=== PATIENT | female | born 1935 | race Caucasian/White ===

== ENCOUNTER 2017-03-19 10:22 | Outpatient (CLI) | payer MEDICARE, OTHER | END 2017-03-19 10:23 | disposition home or self-care (01) | DX: Z12.31 Encounter for screening mammogram for malignant neoplasm of breast (principal); Z85.3 Personal history of malignant neoplasm of breast ==

== ENCOUNTER 2017-03-27 10:53 | Outpatient (CLI) | payer MEDICARE, OTHER | END 2017-03-27 10:54 | disposition home or self-care (01) | DX: I48.2 Chronic atrial fibrillation (principal) ==

== ENCOUNTER 2017-03-28 12:04 | Outpatient (CLI) | payer MEDICARE, OTHER | END 2017-03-28 12:05 | disposition home or self-care (01) | DX: I48.91 Unspecified atrial fibrillation (principal); I51.7 Cardiomegaly; I07.1 Rheumatic tricuspid insufficiency ==

== ENCOUNTER 2017-04-17 14:36 | Outpatient (CLI) | payer MEDICARE, OTHER | END 2017-04-17 14:37 | disposition home or self-care (01) | LOC: RT 14:36 | PROVIDERS: ATTEND Internal Medicine Cardiovascular Disease | DX: I48.91 Unspecified atrial fibrillation (principal) | CPT/HCPCS: 93005 ==

== ENCOUNTER 2017-06-02 14:08 | Outpatient (CLI) | payer MEDICARE, OTHER | END 2017-06-02 14:09 | disposition home or self-care (01) | LOC: LAB 14:08 | PROVIDERS: ATTEND Internal Medicine | DX: R07.2 Precordial pain (principal) | CPT/HCPCS: 36415; 84484 ==

== ENCOUNTER 2017-06-12 15:48 | Outpatient (CLI) | payer MEDICARE, OTHER ==
[2017-06-12 16:10] LABS: CALCIUM 8.9 mg/dL (8.5-10.3); POTASSIUM 3.8 mmol/L (3.5-5.0)
== END 2017-06-12 15:49 | disposition home or self-care (01) ==
LOC: LAB 15:48
PROVIDERS: ATTEND Internal Medicine
DX: I50.9 Heart failure, unspecified (principal)
CPT/HCPCS: 36415; 80048; 83880

== ENCOUNTER 2017-07-17 09:09 | Emergency (ER) | payer MEDICARE, OTHER ==
--- NOTE | 2017-07-17 09:28 | ED Physician Documentation ---
PD HPI CHEST PAIN - Stated complaint Stated Complaint: ELEVATED HEART RATE - Chief complaint Chief Complaint: Cardiac - History obtained from History obtained from: Patient - History of Present Illness Timing - onset: How many days ago (she has had some upper abd pains for several days. Also had chronic atrial fib, so seen in Cardiology at [facility] 2 days ago with cardioversion, which got her to NSR. She is feeling generally some nausea and mild general weakness. Still with the upper abd fullness. Is scheduled for outpt abd U/S this morning. Lowber that her heart rate was elevated briefly this morning. She was checking in for the U/S test, and told traveling clerk about the fast HR , and was suggested to be seen in the ED. She does not feel the fast heart rate while here.) Timing - onset during: Rest Timing - duration: Seconds Timing - details: Intermittant Quality: Tightness (feeling of fast heart rate intermittently the past 2 days.) Location: Left chest, Other (she has had upper abd fullness for the past week or so.) Worsened by: No: Inspiration, Movement, Palpation Associated symptoms: Palpitations. No: Shortness of air, Diaphoresis, Nausea, Feeling faint / dizzy Similar symptoms before: Diagnosis Recently seen: Clinic (Cardiology at [facility] with cardioversion atrial fib to sinus 2 days ago.) Review of Systems Constitutional: denies: Fever, Chills Nose: denies: Rhinorrhea / runny nose, Congestion Throat: denies: Sore throat Respiratory: denies: Dyspnea, Cough, Wheezing GI: reports: Abdominal Swelling (upper/right abd for a week or so), Nausea. 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 - Allergies Allergies/Adverse Reactions: Allergies Allergy/AdvReac Type Severity Reaction Status Date / Time ciprofloxacin [From Cipro] Allergy Unknown Verified 07/17/17 09:23 ciprofloxacin HCl * Allergy Unknown Verified 07/17/17 09:23 [From Cipro] Sulfa (Sulfonamide Allergy Unknown Verified 07/17/17 09:23 Antibiotics) PD ED PE NORMAL - Vitals Vital signs reviewed: Yes - General General: Alert and oriented X 3, No acute distress, Well developed/nourished - HEENT HEENT: Moist mucous membranes, Pharynx benign - Neck Neck: Supple, no meningeal sign, No adenopathy - Cardiac Cardiac: RRR, No murmur - Respiratory Respiratory: Clear bilaterally - Abdomen Abdomen: Soft, Non tender Results - Vitals Vitals: Vital Signs - 24 hr 07/17/17 07/17/17 07/17/17 09:18 10:13 10:17 Temperature 36.5 C Heart Rate 64 79 Respiratory 16 16 Rate Blood Pressure 155/70 H 151/74 H Blood Pressure 142/74 H [Left] Blood Pressure 145/78 H [Right] O2 Saturation 94 74 L 07/17/17 07/17/17 11:40 13:18 Temperature Heart Rate 83 68 Respiratory 16 16 Rate Blood Pressure 163/70 H 136/89 H Blood Pressure [Left] Blood Pressure [Right] O2 Saturation 98 100 Oxygen O2 Source Room air - Tele (time rhythm occurred) intermittent fib Telemetry / rhythm strip: Atrial fibrillation (for just few seconds, occurred twice while in ED without corresponding symptoms per patient. ) - Labs Labs: Laboratory Tests 07/17/17 07/17/17 07/17/17 09:50 09:50 09:50 WBC 9.8 RBC 4.40 Hgb 13.7 Hct 40.0 MCV 90.9 MCH 31.1 H MCHC 34.3 RDW 13.6 Plt Count 172 MPV 8.4 Neut # 7.3 H Lymph # 0.9 L [place] # 1.0 Eos # 0.4 Baso # 0.1 Absolute Nucleated RBC 0.00 Nucleated RBCs 0.0 PT 14.8 H INR 1.3 H APTT 52.1 H Sodium 140 Potassium 3.9 Chloride 106 Carbon Dioxide 25 Anion Gap 9.0 BUN 21 H Creatinine 1.0 Estimated GFR (MDRD) 53 L Glucose 111 H Calcium 9.1 Magnesium 2.0 Total Bilirubin 1.6 H AST 18 ALT 22 Alkaline Phosphatase 65 B-Natriuretic Peptide Total Protein 6.8 Albumin 3.9 Globulin 2.9 Albumin/Globulin Ratio 1.3 Lipase 17 L 07/17/17 09:50 WBC RBC Hgb Hct MCV MCH MCHC RDW Plt Count MPV Neut # Lymph # [place] # Eos # Baso # Absolute Nucleated RBC Nucleated RBCs PT INR APTT Sodium Potassium Chloride Carbon Dioxide Anion Gap BUN Creatinine Estimated GFR (MDRD) Glucose Calcium Magnesium Total Bilirubin AST ALT Alkaline Phosphatase B-Natriuretic Peptide 251 H Total Protein Albumin Globulin Albumin/Globulin Ratio Lipase - Rads (name of study) abd U/S Radiology: Prelim report reviewed (possible mass on right kidney, recommend CT. ) abd CT Radiology: Prelim report reviewed (no acute process seen. No mass on kidney.) PD MEDICAL DECISION MAKING - ED course Complexity details: reviewed results, considered differential, d/w patient, d/w supervisor home energy consultant (call her Home Appliance Washing Machine Mechanic office but he was not in office, and awaited vice president of consulting services Cardio to call back, but did not. I talked with Dr. Mejía, who will follow up with her Home Appliance Washing Machine Mechanic and defers judgement of Holter or not to him. Intermittent fib would be expected for this patient. ) Departure - Departure Disposition: 01 Home, Self Care Clinical Impression: Abdominal fullness, Intermittent atrial fibrillation Condition: Stable Record reviewed to determine appropriate education?: Yes Instructions: ED Afib Follow-Up: Edu Mejía MD [Primary Care Provider] - Comments: There were not any abnormalities seen on your CT scan. The questionable spot on the ultrasound was just a normal curvature of the kidney seen on CT. No other abnormalities noted. So that does not explain your abdominal fullness. You could consider trying a stool softener perhaps. Otherwise he did have a couple of very brief episodes of atrial fibrillation for just a few seconds at a time. Your net making supervisor was not in the office today and Dr. Pretty deferred to the net making supervisor to decide if he wanted to do any outpatient monitoring for the heart rhythm. You are on appropriate medications for it and it was not sustained so there may not be any particular treatment change. Given your net making supervisor's office a call tomorrow and talk with them. Return if worsening symptoms. Discharge Date/Time: 07/17/17 13:18
[2017-07-17 10:02] LABS: BASOPHILS # (AUTO) 0.1 10^3/uL (0.0-0.1); BASOPHILS % (AUTO) 0.8 %; EOSINOPHILS # (AUTO) 0.4 10^3/uL (0.0-0.7); EOSINOPHILS % (AUTO) 4.3 %; HGB - HEMOGLOBIN 13.7 g/dL (12.0-16.0); LYMPHOCYTES # (AUTO) 0.9 10^3/uL (1.5-3.5); LYMPHOCYTES % (AUTO) 9.5 %; MEAN CORPUSCULAR HEMOGLOBIN 31.1 pg (27.0-31.0); MEAN CORPUSCULAR HGB CONC 34.3 g/dL (32.0-36.0); MEAN CORPUSCULAR VOLUME 90.9 fL (81.0-99.0); MEAN PLATELET VOLUME 8.4 fL (7.9-10.8); MONOCYTES % (AUTO) 10.5 %; NEUTROPHILS # (AUTO) 7.3 10^3/uL (1.5-6.6); NEUTROPHILS % (AUTO) 74.9 %; RED CELL DISTRIBUTION WIDTH 13.6 % (12.0-15.0); UNCORRECTED WHITE BLOOD COUNT 9.8 x10^3/uL; WHITE BLOOD COUNT 9.8 x10^3/uL (4.8-10.8)
[2017-07-17 10:08] LABS: INR 1.3 (0.8-1.2); PT - PROTHROMBIN TIME 14.8 secs (9.9-12.6)
[2017-07-17 10:16] LABS: PARTIAL THROMBOPLASTIN TIME 52.1 secs (24.9-33.3)
[2017-07-17 10:17] LABS: ALBUMIN/GLOBULIN RATIO 1.3 (1.0-2.2); BILIRUBIN,TOTAL 1.6 mg/dL (0.2-1.0); CALCIUM 9.1 mg/dL (8.5-10.3); POTASSIUM 3.9 mmol/L (3.5-5.0); TOTAL PROTEIN 6.8 g/dL (6.7-8.2)
--- NOTE | 2017-07-17 11:23 | Ultrasound Report ---
ABDOMINAL ULTRASOUND: 07/17/2017 CLINICAL INDICATION: Abdominal distention. TECHNIQUE: Real-time scanning was performed with aircraft sales representative static images obtained. FINDINGS: Visualization is limited by bowel gas and habitus. The liver measures 17 cm. Hepatic echotexture appears unremarkable. No intrahepatic biliary dilatat ion or focal mass is appreciated. The common bile duct measures 5 mm. The gallbladder is normal. T he pancreas and inferior vena cava are obscured by bowel gas. The right kidney measures 9.7 cm, and appears unremarkable. The left kidney measures 11.6 cm, and appears to contain a 5-cm solid vascular mass in the mid pole. Further evaluation with CT IVP is recommended. The spleen measures 11 cm, an d appears unremarkable. The abdominal aorta is normal in caliber. No free fluid is present. IMPRESSION: POSSIBLE SOLID LEFT RENAL MASS. FURTHER EVALUATION WITH CT IVP IS RECOMMENDED. LIMITED VISUALIZATION DUE TO BOWEL GAS. JOB #: [id number] EXT JOB #:[id number]
[2017-07-17] MEDS ORDERED: IOPAMIDOL-300 100 ML VIAL IVP ONE (12:29)
--- NOTE | 2017-07-17 12:44 | CT Preliminary Report ---
Exam: CT Abdomen/Pelvis W/ IMPRESSION: 1. The focal area of concern seen by ultrasound corresponds to an unusual "dromedary hump" involving the lateral aspect of the left kidney. Normal anatomy is demonstrated. 2. Right kidney is normal. 3. Multilevel degenerative disk disease. 18 degrees scoliosis between L1-L2 and L4-L5. [facility] SITE ID: [id number]
--- NOTE | 2017-07-17 12:56 | CT Report ---
EXAM: CT ABDOMEN AND PELVIS EXAM DATE: 07/17/2017 12:28 PM. CLINICAL HISTORY: Kidney mass on U/S. COMPARISONS: Ultrasound done earlier today. TECHNIQUE: Routine helical CT imaging was performed through the abdomen and pelvis. IV contrast: 100 mL Isovue 300, no reaction. Enteric contrast: No. Reconstructions: Coronal and sagittal. In accordance with CT protocol optimization, one or more of the following dose reduction techniques w ere utilized for this exam: automated exposure control, adjustment of mA and/or KV based on patient s ize, or use of iterative reconstructive technique. FINDINGS: Lung Bases: Unremarkable. Liver: Normal. No masses. Gallbladder/Bile Ducts: Unremarkable. Spleen: Normal. Pancreas: Normal. Adrenal Glands: Normal. Kidneys: Focal area of concern on ultrasound corresponds to a prominent dromedary hump involving the midportion of the left kidney. No abnormal enhancement or anatomy is noted. Right kidney is normal. Peritoneal Cavity/Bowel: Normal. No free fluid, free air or adenopathy. No masses or acute inflammato ry process. The appendix is well visualized and normal. Pelvic Organs: Normal. The bladder and visualized pelvic organs are within normal limits. Vasculature: No aneurysms or other significant abnormality. Bones: Multilevel degenerative disk disease is present. 18 degrees of dextroscoliosis present between L1-L2 and L4-L5. Other: None. IMPRESSION: 1. The focal area of concern seen by ultrasound corresponds to an unusual "dromedary hump" involving the lateral aspect of the left kidney. Normal anatomy is demonstrated. 2. Right kidney is normal. 3. Multilevel degenerative disk disease. 18 degrees of scoliosis between L1-L2 and L4-L5. [facility] Referring Provider Line: [phone] SITE ID: [id number]
[2017-07-17 13:20] VITALS: BP 136/89
== END 2017-07-17 13:18 | disposition home or self-care (01) ==
LOC: ED 09:09
DX: I48.91 Unspecified atrial fibrillation (principal); R14.0 Abdominal distension (gaseous); I45.10 Unspecified right bundle-branch block
CPT/HCPCS: 36415; 74177; 76700; 80053; 83690; 83735; 83880; 85025; 85610; 85730; 93005; 99284; Q9967

== ENCOUNTER 2017-09-01 14:52 | Outpatient (CLI) | payer MEDICARE, OTHER ==
[2017-09-01 15:17] LABS: BILIRUBIN,URINE NEGATIVE (NEGATIVE)
[2017-09-01 15:45] LABS: WBC,URINE >25 /HPF (0-5)
[2017-09-01 15:46] LABS: UR CULTURE IF IND INDICATED
== END 2017-09-01 14:53 | disposition home or self-care (01) ==
LOC: LAB 14:52
PROVIDERS: ATTEND Urology
DX: R30.0 Dysuria (principal)
CPT/HCPCS: 81001; 87077; 87086

== ENCOUNTER 2017-09-11 16:51 | Outpatient (CLI) | payer MEDICARE, OTHER ==
[2017-09-11 17:29] LABS: BUN - BLOOD UREA NITROGEN 27 mg/dL (6-20); CALCIUM 9.2 mg/dL (8.5-10.3); CARBON DIOXIDE - CO2 24 mmol/L (21-32); CHLORIDE 102 mmol/L (101-111); CREATININE 1.1 mg/dL (0.4-1.0); GFR - MDRD 48 (>89); GLUCOSE 109 mg/dL (70-100); SODIUM 138 mmol/L (135-145)
== END 2017-09-11 16:52 | disposition home or self-care (01) ==
LOC: LAB 16:51
PROVIDERS: ATTEND Internal Medicine
DX: I48.92 Unspecified atrial flutter (principal); Z79.899 Other long term (current) drug therapy
CPT/HCPCS: 36415; 80048; 80162

== ENCOUNTER 2017-10-11 01:08 | Outpatient (CLI) | payer MEDICARE, OTHER | END 2017-10-11 01:09 | disposition critical access hospital (66) | LOC: EMS 01:08 | PROVIDERS: ATTEND Surgery | DX: R06.00 Dyspnea, unspecified (principal); I49.9 Cardiac arrhythmia, unspecified | CPT/HCPCS: A0425; A0427 ==

== ENCOUNTER 2017-10-11 01:19 | Observation (INO) | payer MEDICARE, OTHER ==
--- NOTE | 2017-10-11 02:36 | ED Physician Documentation ---
PD HPI DYSPNEA - Stated complaint Stated Complaint: SOA - Chief complaint Chief Complaint: Resp - History obtained from History obtained from: Patient - History of Present Illness Timing - onset: Enter time (23:00), Today Timing - onset during: Sleep Timing - details: Abrupt onset Pain level now: 0 Improved by: Rest Worsened by: Exertion Associated symptoms: Bilateral edema. No: Fever, Cough, Chest pain / discomfort , Palpitations, Diaphoresis, Unilateral edema Recently seen: Other ([facility] (outpatient setting; see below)) - Additional information Additional information: patient has h/o paroxysmal atrial fibrillation and went to [facility] yesterday for scheduled, elective cardioversion, but when she arrived, she was found to be in a normal sinus rhythm. While she was there, however, a chest xray was performed and diuretics given, as patient was dyspneic (this is per notes faxed from [facility]; patient, however, tells me she had no difficulty breathing yesterday and was told the CXR was normal). Patient awoke 11 PM tonight from sleep dyspneic, which she says she has not had before. Review of Systems Constitutional: denies: Fever, Chills, Sweats Cardiac: reports: Pedal edema. denies: Chest pain / pressure, Palpitations Respiratory: reports: Dyspnea. 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 - Present Medications Home Medications: Ambulatory Orders Medication Instructions Recorded Confirmed Acetaminophen 1 tab PO PRN PRN 10/11/17 10/11/17 Lactobacillus Acidophilus 1 tab PO DAILY 10/11/17 10/11/17 [Probiotic Acidophilus] Levothyroxine Sodium [Synthroid] 1 tab PO DAILY 10/11/17 10/11/17 Pravastatin [Pravachol] 1 tab PO DAILY 10/11/17 10/11/17 - Allergies Allergies/Adverse Reactions: Allergies Allergy/AdvReac Type Severity Reaction Status Date / Time ciprofloxacin [From Cipro] Allergy Unknown Verified 10/11/17 01:27 ciprofloxacin HCl * Allergy Unknown Verified 10/11/17 01:27 [From Cipro] Sulfa (Sulfonamide Allergy Unknown Verified 10/11/17 01:27 Antibiotics) - Social History Does the pt smoke?: No Smoking Status: Never smoker Does the pt drink ETOH?: No Does the pt have substance abuse?: No - Immunizations Immunizations are current?: Yes PD ED PE NORMAL - Vitals Vital signs reviewed: Yes - General General: Alert and oriented X 3, Well developed/nourished, Other (tachypneic; able to speak in full sentences although she becomes dyspneic with conversation) - HEENT HEENT: Moist mucous membranes - Neck Neck: Supple, no meningeal sign - Cardiac Cardiac: RRR, No murmur - Respiratory Respiratory: Clear bilaterally - Abdomen Abdomen: Soft, Non tender - Derm Derm: Normal color, Warm and dry - Neuro Neuro: Alert and oriented X 3 PD ED PE EXPANDED - Respiratory Respiratory: Other (tachypneic) - Extremities Extremities: Pedal edema bilateral (1+/mild) Results - Vitals Vitals: Vital Signs - 24 hr 10/11/17 10/11/17 10/11/17 01:24 02:20 03:59 Temperature 36.8 C Heart Rate 70 74 70 Respiratory 20 18 18 Rate Blood Pressure 165/58 H 154/50 H 159/60 H O2 Saturation 92 97 95 Oxygen O2 Source Nasal cannula - EKG (time done) No standard instances Rate: Rate (enter#) (68) Rhythm: NSR [place]: Normal Intervals: Normal NH, RBBB QRS: Normal Ischemia: Normal ST segments - Labs Labs: Laboratory Tests 10/11/17 10/11/17 10/11/17 02:30 02:30 02:30 WBC 13.7 H RBC 4.31 Hgb 13.2 Hct 40.2 MCV 93.3 MCH 30.7 MCHC 32.9 RDW 14.1 Plt Count 165 MPV 8.6 Neut # 10.7 H Lymph # 1.1 L [place] # 1.4 H Eos # 0.4 Baso # 0.1 Absolute Nucleated RBC 0.00 Nucleated RBC % 0.0 D-Dimer Sodium 140 Potassium 3.8 Chloride 109 Carbon Dioxide 23 Anion Gap 8.0 BUN 25 H Creatinine 0.9 Estimated GFR (MDRD) 60 L Glucose 119 H Calcium 8.8 Troponin I < 0.04 B-Natriuretic Peptide 10/11/17 10/11/17 02:30 02:30 WBC RBC Hgb Hct MCV MCH MCHC RDW Plt Count MPV Neut # Lymph # [place] # Eos # Baso # Absolute Nucleated RBC Nucleated RBC % D-Dimer 209.5 Sodium Potassium Chloride Carbon Dioxide Anion Gap BUN Creatinine Estimated GFR (MDRD) Glucose Calcium Troponin I B-Natriuretic Peptide 505 H - Rads (name of study) chest xray Radiology: Prelim report reviewed, See rad report PD MEDICAL DECISION MAKING - ED course Complexity details: reviewed old records, reviewed results, re-evaluated patient , considered differential, d/w patient ED course: patient reported feeling significant improvement with placement of supplemental (NC) oxygen, as well as worsening of dyspnea with simple movement, such as was involved in getting xrays performed. She also becomes visibly dyspneic during conversation. Departure - Departure Disposition: ED Place in Observation Clinical Impression: Dyspnea Condition: Stable Discharge Date/Time: 10/11/17 04:38
[2017-10-11 02:47] LABS: BASOPHILS # (AUTO) 0.1 10^3/uL (0.0-0.1); BASOPHILS % (AUTO) 0.6 %; EOSINOPHILS # (AUTO) 0.4 10^3/uL (0.0-0.7); EOSINOPHILS % (AUTO) 3.1 %; HCT - HEMATOCRIT 40.2 % (37.0-47.0); HGB - HEMOGLOBIN 13.2 g/dL (12.0-16.0); LYMPHOCYTES # (AUTO) 1.1 10^3/uL (1.5-3.5); MEAN CORPUSCULAR HEMOGLOBIN 30.7 pg (27.0-31.0); MEAN CORPUSCULAR HGB CONC 32.9 g/dL (32.0-36.0); MEAN CORPUSCULAR VOLUME 93.3 fL (81.0-99.0); MEAN PLATELET VOLUME 8.6 fL (7.9-10.8); MONOCYTES # (AUTO) 1.4 10^3/uL (0.0-1.0); MONOCYTES % (AUTO) 10.3 %; NEUTROPHILS # (AUTO) 10.7 10^3/uL (1.5-6.6); RED BLOOD COUNT 4.31 10^6/uL (4.20-5.40); RED CELL DISTRIBUTION WIDTH 14.1 % (12.0-15.0); UNCORRECTED WHITE BLOOD COUNT 13.7 x10^3/uL; WHITE BLOOD COUNT 13.7 x10^3/uL (4.8-10.8)
[2017-10-11 02:49] LABS: CALCIUM 8.8 mg/dL (8.5-10.3); CREATININE 0.9 mg/dL (0.4-1.0); POTASSIUM 3.8 mmol/L (3.5-5.0)
--- NOTE | 2017-10-11 02:50 | XRAY Preliminary Report ---
Exam: XR CHEST 2 VIEW PA/LAT IMPRESSION: 1. Cardiomegaly and pulmonary vascular congestion with bilateral pulmonary opacities likely due to pu lmonary edema or volume overload. 2. There may be minimal pleural effusions. [facility] SITE ID: [id number]
--- NOTE | 2017-10-11 02:53 | XRAY Report ---
EXAM: CHEST RADIOGRAPHY EXAM DATE: 10/11/2017 02:30 AM. CLINICAL HISTORY: Dyspnea. COMPARISON: 04/09/2013. TECHNIQUE: 2 views. FINDINGS: Lungs/Pleura: Pulmonary vascularity appears congested. Bilateral pulmonary opacities probably due to pulmonary edema or volume overload. There may be minimal pleural effusions. No pneumothorax. Mediastinum: Mild cardiomegaly. Other: Degenerative changes in the spine. Surgical clips in the left breast and axilla. IMPRESSION: 1. Cardiomegaly and pulmonary vascular congestion with bilateral pulmonary opacities likely due to pu lmonary edema or volume overload. 2. There may be minimal pleural effusions. [facility] Referring Provider Line: [phone] SITE ID: [id number]
[2017-10-11] MEDS ORDERED: FUROSEMIDE 40 MG/4 ML VIAL IVP STA (03:23)
[2017-10-11] MEDS ORDERED: FUROSEMIDE 40 MG/4 ML VIAL ONE (03:32)
[2017-10-11] MEDS ORDERED: NITROGLYCERIN 2% PASTE TOP STA (04:10)
[2017-10-11] MEDS ORDERED: ONDANSETRON 4 MG/2 ML VIAL IVP PRN (04:12)
[2017-10-11] MEDS ORDERED: SODIUM CHLORIDE FLUSH 0.9% 10 ML SYRINGE IVP PRN (04:12)
[2017-10-11] MEDS ORDERED: IOPAMIDOL-300 100 ML VIAL IVP ONE (04:47)
[2017-10-11] MEDS ORDERED: SOTALOL 80 MG TABLET PO SCH (05:00)
[2017-10-11] MEDS ORDERED: DABIGATRAN 75 MG CAPSULE PO SCH (05:00)
[2017-10-11] MEDS ORDERED: OXYBUTYNIN 5MG TABLET PO SCH (05:00)
--- NOTE | 2017-10-11 05:20 | CT Preliminary Report ---
Exam: CT CHEST ANGIO (PE) IMPRESSION: 1. No pulmonary emboli seen. 2. Cardiomegaly with possible pulmonary edema. Infiltrate not entirely excluded. 3. Bilateral pleural effusions, right greater than left. 4. Mild nonspecific mediastinal adenopathy. [facility] SITE ID: [id number]
--- NOTE | 2017-10-11 05:23 | CT Report ---
EXAM: CT ANGIOGRAM CHEST EXAM DATE: 10/11/2017 04:55 AM. CLINICAL HISTORY: Hypoxia. COMPARISON: None. TECHNIQUE: Routine helical imaging was performed through the chest in the pulmonary arterial phase. I V Contrast: Nonionic. Reconstructions: Coronal 3-D MIP reconstructions.Sagittal and coronal. In accordance with CT protocol optimization, one or more of the following dose reduction techniques w ere utilized for this exam: automated exposure control, adjustment of mA and/or KV based on patient s ize, or use of iterative reconstructive technique. FINDINGS: Pulmonary Arteries: Diagnostic quality: Adequate through the segmental arteries. No evidence for acute or chronic pulmona ry emboli. No evidence of right heart strain. Lungs/Pleura: Small to moderate right and small left pleural effusions. Possible pulmonary edema. Inf iltrate not entirely excluded. No pneumothorax. Mediastinum: Mild cardiomegaly. Trace pericardial effusion. Mild nonspecific mediastinal adenopathy. Thoracic Aorta: Atherosclerosis. No aneurysm or dissection. Upper Abdomen: Unremarkable. Other: Degenerative changes in the spine. Postoperative changes in the left breast and axilla. IMPRESSION: 1. No pulmonary emboli seen. 2. Cardiomegaly with possible pulmonary edema. Infiltrate not entirely excluded. 3. Bilateral pleural effusions, right greater than left. 4. Mild nonspecific mediastinal adenopathy. [facility] Referring Provider Line: [phone] SITE ID: [id number]
[2017-10-11] MEDS: LEVOTHYROXINE 112 MCG TABLET PO SCH ×2 (05:35→06:54)
[2017-10-11] MEDS: SODIUM CHLORIDE FLUSH 0.9% 10 ML SYRINGE IVP SCH ×3 (05:36→21:50)
--- NOTE | 2017-10-11 07:11 | HISTORY & PHYSICAL EXAMINATION ---
DATE OF ADMISSION: 10/11/2017 CHIEF COMPLAINT: Shortness of breath. HISTORY OF PRESENT ILLNESS: The patient is a pleasant 82-year-old, fully functional white female with multiple past medical problems. She was diagnosed with atrial fibrillation in May 2017. Since then, she has been rate-controlled on sotalol and had been anticoagulated on Pradaxa. Her additional medical problems include coronary artery disease. She had an angiogram about 5 years ago , at which time, nonocclusive disease was found not needing intervention. In addition, the patient has congestive heart failure. She had an echocardiogram in March 2017 which showed left ventricular hypertrophy and diastolic dysfunction, plus mildly reduced systolic function with an ejection fraction of 45% to 50%, systolic dysfunction. In addition, there was severe increase in the left atrial index. The left atrium was dilated. Mild AR, mild MR, and moderate TR were described. Notably, the patient does not have history of lung disease, and she has never been oxygen dependent. Regarding recent pertinent history, she was scheduled for cardioversion for AFib , to undergo this procedure in the [facility] system on October 10, 1 day prior to presentation. The ER physician could obtain the records from [facility] from [facility]. Per the record, the patient was seen for paroxysmal atrial fibrillation; however, at the time of exam, was found in a sinus rhythm. Therefore, cardioversion was not needed. There were some medication changes, which included discontinuing atenolol and verapamil, as the patient was bradycardic. Sotalol was continued. In addition, during this visit yesterday, the patient was found with shortness of breath, and she was found to be mildly volume overloaded. Therefore, she was given some furosemide. The history is somewhat contradictory, as the patient tells me she received oral furosemide. However, the record lists IV furosemide to be given. In any case, she became stable after diuresis and felt comfortable going home. Regarding the circumstances of the current admission, the patient woke up around 11:00 p.m. on the night of October 10 and at that time, she experienced the sudden onset of shortness of breath. The dyspnea was worse when she laid flat. Therefore, she got up and tried to walk around. However, when she went back to bed, she felt short of breath again. As her dyspnea got worse, she was worried and pushed her Lif[facility]. Subsequently, she was brought into the ER by ambulance. Upon presentation to the ER, the patient was slightly hypertensive with a blood pressure of 160/60. Her heart rate was normal in the 70s. EKG showed sinus rhythm with right bundle branch block pattern. Notably, the patient did have right bundle branch block in the past. Her temperature was normal at 36.7 Celsius. Most notably, the patient was hypoxic. Her room air oxygen saturation was in the low 90s and on activity, it dipped down to the 80s. The patient required supplemental oxygen to maintain saturations in the mid 90s. She did feel subjectively short of breath and had increased work of breathing, with a respiratory rate in the mid to high 20s. Besides the EKG, the workup in the ER included a chest x-ray which showed cardiomegaly and pulmonary vascular congestion, with minimal pleural effusions. Laboratories showed a slightly elevated white blood cell count at 13, negative troponin, BNP around 500, negative D-dimer, normal renal function, and unremarkable electrolytes. In discussing this case with the ER physician, we entertained sending the patient for CT angiography of the chest, considering that her shortness of breath was sudden and the lung infiltrates were not that impressive. Therefore, from the ER , CT angiography of the chest was ordered which showed no pulmonary embolus, cardiomegaly with pulmonary edema, bilateral pleural effusions--right greater than left, and nonspecific mediastinal adenopathy. The radiologist noted that an infiltrate could not entirely be excluded. PAST MEDICAL HISTORY: 1. Atrial fibrillation, on therapeutic anticoagulation with Pradaxa, rate controlled on sotalol. 2. History of frequent urinary tract infections, for which the patient takes Keflex prophylactically. 3. Macular degeneration, for which the patient was given Avastin. 4. Congestive heart failure. Please see the results of the last echocardiogram listed above in the history of present illness, with both systolic and diastolic dysfunction. 5. History of breast cancer in the , status post lumpectomy, radiation, and hormonal therapy. 6. Dyslipidemia. 7. Hypertension. 8. Gastroesophageal reflux. 9. Temporomandibular disorder. 10. Thyroid disease. 11. Coronary artery disease, nonocclusive disease shown on angiogram 5 years ago. OUTPATIENT MEDICATIONS INCLUDE: 1. Tylenol. 2. Calcium and magnesium supplements. 3. Keflex. 4. Furosemide. 5. Levothyroxine. 6. Multivitamin. 7. Ditropan. 8. Potassium supplement. 9. Pradaxa. 10. Pravastatin. 11. Probiotic. 12. Sotalol. 13. Vitamin D. Recently discontinued medications include atenolol and verapamil. ALLERGIES: 1. CIPROFLOXACIN. 2. SULFA. CODE STATUS: FULL CODE, NOTING THAT THE PATIENT WOULD ACCEPT RESUSCITATION IN CASE OF EMERGENCY, BUT SHE WOULD NOT CONSIDER LONGER-TERM LIFE SUPPORT. SOCIAL HISTORY: The patient is independent with instrumental activities of daily living. She ambulates unassisted. She plays bridge almost everyday and lives with a significant other. She is a lifelong nonsmoker. She reported that she suffered a few falls before she was diagnosed with atrial fibrillation. Since she has been on medication for AFib, she has not had a fall. FAMILY HISTORY: Positive for congestive heart failure in the mother. REVIEW OF SYMPTOMS: Please see pertinent positives listed above in the history of present illness. I completed 12-point review, there was no additional complaint. PHYSICAL EXAMINATION: VITAL SIGNS: See listed above in the history of present illness. GENERAL: The patient is a well-developed elderly female, who appeared short of breath with increased work of breathing on minimal physical activity, and she had to stop while she was talking to catch her breath. She could speak in short sentences. RESPIRATORY: No significant wheezing or crackling. Decreased air entry above all lung bennett, with increased work of breathing. CARDIOVASCULAR: S1, S2. Regular. No pathologic murmur. ABDOMEN: Distended, tympanic, benign. Nontender. Bowel tones active. EXTREMITIES: Signs of chronic venous stasis. No significant pitting edema. NEUROLOGICAL: Alert, oriented, nonfocal. PSYCH: Cooperative. SKIN: No jaundice. No pallor. MUSCULOSKELETAL: Atraumatic. ASSESSMENT/ACTIVE ISSUES/DIAGNOSES: 1. Hypoxia/requiring supplemental oxygen. Most likely etiology is congestive heart failure with both systolic and diastolic dysfunction, with exacerbation. 2. Congestive heart failure, acute on chronic. 3. CT angiography of the chest ruled out pulmonary embolism. Troponin was negative, and EKG did not show acute ischemia, ruling out acute coronary syndrome. 4. On looking at the patient's chest x-ray, besides pulmonary congestion, she appeared to have hyperinflated lungs. As a background, she might have COPD as well, although she was a nonsmoker. 5. Paroxysmal atrial fibrillation, currently rate controlled on sotalol and therapeutically anticoagulated on Pradaxa. On this admission, the patient was in a sinus rhythm. 6. Frequent urinary tract infections, prophylactically taking Keflex. No urinary complaints today. 7. Hemodynamically stable, slightly hypertensive. PLAN AND ORDERS: The patient is getting admitted under an observation status. Will be monitored on telemetry. 1. We will repeat the troponin. Given that the onset of the patient's symptoms was 11:00 p.m. on October 10, we will need at least an 8-hour window to rule out acute coronary syndrome. Besides monitoring, we will treat for a presumed CHF exacerbation. Lasix was already given in the ER, and the patient had quite brisk diuresis. We will follow the clinical course and if needed, later today, more Lasix can be given. I added nitro paste to treat CHF and hypertension as well. 2. We will continue the sotalol and Pradaxa for AFib. 3. We will continue Keflex for UTI prophylaxis. 4. Further plans should depend on the clinical course. If the patient improves on diuresis, then likely no further etiology for her symptoms should be considered. If, however, she remains oxygen-dependent, then perhaps the use of bronchodilators or a short course of antibiotic for possible atypical pneumonia should be considered. 5. DVT prophylaxis not needed, as the patient is therapeutically anticoagulated. 6. Regarding the radiology reading of possible infiltrate, the patient did not really offer symptoms of cough or any upper respiratory symptoms. Her white blood cell count was slightly elevated; however, she was afebrile. For now, I do not see enough indication to add antibiotics. Again, I would follow the clinical course and the response on diuresis. If there is further concern, then I would consider perhaps an atypical infection. Time spent in the care of this patient was 60 minutes. JOB #: [id number] EXT JOB #:[id number] ABEL
[2017-10-11] MEDS: POLYETHYLENE GLYCOL 3350 17 GM PACKET PO SCH (09:25)
[2017-10-11] MEDS: SOTALOL 80 MG TABLET PO SCH ×2 (11:27→22:59)
[2017-10-11] MEDS: OXYBUTYNIN 5MG TABLET PO SCH (19:01)
[2017-10-11] MEDS: FUROSEMIDE 40 MG TABLET PO SCH (19:18)
[2017-10-11 20:38] LABS: BILIRUBIN,URINE NEGATIVE (NEGATIVE)
[2017-10-11 20:48] LABS: UR CULTURE IF IND INDICATED; WBC,URINE >25 /HPF (0-5)
[2017-10-11] MEDS ORDERED: PRAVASTATIN 40 MG TABLET PO SCH (21:00)
[2017-10-11] MEDS ORDERED: cephALEXin 250 MG CAPSULE PO SCH (21:00)
[2017-10-11] MEDS: DABIGATRAN 75 MG CAPSULE PO SCH (21:44)
[2017-10-12] MEDS: LEVOTHYROXINE 112 MCG TABLET PO SCH (06:16)
[2017-10-12] MEDS: SODIUM CHLORIDE FLUSH 0.9% 10 ML SYRINGE IVP SCH ×2 (06:17→13:49)
[2017-10-12 08:15] LABS: BASOPHILS # (AUTO) 0.1 10^3/uL (0.0-0.1); BASOPHILS % (AUTO) 1.3 %; EOSINOPHILS # (AUTO) 0.6 10^3/uL (0.0-0.7); EOSINOPHILS % (AUTO) 5.9 %; HCT - HEMATOCRIT 38.3 % (37.0-47.0); HGB - HEMOGLOBIN 13.2 g/dL (12.0-16.0); LYMPHOCYTES # (AUTO) 1.4 10^3/uL (1.5-3.5); LYMPHOCYTES % (AUTO) 13.8 %; MEAN CORPUSCULAR HEMOGLOBIN 31.5 pg (27.0-31.0); MEAN CORPUSCULAR HGB CONC 34.6 g/dL (32.0-36.0); MEAN PLATELET VOLUME 8.6 fL (7.9-10.8); MONOCYTES # (AUTO) 1.3 10^3/uL (0.0-1.0); MONOCYTES % (AUTO) 13.1 %; NEUTROPHILS # (AUTO) 6.6 10^3/uL (1.5-6.6); NEUTROPHILS % (AUTO) 65.9 %; RED CELL DISTRIBUTION WIDTH 13.8 % (12.0-15.0); UNCORRECTED WHITE BLOOD COUNT 9.9 x10^3/uL; WHITE BLOOD COUNT 9.9 x10^3/uL (4.8-10.8)
[2017-10-12 08:26] LABS: CALCIUM 9.2 mg/dL (8.5-10.3); CREATININE 0.9 mg/dL (0.4-1.0); POTASSIUM 3.9 mmol/L (3.5-5.0)
[2017-10-12] MEDS ORDERED: FUROSEMIDE 40 MG TABLET PO SCH (09:00)
[2017-10-12] MEDS: NITROFURANTOIN MACRO 100 MG CAPSULE PO SCH ×2 (09:25→16:57)
[2017-10-12] MEDS: FUROSEMIDE 40 MG TABLET PO SCH (09:25)
[2017-10-12] MEDS: OXYBUTYNIN 5MG TABLET PO SCH (09:25)
[2017-10-12] MEDS: DABIGATRAN 75 MG CAPSULE PO SCH (09:25)
[2017-10-12] MEDS: POLYETHYLENE GLYCOL 3350 17 GM PACKET PO SCH (09:35)
[2017-10-12] MEDS ORDERED: SOTALOL 80 MG TABLET PO SCH (12:00)
[2017-10-12] MEDS ORDERED: OXYBUTYNIN 5MG TABLET PO SCH ×2 (12:00→21:00)
[2017-10-12] MEDS ORDERED: POTASSIUM CHLORIDE 10 MEQ CAPSULE PO SCH (12:00)
--- NOTE | 2017-10-12 15:52 | PROVIDER PROGRESS NOTE ---
Subjective - Prog Note Date Prog Note Date: 10/11/17 Prog Note Time: 08:00 - Subjective Pt reports feeling: Improved Subjective: Lissa notes SOB with activity, but improved from the time of admission. She denies chest pain, N/V, dysuria or new cough. Current Medications - Current Medications Current Medications: Active Medications Generic Name Dose Route Start Last Admin Trade Name Freq PRN Reason Stop Dose Admin Dabigatran 75 mg 10/11/17 21:00 10/12/17 09:25 Pradaxa PO 75 mg BID TASNEEM Administration Furosemide 40 mg 10/11/17 18:47 10/12/17 09:25 Lasix PO 40 mg DAILY TASNEEM Administration Levothyroxine Sodium 112 mcg 10/11/17 05:00 10/12/17 06:16 Synthroid PO 112 mcg QDAC TASNEEM Administration Nitrofurantoin 100 mg 10/12/17 08:00 10/12/17 09:25 Macrobid PO 100 mg BID TASNEEM Administration Ondansetron HCl 4 mg 10/11/17 04:12 Zofran Inj IVP Q6HR PRN Nausea / Vomiting Oxybutynin Chloride 5 mg 10/12/17 21:00 Ditropan PO BID TASNEEM Polyethylene Glycol 17 gm 10/11/17 09:00 10/12/17 09:35 Miralax PO Not Given DAILY TASNEEM Potassium Chloride 10 meq 10/12/17 12:00 10/12/17 12:09 Micro-K PO 10 meq DAILYWM TASNEEM Administration Pravastatin Sodium 40 mg 10/11/17 21:00 10/11/17 21:44 Pravachol PO 40 mg QPM TASNEEM Administration Sodium Chloride 10 ml 10/11/17 04:12 Normal Saline Flush 0.9% IVP PRN PRN NEEDED PER PROVIDER ORDERS Sodium Chloride 10 ml 10/11/17 06:00 10/12/17 13:49 Normal Saline Flush 0.9% IVP 10 ml Q8HR TASNEEM Administration Sotalol HCl 40 mg 10/12/17 12:00 10/12/17 12:09 Betapace PO 40 mg 1200 TASNEEM Administration Acetaminophen 650 mg PO Q4H PRN 10/11/17 Cephalexin [Keflex] 250 mg PO QPM 10/11/17 Cholecalciferol [Vitamin D3] unit PO 10/11/17 Dabigatran Etexilate Mesylate [Pradaxa] 150 mg PO BID 10/11/17 Furosemide [Lasix] 40 mg PO DAILY 10/11/17 Lactobacillus Acidophilus [Probiotic Acidophilus] 2 tab PO QPM 10/11/17 Levothyroxine Sodium [Synthroid] 112 mcg PO QDAC 10/11/17 Multivitamin [Theragran] 1 each PO DAILY 10/11/17 Oxybutynin Chloride [Ditropan Xl] 10 mg PO DAILY 10/11/17 Potassium Chloride [Micro-K] 10 meq PO 0800 10/11/17 Pravastatin [Pravachol] 40 mg PO QPM 10/11/17 Sotalol [Betapace] 40 mg PO BID 10/11/17 Ubidecarenone/Vit E Acetate [Co Q-10 100 mg Softgel] 1 cap PO DAILY 10/11/17 Objective - Vital Signs/Intake & Output Reviewed Vital Signs: Yes Vital Signs: Vital Signs x48h Pulse Pulse Resp BP Pulse Ox 10/12/17 13:00 61 20 131/57 H 95 10/12/17 11:00 77 Intake & Output: Intake & Output 10/09/17 10/10/17 10/11/17 10/12/17 23:59 23:59 23:59 23:59 Intake Total 1000 850 Output Total 2600 901 Balance -1600 -51 - Objective General Appearance: positive: No acute distress, Alert Eyes Bilateral: positive: Normal inspection, PERRL ENT: positive: ENT inspection nml, Pharynx nml, No signs of dehydration Neck: positive: Nml inspection, Thyroid nml, No JVD, Trachea midline Respiratory: positive: Chest non-tender, No respiratory distress, Breath sounds nml Cardiovascular: positive: Irregularly irregular, Bradycardia, Systolic murmur Peripheral Pulses: 2+ Radial (R), 2+ Radial (L) Abdomen: positive: Non-tender, No organomegaly, Nml bowel sounds, No distention Back: positive: Nml inspection Skin: positive: Color nml, No rash, Warm, Dry Extremities: positive: Non-tender, Full ROM, Nml appearance, No pedal edema ( trace) Neurologic/Psychiatric: positive: Oriented x3, CN's nml (2-12), Motor nml, Sensation nml, Mood/affect nml, Weakness (at times.) - Lab Results Fish Bones: 10/12/17 08:08 10/12/17 08:08 Other Labs: Lab Results x24hrs 10/12/17 10/12/17 10/12/17 Range/Units 08:08 08:08 08:08 WBC 9.9 (4.8-10.8) x10^3/uL RBC 4.20 (4.20-5.40) 10^6/uL Hgb 13.2 (12.0-16.0) g/dL Hct 38.3 (37.0-47.0) % MCV 91.0 (81.0-99.0) fL MCH 31.5 H (27.0-31.0) pg MCHC 34.6 (32.0-36.0) g/dL RDW 13.8 (12.0-15.0) % Plt Count 159 (130-450) 10^3/uL MPV 8.6 (7.9-10.8) fL Neut # 6.6 (1.5-6.6) 10^3/uL Lymph # 1.4 L (1.5-3.5) 10^3/uL [place] # 1.3 H (0.0-1.0) 10^3/uL Eos # 0.6 (0.0-0.7) 10^3/uL Baso # 0.1 (0.0-0.1) 10^3/uL Absolute Nucleated RBC 0.00 x10^3/uL Nucleated RBC % 0.0 /100WBC Sodium 141 (135-145) mmol/L Potassium 3.9 (3.5-5.0) mmol/L Chloride 106 (101-111) mmol/L Carbon Dioxide 25 (21-32) mmol/L Anion Gap 10.0 (6-13) BUN 19 (6-20) mg/dL Creatinine 0.9 (0.4-1.0) mg/dL Estimated GFR (MDRD) 60 L (>89) Glucose 137 H (70-100) mg/dL Calcium 9.2 (8.5-10.3) mg/dL Magnesium 2.0 (1.7-2.8) mg/dL B-Natriuretic Peptide 376 H (5-100) pg/mL Urine Color Urine Clarity (CLEAR) Urine pH (5.0-7.5) PH Ur Specific Gray (1.002-1.030) Urine Protein (NEGATIVE) mg/dL Urine Glucose (UA) (NEGATIVE) mg/dL Urine Ketones (NEGATIVE) mg/dL Urine Occult Blood (NEGATIVE) Urine Nitrite (NEGATIVE) Urine Bilirubin (NEGATIVE) Urine Urobilinogen (NORMAL) E.U./dL Ur Leukocyte Esterase (NEGATIVE) Urine RBC (0-5) /HPF Urine WBC (0-5) /HPF Urine WBC Clumps Ur Squamous Epith Cells (<= Few) Urine Bacteria (None Seen) /HPF Urine Culture Comments 10/11/17 Range/Units 19:15 WBC (4.8-10.8) x10^3/uL RBC (4.20-5.40) 10^6/uL Hgb (12.0-16.0) g/dL Hct (37.0-47.0) % MCV (81.0-99.0) fL MCH (27.0-31.0) pg MCHC (32.0-36.0) g/dL RDW (12.0-15.0) % Plt Count (130-450) 10^3/uL MPV (7.9-10.8) fL Neut # (1.5-6.6) 10^3/uL Lymph # (1.5-3.5) 10^3/uL [place] # (0.0-1.0) 10^3/uL Eos # (0.0-0.7) 10^3/uL Baso # (0.0-0.1) 10^3/uL Absolute Nucleated RBC x10^3/uL Nucleated RBC % /100WBC Sodium (135-145) mmol/L Potassium (3.5-5.0) mmol/L Chloride (101-111) mmol/L Carbon Dioxide (21-32) mmol/L Anion Gap (6-13) BUN (6-20) mg/dL Creatinine (0.4-1.0) mg/dL Estimated GFR (MDRD) (>89) Glucose (70-100) mg/dL Calcium (8.5-10.3) mg/dL Magnesium (1.7-2.8) mg/dL B-Natriuretic Peptide (5-100) pg/mL Urine Color YELLOW Urine Clarity CLOUDY (CLEAR) Urine pH 6.0 (5.0-7.5) PH Ur Specific Gray 1.020 (1.002-1.030) Urine Protein 30 H (NEGATIVE) mg/dL Urine Glucose (UA) NEGATIVE (NEGATIVE) mg/dL Urine Ketones NEGATIVE (NEGATIVE) mg/dL Urine Occult Blood LARGE H (NEGATIVE) Urine Nitrite POSITIVE H (NEGATIVE) Urine Bilirubin NEGATIVE (NEGATIVE) Urine Urobilinogen 0.2 (NORMAL) (NORMAL) E.U./dL Ur Leukocyte Esterase MODERATE H (NEGATIVE) Urine RBC 11-25 H (0-5) /HPF Urine WBC >25 H (0-5) /HPF Urine WBC Clumps PRESENT Ur Squamous Epith Cells NONE SEEN (<= Few) Urine Bacteria Many H (None Seen) /HPF Urine Culture Comments INDICATED - Diagnostic Imaging Diagnostic Imaging Results: positive: Prelim report reviewed Assessment/Plan - Problem List (1) Hypoxemia requiring supplemental oxygen Impression: Upon admission, patient was hypoxic with oxygen saturations less than 88%. This is now resolved and during exam did not appear hypoxic, speaking full sentences. Plan: Continue to do spot check oxygen saturations per nursing. (2) Acute on chronic diastolic CHF (congestive heart failure) Impression: Patient has a known history of this. 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 Plan: Echocardiogram should be repeated and will be completed before discharge. (3) Intermittent atrial fibrillation Impression: Patient has a known history of this and sees out patient brick tosser. Plan: Patient was taught how to perform the valsalva maneuver in times of noted atrial fibrillation with uncontrolled rates. We will continue to adjust Sotolol dose overnight. (4) Chronic UTI Impression: Patient takes Keflex outpatient, but has had mild dysuria since being admitted to the hospital. Plan: Sending UA and culture. She will continue on Keflex as we rule out UTI.
--- NOTE | 2017-10-12 15:56 | Discharge Plan ---
Discharge Plan Disposition: 01 Home, Self Care Condition: Good Prescriptions: Nitrofurantoin [Macrobid] 100 mg PO BID #13 capsule Sotalol [Betapace] 40 mg PO 1200 #30 tablet Diet: Cardiac Activity Restrictions: No Restrictions Shower Restrictions: No Driving Restrictions: No Weight Bearing: Full Weight Additional Instructions or Follow Up instructions: You have paroxysmal atrial fibrillation which means you have the chance of going into this rhythm anytime. We believe that by maintaining a low dose of Sotalol once daily, you will generally be in a sinus rhythm. If you find you are no longer in a nice rhythm because you feel "out of sorts", try the bearing down maneuver such as if you are going to have a bowel movement , check your pulse like I showed you and it should be steady and slow. Please see your PCP in the next few days for appropriate blood work, urine culture final results, EKG and as a follow up to your hospitalization. Take all medications as prescribed including Nitrofurantoin x7 days (13 pills remaining), then resume your previous bladder pill Keflex. Take just one dose of Sotalol at lunch time (12noon) to control your heart arhythmia (atrial fibrillation). We will get your records to your PCP, Cardiology and Urology to keep them up to date. Thank you for letting me take care of you! Follow-Up Care: [facility] - Cardiac No Smoking: If you smoke, Please STOP! Call for help. Follow-up with: Edu Mejía MD [Primary Care Provider] -
[2017-10-12 16:25] VITALS: BP 119/39
--- NOTE | 2017-10-12 16:31 | DISCHARGE SUMMARY ---
Discharge Summary Admit Date: 10/11/17 Discharge Date: 10/12/17 Discharging Provider: YULIYA Montoya Code Status: Attempt Resuscitation Condition at Discharge: Good Discharge Disposition: 01 Home, Self Care - DIAGNOSES Admission Diagnoses: Hypoxia requiring supplemental oxygen Acute on chronic CHF PE rule out Paroxysmal atrial fibrillation Frequent UTIs Discharge Diagnoses with Status of Each Condition: Hypoxia (R09.02) -Upon admission, patient was hypoxic with oxygen saturations less than 88%. This is now resolved and during exam did not appear hypoxic, speaking full sentences. Plan: Continue to do spot check oxygen saturations per nursing. CHF exacerbation (I50.9) -Patient has a known history of this. 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 Plan: Echocardiogram should be repeated and will be completed before discharge. Atrial fibrillation (I48.91) -Patient has a known history of this and sees out patient delinquency prevention officer. Plan: Patient was taught how to perform the valsalva maneuver in times of noted atrial fibrillation with uncontrolled rates. We will continue to adjust Sotolol dose overnight. UTI (urinary tract infection) due to Enterococcus (N39.0) -Patient takes Keflex outpatient, but has had mild dysuria since being admitted to the hospital. Plan: UA and culture. Macrobid will be prescribed for #13 more doses-pending sensitivities. - HPI History of Present Illness: Lissa Trent is a well groomed 82 year old female with multiple past medical problems. She was most recently diagnosed with atrial fibrillation in May of 2017. Since that time she has been rate controlled on Sotalol and anticoagulated with Pradaxa. She has a history of CAD and had an angiogram about 5 years ago without intervention, CHF with an echocardiogram in March 2017 which showed LV hypertrophy and diastolic dysfunction. In addition, there was severe increased LA index, an EF of 45-50%, systolic dysfunction, LA was dilated, mild AR, mild MR and moderate TR. There has been no history of lung disease and patient has never been oxygen dependent. The patient was scheduled to have an atrial fibrillation cardioversion in [place], but was sent home after being found to be in sinus rhythm. They made some medication changes after discovering her to be bradycardic. Round 11pm that night she woke up with sudden onset of SOB. The dyspnea was worsened with lying flat. She pushed her [facility] for help and came to the ED. She was found to be hypotensive, hypoxic, and bradycardic. A chest x-ray was obtained that showed cardiomegaly with pulmonary congestion and bilateral pleural effusions. Other findings included increased WBCs, BNP ~500, and concern for pulmonary emboli. She was admitted for observation for further work up. - ALLERGIES Allergies/Adverse Reactions: Allergies Allergy/AdvReac Type Severity Reaction Status Date / Time ciprofloxacin [From Cipro] Allergy Unknown Verified 10/11/17 01: ciprofloxacin HCl * Allergy Unknown Verified 10/11/17 01:27 [From Cipro] Sulfa (Sulfonamide Allergy Unknown Verified 10/11/17 01:27 Antibiotics) - MEDICATIONS Home Medications: Ambulatory Orders Medication Instructions Recorded Confirmed Acetaminophen 650 mg PO Q4H PRN 10/11/17 10/11/17 Cholecalciferol [Vitamin D3] unit PO 10/11/17 Dabigatran Etexilate Mesylate 150 mg PO BID 10/11/17 10/11/17 [Pradaxa] Furosemide [Lasix] 40 mg PO DAILY 10/11/17 10/11/17 Lactobacillus Acidophilus 2 tab PO QPM 10/11/17 10/11/17 [Probiotic Acidophilus] Levothyroxine Sodium [Synthroid] 112 mcg PO QDAC 10/11/17 10/11/17 Multivitamin [Theragran] 1 each PO DAILY 10/11/17 10/11/17 Oxybutynin Chloride [Ditropan Xl] 10 mg PO DAILY 10/11/17 10/11/17 Potassium Chloride [Micro-K] 10 meq PO 0800 10/11/17 10/11/17 Pravastatin [Pravachol] 40 mg PO QPM 10/11/17 10/11/17 Ubidecarenone/Vit E Acetate [Co 1 cap PO DAILY 10/11/17 10/11/17 Q-10 100 mg Softgel] Dabigatran [Pradaxa] 75 mg PO BID capsule 10/12/17 Levothyroxine [Synthroid] 112 mcg PO QDAC tablet 10/12/17 Nitrofurantoin [Macrobid] 100 mg PO BID #13 capsule 10/12/17 Pravastatin [Pravachol] 40 mg PO QPM tablet 10/12/17 Sotalol [Betapace] 40 mg PO 1200 #30 tablet 10/12/17 - PHYSICAL EXAM AT DISCHARGE General Appearance: positive: No acute distress, Alert Eyes Bilateral: positive: Normal inspection, PERRL ENT: positive: ENT inspection nml, Pharynx nml, Dry mucous membranes Neck: positive: Nml inspection, Thyroid nml, No JVD, Trachea midline Respiratory: positive: Chest non-tender, No respiratory distress, Other ( diminished bilateral lower lobes.) Cardiovascular: positive: Irregularly irregular, Systolic murmur Abdomen: positive: Non-tender, No organomegaly, Nml bowel sounds, No distention Skin: positive: Color nml, No rash, Warm, Dry Extremities: positive: Non-tender, Full ROM, Pedal edema Neurologic/Psychiatric: positive: Oriented x3, CN's nml (2-12), Motor nml, Sensation nml, Mood/affect nml Reflexes: Bicep (R): 3+, Bicep (L): 3+ - LABS Result Diagrams: 10/12/17 08:08 10/12/17 08:08 - DIAGNOSTIC IMAGING Diagnostic Imaging Results: Final report reviewed Diagnostic Imaging Results Comments: Echocardiogram 10/11/17: Mild concentric left ventricle hypertrophy. Overall LV systolic function is mildly impaired with an EF of 45-50%. Severe increase in the LA volume index. Mild RA enlargement, mild aortic regurgitation. Mild to moderate tricuspid regurgitation. - FOLLOW UP Follow Up: You have paroxysmal atrial fibrillation which means you have the chance of going into this rhythm anytime. We believe that by maintaining a low dose of Sotalol once daily, you will generally be in a sinus rhythm. If you find you are no longer in a nice rhythm because you feel "out of sorts", try the bearing down maneuver such as if you are going to have a bowel movement , check your pulse like I showed you and it should be steady and slow. Please see your PCP in the next few days for appropriate blood work, urine culture final results, EKG and as a follow up to your hospitalization. Take all medications as prescribed including Nitrofurantoin x7 days (13 pills remaining), then resume your previous bladder pill Keflex. Take just one dose of Sotalol at lunch time (12noon) to control your heart arhythmia (atrial fibrillation). - TIME SPENT Time Spent in Discharge (Minutes): 60
== END 2017-10-12 17:02 | disposition home or self-care (01) ==
LOC: EDUNIT# → ED 01:19 → SUPCPDRO 01:19 → OBS 04:12
PROVIDERS: ADMIT Internal Medicine; ATTEND Nurse Practitioner
DX: I11.0 Hypertensive heart disease with heart failure (principal); I50.43 Acute on chronic combined systolic (congestive) and diastolic (congestive) heart failure; I48.0 Paroxysmal atrial fibrillation; N39.0 Urinary tract infection, site not specified; B95.2 Enterococcus as the cause of diseases classified elsewhere; I25.10 Atherosclerotic heart disease of native coronary artery without angina pectoris; E03.9 Hypothyroidism, unspecified; H35.30 Unspecified macular degeneration; E78.5 Hyperlipidemia, unspecified; K21.9 Gastro-esophageal reflux disease without esophagitis; Z79.01 Long term (current) use of anticoagulants; Z79.2 Long term (current) use of antibiotics; Z85.3 Personal history of malignant neoplasm of breast; Z92.3 Personal history of irradiation; Z91.81 History of falling
CPT/HCPCS: 36415; 71020; 71275; 80048; 81001; 83735; 83880; 84484; 85025; 85379; 87077; 87086; 87181; 93005; 93306; 94761; 96374; 99284; A9270; G0378; Q9967; 99285

== ENCOUNTER 2017-12-24 08:46 | Outpatient (CLI) | payer MEDICARE, OTHER ==
[2017-12-24 09:05] LABS: CALCIUM 9.2 mg/dL (8.5-10.3); CREATININE 1.1 mg/dL (0.4-1.0)
== END 2017-12-24 08:47 | disposition home or self-care (01) ==
LOC: LAB 08:46
PROVIDERS: ATTEND Internal Medicine Cardiovascular Disease
DX: I50.9 Heart failure, unspecified (principal)
CPT/HCPCS: 36415; 80048

== ENCOUNTER 2018-01-05 08:05 | Outpatient (CLI) | payer MEDICARE, OTHER ==
[2018-01-05 09:44] LABS: BILIRUBIN,URINE NEGATIVE (NEGATIVE); GLUCOSE, URINE (UA) NEGATIVE (NEGATIVE); KETONES,URINE (UA) NEGATIVE (NEGATIVE); LEUKOCYTE ESTERASE, URINE MODERATE (NEGATIVE); NITRITE,URINE POSITIVE (NEGATIVE); OCCULT BLOOD,URINE SMALL (NEGATIVE); PROTEIN,URINE NEGATIVE (NEGATIVE); UROBILINOGEN,URINE 0.2 (NORMAL) E.U./dL (NORMAL)
[2018-01-05 09:45] LABS: CLARITY,URINE HAZY (CLEAR)
[2018-01-05 09:56] LABS: BACTERIA,URINE Moderate /HPF (None Seen); RBC,URINE 0-5 /HPF (0-5); SQUAMOUS EPITHELIAL CELL,UR RARE Squamous (<= Few); WBC CLUMPS,URINE PRESENT
== END 2018-01-05 08:06 | disposition home or self-care (01) ==
LOC: LAB 08:05
PROVIDERS: ATTEND Internal Medicine
DX: Z87.440 Personal history of urinary (tract) infections (principal)
CPT/HCPCS: 81001; 81003; 87086

== ENCOUNTER 2018-01-16 15:14 | Outpatient (CLI) | payer MEDICARE, OTHER ==
[2018-01-16 15:39] LABS: CALCIUM 9.5 mg/dL (8.5-10.3)
== END 2018-01-16 15:15 | disposition home or self-care (01) ==
LOC: LAB 15:14
PROVIDERS: ATTEND Internal Medicine Cardiovascular Disease
DX: I10 Essential (primary) hypertension (principal)
CPT/HCPCS: 36415; 80048

== ENCOUNTER 2018-01-21 15:49 | Outpatient (CLI) | payer MEDICARE, OTHER | END 2018-01-21 15:50 | disposition home or self-care (01) | LOC: LAB.R 15:49 | PROVIDERS: ATTEND Internal Medicine | DX: R07.9 Chest pain, unspecified (principal) | CPT/HCPCS: 84484 ==

== ENCOUNTER 2018-03-23 12:32 | Outpatient (CLI) | payer MEDICARE, OTHER ==
--- NOTE | 2018-03-24 20:05 | Mammography Report ---
DIGITAL SCREENING MAMMOGRAM: 03/23/2018 INDICATION: An 83-year-old nulliparous patient with personal history of left breast cancer, status post lumpectomy and radiation therapy for her screening. TECHNIQUE: Routine CC and MLO projections were obtained of the breasts. COMPARISON: 03/2017, 01/2016, 01/2015, 08/2013, 08/2012, 07/2011, 05/2010 FINDINGS: The breasts again demonstrate heterogeneously dense fibroglandular parenchyma bilaterally. Postoperative and post-treatment changes in the left breast are stable. Coarse and punctate, typically benign calcifications are present. No suspicious masses, clustered microcalcifications, or regions of architectural distortion are identified. IMPRESSION: BENIGN FINDINGS. RECOMMENDATION: Routine annual screening unless otherwise clinically indicated. BIRADS CATEGORY - 2 BENIGN FINDINGS. STANDARD QUALIFYING STATEMENTS: 1. This examination was reviewed with the aid of Computer-Aided Detection (CAD). 2. A negative or benign imaging report should not delay biopsy if clinically suspicious findings are present. Consider surgical consultation if warranted. More than 5% of cancers are not identified by imaging. 3. Dense breasts may obscure an underlying neoplasm. TD: 03/24/2018 20:05
== END 2018-03-23 12:33 | disposition home or self-care (01) ==
LOC: DI 12:32
PROVIDERS: ATTEND Internal Medicine
DX: Z12.31 Encounter for screening mammogram for malignant neoplasm of breast (principal); Z85.3 Personal history of malignant neoplasm of breast
CPT/HCPCS: 77067

== ENCOUNTER 2018-03-23 12:55 | Outpatient (CLI) | payer MEDICARE, OTHER ==
[2018-03-23 15:19] LABS: KETONES,URINE (UA) NEGATIVE (NEGATIVE); LEUKOCYTE ESTERASE, URINE SMALL (NEGATIVE); NITRITE,URINE POSITIVE (NEGATIVE); OCCULT BLOOD,URINE NEGATIVE (NEGATIVE); PROTEIN,URINE 100 mg/dL (NEGATIVE)
[2018-03-23 15:25] LABS: BILIRUBIN,URINE NEGATIVE (NEGATIVE); CLARITY,URINE HAZY (CLEAR); ICTOTEST,URINE NEGATIVE
[2018-03-23 15:26] LABS: BACTERIA,URINE Many /HPF (None Seen); RBC,URINE None Seen /HPF (0-5); SQUAMOUS EPITHELIAL CELL,UR NONE SEEN (<= Few)
== END 2018-03-23 12:56 | disposition home or self-care (01) ==
LOC: LAB 12:55
PROVIDERS: ATTEND Internal Medicine
DX: Z87.440 Personal history of urinary (tract) infections (principal); N30.20 Other chronic cystitis without hematuria
CPT/HCPCS: 81001; 81003; 87086

== ENCOUNTER 2018-08-24 17:11 | Emergency (ER) | payer MEDICARE, OTHER ==
--- NOTE | 2018-08-24 18:37 | ED Physician Documentation ---
PD HPI FOCAL NEURO - Stated complaint Stated Complaint: SENT BY DOC/POSS TIA - Chief complaint Chief Complaint: Neuro - History obtained from History obtained from: Patient - History of Present Illness Timing - onset: How many days ago (3 days of having intermittent episodes of expressive aphasia lasting 5-10 minutes. Associated symptom of headache generalized for the past 1-2 weeks without injury.) Timing - duration: Minutes Timing - details: Abrupt onset, Now resolved, Intermittant Severity of deficit: Mild (expresive aphasia without noted focal weakness.) Weakness: No: Face, Arm, Leg Numbness: No: Face, Arm, Leg Associated symptoms: Headache (for 1-2 weeks). No: Nausea / vomiting, Fall, Head injury, Chest pain Contributing factors: positive: Atrial fibrillation (in the past, currently in regular rhythm.). negative: Anticoagulated, Vascular dz Baseline status: positive: A&OX3, ambulatory, indep Similar symptoms before: Has not had sx before Recently seen: Clinic (went to PMD office and referred to ER.) Review of Systems Constitutional: denies: Fever Nose: denies: Rhinorrhea / runny nose, Congestion Throat: denies: Sore throat Cardiac: denies: Chest pain / pressure, Palpitations Respiratory: denies: Dyspnea, Cough GI: denies: Abdominal Pain, Nausea, Vomiting : denies: Dysuria Skin: denies: Rash, Lesions PD PAST MEDICAL HISTORY - Past Medical History Past Medical History: Yes Cardiovascular: Atrial fibrillation Respiratory: None Neuro: None Endocrine/Autoimmune: None, HyPOthyroidism GI: None : None HEENT: Macular degeneration Psych: None Musculoskeletal: Osteoarthritis - Past Surgical History Past Surgical History: Yes /[employer] 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: Other Cardiovascular: Cardiac catheterization HEENT: Cataracts - Present Medications Home Medications: Ambulatory Orders Medication Instructions Recorded Confirmed Acetaminophen 650 mg PO Q4H PRN 10/11/17 10/11/17 Cholecalciferol [Vitamin D3] unit PO 10/11/17 Dabigatran Etexilate Mesylate 150 mg PO BID 10/11/17 10/11/17 [Pradaxa] Furosemide [Lasix] 40 mg PO DAILY 10/11/17 10/11/17 Lactobacillus Acidophilus 2 tab PO QPM 10/11/17 10/11/17 [Probiotic Acidophilus] Levothyroxine Sodium [Synthroid] 112 mcg PO QDAC 10/11/17 10/11/17 Multivitamin [Theragran] 1 each PO DAILY 10/11/17 10/11/17 Oxybutynin Chloride [Ditropan Xl] 10 mg PO DAILY 10/11/17 10/11/17 Potassium Chloride [Micro-K] 10 meq PO 0800 10/11/17 10/11/17 Pravastatin [Pravachol] 40 mg PO QPM 10/11/17 10/11/17 Ubidecarenone/Vit E Acetate [Co 1 cap PO DAILY 10/11/17 10/11/17 Q-10 100 mg Softgel] Dabigatran [Pradaxa] 75 mg PO BID capsule 10/12/17 Levothyroxine [Synthroid] 112 mcg PO QDAC tablet 10/12/17 Nitrofurantoin [Macrobid] 100 mg PO BID #13 capsule 10/12/17 Pravastatin [Pravachol] 40 mg PO QPM tablet 10/12/17 Sotalol [Betapace] 40 mg PO 1200 #30 tablet 10/12/17 - Allergies Allergies/Adverse Reactions: Allergies Allergy/AdvReac Type Severity Reaction Status Date / Time ciprofloxacin [From Cipro] Allergy Unknown Verified 08/24/18 17:19 ciprofloxacin HCl * Allergy Unknown Verified 08/24/18 17:19 [From Cipro] - Social History Does the pt smoke?: No Smoking Status: Never smoker Does the pt drink ETOH?: No Does the pt have substance abuse?: No - Immunizations Immunizations are current?: Yes PD ED PE NORMAL - Vitals Vital signs reviewed: Yes - General General: Alert and oriented X 3, No acute distress, Well developed/nourished - HEENT HEENT: Atraumatic, PERRL, EOMI, Pharynx benign - Neck Neck: Supple, no meningeal sign, No adenopathy - Cardiac Cardiac: RRR, No murmur - Respiratory Respiratory: Clear bilaterally - Abdomen Abdomen: Soft, Non tender - Derm Derm: Normal color, Warm and dry - Extremities Extremities: No deformity, No tenderness to palpate, Normal ROM s pain - Neuro Neuro: Alert and oriented X 3, 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, No motor deficit, No sensory deficit, Normal speech NIHSS - Level of Consciousness Level of consciousness: (0) Alert, Keenly responsive LOC Questions: (0) Answers both Q's correct LOC Commands: (0) Performs both correctly - Gaze Best Gaze: (0) Normal - Visual Visual: (0) No loss - Facial Palsy Facial Palsy: (0) Normal, symmetrical movement - Motor Arms (both separate) Motor Arm (right): (0) No drift Motor Arm (left): (0) No drift - Motor Legs (both separate) Motor Leg (right): (0) No drift Motor Leg (left): (0) No drift - Limb Ataxia Limb Ataxia: (0) Absent - Sensory Sensory: (0) Normal - Best Language Best Language: (0) No aphasia - Dysarthria Dysarthria: (0) Normal - Extinction and Inattention (formally neg Extinction and inattention: (0) No abnormality - Total Score/Results Total Score/Result: 0 Results - Vitals Vitals: Vital Signs - 24 hr 08/24/18 08/24/18 08/24/18 17:15 17:59 18:29 Temperature 36.6 C Heart Rate 65 55 L 56 L Respiratory 16 16 20 Rate Blood Pressure 147/71 H 145/42 H 132/85 H O2 Saturation 96 97 98 08/24/18 08/24/18 08/24/18 19:00 19:40 20:00 Temperature Heart Rate 55 L 58 L 60 Respiratory 18 18 16 Rate Blood Pressure 147/45 H 123/53 L 163/54 H O2 Saturation 98 96 96 08/24/18 08/24/18 20:30 21:37 Temperature 36.6 C Heart Rate 58 L 72 Respiratory 16 15 Rate Blood Pressure 161/58 H O2 Saturation 97 96 Oxygen O2 Source Room air - Labs Labs: Laboratory Tests 08/24/18 17:24 POC Whole Bld Glucose 139 H PD MEDICAL DECISION MAKING - ED course Complexity details: considered differential (The patient was referred from the primary care office for evaluation of TIA or mild strokesymptoms over the past few days. Our CT scanner was down and so we would not be able to do any appropriate workup. The patient is in sinus rhythm with normal vitals and currently has a normal neuro exam. I therefore did not do much testing here and defer it to the facility will transfer her to. The patient is without any symptoms here at this time and the family prefers to drive her to [facility]. They are offered ambulance and the patient and family both stated they would rather drive her. I talked with the hospitalist at [facility] ([facility] in [facility] first but they did not have facility for her) and the hospitalist there directed that we have the patient go to the ER for initial scans and evaluation and then subsequent admission. I talked with the ER doctor who accepts transfer), d/w patient - Sepsis Event Vital Signs: Vital Signs - 24 hr 08/24/18 08/24/18 08/24/18 17:15 17:59 18:29 Temperature 36.6 C Heart Rate 65 55 L 56 L Respiratory 16 16 20 Rate Blood Pressure 147/71 H 145/42 H 132/85 H O2 Saturation 96 97 98 08/24/18 08/24/18 08/24/18 19:00 19:40 20:00 Temperature Heart Rate 55 L 58 L 60 Respiratory 18 18 16 Rate Blood Pressure 147/45 H 123/53 L 163/54 H O2 Saturation 98 96 96 08/24/18 08/24/18 20:30 21:37 Temperature 36.6 C Heart Rate 58 L 72 Respiratory 16 15 Rate Blood Pressure 161/58 H O2 Saturation 97 96 Oxygen O2 Source Room air Departure - Departure Disposition: 02 Transfer Acute Care Hosp Clinical Impression: Expressive aphasia, TIA (transient ischemic attack) Condition: Stable Record reviewed to determine appropriate education?: Yes Discharge Date/Time: 08/24/18 21:38
[2018-08-24 21:38] VITALS: BP 161/58
== END 2018-08-24 21:38 | disposition short-term general hospital (02) ==
LOC: ED 17:11
DX: R47.01 Aphasia (principal); G45.9 Transient cerebral ischemic attack, unspecified; Z79.01 Long term (current) use of anticoagulants; I48.91 Unspecified atrial fibrillation
CPT/HCPCS: 93005; 99284; 99285

== ENCOUNTER → 2018-09-08 | Outpatient (CLI) | payer MEDICARE, OTHER ==
[2018-09-08 08:56] LABS: CHOL/HDL RATIO 3.2 (<4.4); CHOLESTEROL 181 mg/dL; HDL CHOLESTEROL 56 mg/dL; LDL CHOLESTEROL,CALCULATED 110 mg/dL; VLDL CHOLESTEROL 15 mg/dL
== END ==
LOC: LAB.R 08:00
PROVIDERS: ATTEND Internal Medicine
DX: E78.5 Hyperlipidemia, unspecified (principal)
CPT/HCPCS: 80061; 83721

== ENCOUNTER 2018-09-13 12:34 | Outpatient (CLI) | payer MEDICARE, OTHER ==
[2018-09-13 12:52] LABS: BILIRUBIN,URINE NEGATIVE (NEGATIVE); GLUCOSE, URINE (UA) NEGATIVE (NEGATIVE); KETONES,URINE (UA) NEGATIVE (NEGATIVE); OCCULT BLOOD,URINE TRACE-LYSE (NEGATIVE)
[2018-09-13 12:54] LABS: CLARITY,URINE SL. CLOUDY (CLEAR)
[2018-09-13 13:00] LABS: BACTERIA,URINE Few /HPF (None Seen); SQUAMOUS EPITHELIAL CELL,UR RARE Squamous (<= Few); WBC CLUMPS,URINE PRESENT
== END 2018-09-13 12:35 | disposition home or self-care (01) ==
LOC: LAB 12:34
PROVIDERS: ATTEND Internal Medicine
DX: N30.20 Other chronic cystitis without hematuria (principal); Z87.440 Personal history of urinary (tract) infections
CPT/HCPCS: 81001; 81003; 87086

== ENCOUNTER 2018-09-17 15:48 | Outpatient (CLI) | payer MEDICARE, OTHER ==
--- NOTE | 2018-09-17 17:05 | CT Report ---
Reason: SUBDURAL HEMATOMA Procedure Date: 09/17/2018 Accession Number: [id number] / [id number] Procedure: CT - Head W/O CPT Code: FULL RESULT: EXAM: CT HEAD EXAM DATE: 09/17/2018 04:25 PM. CLINICAL HISTORY: Follow-up subdural hematoma. New onset of light and sound sensitivity today. COMPARISON: CT HEAD WO CONTRAST 08/25/2018 10:17 AM. TECHNIQUE: Multiaxial CT images were obtained from the foramen magnum to the vertex. Reformats: Sagittal and coronal. IV contrast: None. In accordance with CT protocol optimization, one or more of the following dose reduction techniques were utilized for this exam: automated exposure control, adjustment of mA and/or KV based on patient size, or use of iterative reconstructive technique. FINDINGS: Parenchyma: No intraparenchymal hemorrhage. No evidence of mass, midline shift, or CT findings of acute infarction. Torres-white differentiation is distinct. Diffuse chronic microangiopathic white matter changes are evident. Extraaxial Spaces: Almost complete interval resolution of the small right frontal subdural hematoma, barely visible as slight thickening, 1.5 mm. No mass effect on the subjacent brain. Decreasing caliber and volume of the left holoconvexity subdural hematoma currently measuring 1.2 cm in maximal thickness, previously 1.8 cm. Interval overall decrease in the density of the internal contents of this left subdural hematoma, now uniform mild to moderate. No focal hyperdense contents. Decreasing mass effect on the left cerebral hemisphere. No new extra-axial bleeds. Ventricles: Decreasing effacement of the left lateral ventricle. Decreasing left to right supratentorial midline shift, now 4 mm, previously 8 mm. Ambient quadrigeminal cisterns normal caliber. No intraventricular blood products. No entrapment of the ventricles. Sinuses and orbits: Imaged paranasal sinuses, orbits, and mastoids show no significant abnormality. Bones: No evidence of fracture or calvarial defect. Other: None. IMPRESSION: 1. No hyperacute intracranial abnormality nor bleed. 2. Minimal residual thickened right frontal dural space. 3. Decreasing left holohemispheric subdural hematoma. 4. Decreasing supratentorial midline shift, now mild. RADIA The above findings were discussed with Dr Mejía, Dr by Dr. Mary Dixon at 17:01 hrs on 09/17/18.
== END 2018-09-17 15:49 | disposition home or self-care (01) ==
LOC: DI 15:48
PROVIDERS: ATTEND Internal Medicine
DX: I62.00 Nontraumatic subdural hemorrhage, unspecified (principal)
CPT/HCPCS: 70450

== ENCOUNTER 2018-12-24 09:04 | Outpatient (CLI) | payer MEDICARE, OTHER | END 2018-12-24 09:05 | disposition home or self-care (01) | LOC: RT 09:04 | PROVIDERS: ATTEND Internal Medicine Cardiovascular Disease | DX: I48.91 Unspecified atrial fibrillation (principal); Z79.899 Other long term (current) drug therapy | CPT/HCPCS: 93005 ==

== ENCOUNTER 2018-12-24 09:15 | Outpatient (CLI) | payer MEDICARE, OTHER ==
--- NOTE | 2018-12-24 23:49 | CT Report ---
Reason: SUBDURAL HEMATOMA Procedure Date: 12/24/2018 Accession Number: [id number] / [id number] Procedure: CT - Head W/O CPT Code: FULL RESULT: EXAM: CT HEAD EXAM DATE: 12/24/2018 09:21 AM. CLINICAL HISTORY: Subdural hematoma. COMPARISON: HEAD W/O 09/17/2018 4:25 PM. TECHNIQUE: Multiaxial CT images were obtained from the foramen magnum to the vertex. Reformats: Sagittal and coronal. IV contrast: None. In accordance with CT protocol optimization, one or more of the following dose reduction techniques were utilized for this exam: automated exposure control, adjustment of mA and/or KV based on patient size, or use of iterative reconstructive technique. FINDINGS: Parenchyma: No intraparenchymal hemorrhage. No evidence of mass, midline shift or CT findings of acute infarction. Torres-white differentiation is distinct. Diffuse mild chronic microangiopathic white matter changes are evident. Extraaxial Spaces: Normal for age. No subdural or epidural collections identified. Ventricles: The ventricles and cortical sulci are moderately enlarged, consistent with age-related tissue loss. Sinuses: Imaged paranasal sinuses, orbits, and mastoids show no significant abnormality. Bones: No evidence of fracture or calvarial defect. Other: None. IMPRESSION: 1. Resolved previous subdural hematoma. 2. Mild to moderate senescent changes without evidence of acute intracranial abnormality. RADIA
== END 2018-12-24 09:16 | disposition home or self-care (01) ==
LOC: DI 09:15
PROVIDERS: ATTEND Internal Medicine
DX: I62.00 Nontraumatic subdural hemorrhage, unspecified (principal); I10 Essential (primary) hypertension; I48.91 Unspecified atrial fibrillation
CPT/HCPCS: 36415; 70450; 80048; 93005

== ENCOUNTER 2018-12-24 09:55 | Outpatient (CLI) | payer MEDICARE, OTHER ==
[2018-12-24 11:08] LABS: CALCIUM 9.1 mg/dL (8.5-10.3)
== END 2018-12-24 09:56 | disposition home or self-care (01) ==
LOC: LAB 09:55
PROVIDERS: ATTEND Internal Medicine Cardiovascular Disease
DX: I10 Essential (primary) hypertension (principal)
CPT/HCPCS: 36415; 80048

== ENCOUNTER 2019-01-17 18:24 | Outpatient (CLI) | payer MEDICARE, OTHER | END 2019-01-17 18:25 | disposition critical access hospital (66) | LOC: EMS 18:24 | PROVIDERS: ATTEND Surgery | DX: R51 Headache (principal); M54.2 Cervicalgia; W18.39XA Other fall on same level, initial encounter; Y93.01 Activity, walking, marching and hiking; Y92.008 Other place in unspecified non-institutional (private) residence as the place of occurrence of the external cause | CPT/HCPCS: A0425; A0429 ==

== ENCOUNTER 2019-01-17 18:33 | Emergency (ER) | payer MEDICARE, OTHER ==
--- NOTE | 2019-01-17 20:29 | CT Report ---
Reason: fell and struck back of head Procedure Date: 01/17/2019 Accession Number: [id number] / [id number] Procedure: CT - HEAD WO CPT Code: FULL RESULT: EXAM: CT HEAD EXAM DATE: 01/17/2019 08:01 PM. CLINICAL HISTORY: Fell and struck back of head. COMPARISON: HEAD W/O 12/24/2018 9:[address] HEAD WO CONTRAST 08/25/2018 10:17 AM HEAD W/O 09/17/2018 4:25 PM. TECHNIQUE: Multiaxial CT images were obtained from the foramen magnum to the vertex. Reformats: Sagittal and coronal. IV contrast: None. In accordance with CT protocol optimization, one or more of the following dose reduction techniques were utilized for this exam: automated exposure control, adjustment of mA and/or KV based on patient size, or use of iterative reconstructive technique. FINDINGS: Parenchyma: No intraparenchymal hemorrhage. No evidence of mass, midline shift or CT findings of acute territorial infarction. Torres-white differentiation is distinct. Deep white matter low attenuation likely reflects chronic micro-angiopathic ischemic change. Mild global volume loss as before. Extraaxial Spaces: No subdural or epidural collections identified. Ventricles: Stable ventricular dilatation. Sinuses: Mucosal thickening of the maxillary sinuses. Bones: No evidence of acute fracture or calvarial defect. Other: None. IMPRESSION: No acute intracranial abnormalities. RADIA
[2019-01-17 20:33] VITALS: BP 153/70
--- NOTE | 2019-01-17 20:39 | ED Physician Documentation ---
PD HPI HEAD INJURY - Stated complaint Stated Complaint: FALL - Chief complaint Chief Complaint: Trauma Hd/Nk - History obtained from History obtained from: Patient - History of Present Illness Mechanism of head injury: Fell (she has poor balance and uses walker; was walking short distance without the walker and lost balance, fell backward and struck head on carpeted floor. No LOC, vomiting nor onfusion.) Where head injury occurred: Home Timing - onset: How many hours ago (1), Today Location of injury: Back Quality of pain: No: Pain, Throbbing, Aching Associated symptoms: No: LOC, AMS, Nausea / vomiting Recently seen: Not recently seen (1) Review of Systems Constitutional: denies: Fever Nose: denies: Rhinorrhea / runny nose, Congestion Throat: denies: Sore throat Respiratory: denies: Cough GI: denies: Nausea, Vomiting, Diarrhea Neurologic: reports: Head injury. 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 Cardiovascular: Cardiac catheterization HEENT: Cataracts - Present Medications Home Medications: Ambulatory Orders Medication Instructions Recorded Confirmed Acetaminophen 650 mg PO Q4H PRN 10/11/17 10/11/17 Cholecalciferol [Vitamin D3] unit PO 10/11/17 Dabigatran Etexilate Mesylate 150 mg PO BID 10/11/17 10/11/17 [Pradaxa] Furosemide [Lasix] 40 mg PO DAILY 10/11/17 10/11/17 Lactobacillus Acidophilus 2 tab PO QPM 10/11/17 10/11/17 [Probiotic Acidophilus] Levothyroxine Sodium [Synthroid] 112 mcg PO QDAC 10/11/17 10/11/17 Multivitamin [Theragran] 1 each PO DAILY 10/11/17 10/11/17 Oxybutynin Chloride [Ditropan Xl] 10 mg PO DAILY 10/11/17 10/11/17 Potassium Chloride [Micro-K] 10 meq PO 0800 10/11/17 10/11/17 Pravastatin [Pravachol] 40 mg PO QPM 10/11/17 10/11/17 Ubidecarenone/Vit E Acetate [Co 1 cap PO DAILY 10/11/17 10/11/17 Q-10 100 mg Softgel] Dabigatran [Pradaxa] 75 mg PO BID capsule 10/12/17 Levothyroxine [Synthroid] 112 mcg PO QDAC tablet 10/12/17 Nitrofurantoin [Macrobid] 100 mg PO BID #13 capsule 10/12/17 Pravastatin [Pravachol] 40 mg PO QPM tablet 10/12/17 Sotalol [Betapace] 40 mg PO 1200 #30 tablet 10/12/17 - Allergies Allergies/Adverse Reactions: Allergies Allergy/AdvReac Type Severity Reaction Status Date / Time ciprofloxacin [From Cipro] Allergy Unknown Verified 08/24/18 17:19 ciprofloxacin HCl * Allergy Unknown Verified 08/24/18 17:19 [From Cipro] - Social History Does the pt smoke?: No Smoking Status: Never smoker Does the pt drink ETOH?: No Does the pt have substance abuse?: No - Immunizations Immunizations are current?: Yes PD ED PE NORMAL - Vitals Vital signs reviewed: Yes - General General: Alert and oriented X 3, No acute distress, Well developed/nourished - HEENT HEENT: PERRL, Ears normal, Moist mucous membranes, Pharynx benign - Neck Neck: Supple, no meningeal sign, No adenopathy - Cardiac Cardiac: RRR, No murmur - Respiratory Respiratory: Clear bilaterally - Abdomen Abdomen: Soft - Back Back: No spinal TTP - Derm Derm: Normal color, Warm and dry - Neuro Neuro: Alert and oriented X 3, No motor deficit, No sensory deficit, Normal speech Eye Opening: Spontaneous Motor: Obeys Commands Verbal: Oriented GCS Score: 15 - Psych Psych: Normal mood Results - Vitals Vitals: Oxygen O2 Source Room air PD MEDICAL DECISION MAKING - ED course Complexity details: reviewed results (head CT without bleed/acute findings. ), considered differential (was not using walker, lost balance, and fell backward, striking head on carpeted floor. No LOC nor general headache. Main concern for them is that she had a brain bleed several years ago and are concerned that she hit head hard. ), d/w patient, d/w family (son) Departure - Departure Disposition: 01 Home, Self Care Clinical Impression: Accidental fall Qualifiers: Encounter type: initial encounter Qualified Code(s): W19.XXXA - Unspecified fall, initial encounter Head contusion Qualifiers: Encounter type: initial encounter Contusion of head detail: scalp Qualified Code(s): S00.03XA - Contusion of scalp, initial encounter Condition: Stable Record reviewed to determine appropriate education?: Yes Instructions: ED Head Injury Closed Follow-Up: Edu Mejía MD [Primary Care Provider] - Comments: Your CT scan is normal. No bleeding. Tylenol if needed for headaches. Discharge Date/Time: 01/17/19 20:42
== END 2019-01-17 20:42 | disposition home or self-care (01) ==
LOC: EDUNIT# → ED 18:33
DX: S00.03XA Contusion of scalp, initial encounter (principal); W18.30XA Fall on same level, unspecified, initial encounter; Y93.01 Activity, walking, marching and hiking; Y92.009 Unspecified place in unspecified non-institutional (private) residence as the place of occurrence of the external cause; E03.9 Hypothyroidism, unspecified
CPT/HCPCS: 70450; 99283

== ENCOUNTER 2019-04-01 09:35 | Outpatient (CLI) | payer MEDICARE, OTHER ==
[2019-04-01 10:17] LABS: BASOPHILS # (AUTO) 0.1 10^3/uL (0.0-0.1); BASOPHILS % (AUTO) 1.1 %; EOSINOPHILS # (AUTO) 0.8 10^3/uL (0.0-0.7); HGB - HEMOGLOBIN 12.3 g/dL (12.0-16.0); LYMPHOCYTES # (AUTO) 1.3 10^3/uL (1.5-3.5); LYMPHOCYTES % (AUTO) 14.6 %; MEAN CORPUSCULAR HEMOGLOBIN 31.6 pg (27.0-31.0); MEAN CORPUSCULAR HGB CONC 34.1 g/dL (32.0-36.0); MEAN CORPUSCULAR VOLUME 92.6 fL (81.0-99.0); MEAN PLATELET VOLUME 8.4 fL (7.9-10.8); MONOCYTES % (AUTO) 11.8 %; NEUTROPHILS # (AUTO) 5.6 10^3/uL (1.5-6.6); NEUTROPHILS % (AUTO) 63.5 %; PLT - PLATELET COUNT 176 10^3/uL (130-450); RED CELL DISTRIBUTION WIDTH 13.3 % (12.0-15.0); WHITE BLOOD COUNT 8.8 x10^3/uL (4.8-10.8)
[2019-04-01 10:41] LABS: ALBUMIN 3.7 g/dL (3.2-5.5); ALBUMIN/GLOBULIN RATIO 1.4 (1.0-2.2); CALCIUM 9.2 mg/dL (8.5-10.3); TOTAL PROTEIN 6.3 g/dL (6.7-8.2)
[2019-04-01 10:56] LABS: THYROID STIMULATING HORMONE 1.78 uIU/mL (0.34-5.60)
[2019-04-01 10:58] LABS: FREE T4 (FREE THYROXINE) 1.5 ng/dL (0.58-1.64)
[2019-04-01 11:01] LABS: FERRITIN 82.8 ng/mL (11.0-306.8)
== END 2019-04-01 09:36 | disposition home or self-care (01) ==
LOC: LAB 09:35
PROVIDERS: ATTEND Internal Medicine Cardiovascular Disease
DX: R06.09 Other forms of dyspnea (principal)
CPT/HCPCS: 36415; 80053; 82728; 83880; 84439; 84443; 85025

== ENCOUNTER 2019-04-05 13:01 | Outpatient (CLI) | payer MEDICARE, OTHER ==
--- NOTE | 2019-04-05 15:46 | XRAY Report ---
Reason: MARAVILLA Procedure Date: 04/05/2019 Accession Number: [id number] / [id number] Procedure: XR - Chest 2 View X-Ray CPT Code: 08167 FULL RESULT: EXAM: CHEST RADIOGRAPHY EXAM DATE: 04/05/2019 01:23 PM. CLINICAL HISTORY: Dyspnea on exertion COMPARISON: CHEST 2 VIEW PA/LAT 10/11/2017 2:10 AM. TECHNIQUE: 2 views. FINDINGS: Lungs/Pleura: Interval decrease of airway thickening and interstitial opacity. Lung volumes appear symmetric and within normal limits. Negative for pleural effusion. There is no new airspace disease or developing consolidation. Mediastinum: Heart size is upper normal. Trachea is midline. Other: There are surgical clips overlying the left axilla, unchanged. IMPRESSION: 1. Interval decrease of interstitial opacity compared with 2017. Consistent with resolved or decreased airways inflammation or edema. RADIA
== END 2019-04-05 13:02 | disposition home or self-care (01) ==
LOC: DI 13:01
PROVIDERS: ATTEND Internal Medicine Cardiovascular Disease
DX: R06.00 Dyspnea, unspecified (principal)
CPT/HCPCS: 71046

== ENCOUNTER 2019-04-15 10:54 | Outpatient (CLI) | payer MEDICARE, OTHER ==
--- NOTE | 2019-04-15 15:41 | XRAY Report ---
Reason: MARAVILLA,AFIB Procedure Date: 04/15/2019 Accession Number: [id number] / [id number] Procedure: XR - Chest 2 View X-Ray CPT Code: 28936 FULL RESULT: EXAM: CHEST RADIOGRAPHY EXAM DATE: 04/15/2019 11:57 AM. CLINICAL HISTORY: Dyspnea on exertion, AFIB. COMPARISON: CHEST 2 VIEW 04/05/2019 1:03 PM. TECHNIQUE: 2 views. FINDINGS: Lungs/Pleura: No focal opacities evident. No significant pleural effusion; trace intrafissural fluid on the lateral radiograph. No pneumothorax. Normal volumes. Mediastinum: Heart size is upper limits of normal for technique. Mediastinal and hilar contours are within normal limits. Other: None. IMPRESSION: Trace intrafissural fluid seen only on the lateral radiograph. No infiltrates. RADIA
== END 2019-04-15 10:55 | disposition home or self-care (01) ==
LOC: DI 10:54
PROVIDERS: ATTEND Internal Medicine Cardiovascular Disease
DX: R06.00 Dyspnea, unspecified (principal); I48.0 Paroxysmal atrial fibrillation; I11.9 Hypertensive heart disease without heart failure
CPT/HCPCS: 71046; 93306

== ENCOUNTER 2019-04-19 08:00 | Outpatient (CLI) | payer MEDICARE, OTHER | END 2019-04-19 23:59 | disposition home or self-care (01) | LOC: LAB.R 08:00 | PROVIDERS: ATTEND Nurse Practitioner | DX: N39.0 Urinary tract infection, site not specified (principal) | CPT/HCPCS: 87086; 87181 ==

== ENCOUNTER 2019-06-14 15:06 | Outpatient (CLI) | payer MEDICARE, OTHER ==
--- NOTE | 2019-06-15 11:41 | XRAY Report ---
Reason: UPPER RESPIRATORY INFECTION Procedure Date: 06/14/2019 Accession Number: [id number] / [id number] Procedure: XR - Chest 2 View X-Ray CPT Code: 97599 FULL RESULT: EXAM: CHEST RADIOGRAPHY EXAM DATE: 06/14/2019 03:19 PM. CLINICAL HISTORY: Upper respiratory infection. COMPARISON: CHEST 2 VIEW 04/15/2019 11:42 AM. TECHNIQUE: 2 views. FINDINGS: Lungs/Pleura: No focal opacities evident. No pleural effusion. No pneumothorax. Mediastinum: There is borderline to mild cardiomegaly, without significant interval changes. Other: Multiple surgical clips in the left lateral chest wall or the lower axilla again noted. IMPRESSION: No significant change of the borderline to mild cardiomegaly. Negative for pneumonia or acute cardiopulmonary process. RADIA
== END 2019-06-14 15:07 | disposition home or self-care (01) ==
LOC: DI 15:06
PROVIDERS: ATTEND Nurse Practitioner
DX: J06.9 Acute upper respiratory infection, unspecified (principal); I51.7 Cardiomegaly
CPT/HCPCS: 71046

== ENCOUNTER 2019-08-16 08:00 | Outpatient (CLI) | payer MEDICARE, OTHER | END 2019-08-16 23:59 | disposition home or self-care (01) | LOC: LAB.R 08:00 | PROVIDERS: ATTEND Family Medicine | DX: N39.0 Urinary tract infection, site not specified (principal) | CPT/HCPCS: 87077; 87086; 87181 ==

== ENCOUNTER 2019-09-03 08:06 | Outpatient (CLI) | payer MEDICARE, OTHER | END 2019-09-03 08:07 | disposition home or self-care (01) | LOC: RT 08:06 | PROVIDERS: ATTEND Internal Medicine Cardiovascular Disease | DX: R06.02 Shortness of breath (principal) | CPT/HCPCS: 93005 ==

== ENCOUNTER 2019-09-17 13:55 | Outpatient (CLI) | payer MEDICARE, OTHER | END 2019-09-17 23:59 | disposition home or self-care (01) | LOC: LAB.R 13:55 | PROVIDERS: ATTEND Nurse Practitioner | DX: N39.0 Urinary tract infection, site not specified (principal) | CPT/HCPCS: 87086 ==

== ENCOUNTER 2019-10-21 08:19 | Outpatient (CLI) | payer MEDICARE, OTHER ==
[2019-10-21 08:45] LABS: BILIRUBIN,URINE NEGATIVE (NEGATIVE); GLUCOSE, URINE (UA) NEGATIVE (NEGATIVE); KETONES,URINE (UA) NEGATIVE (NEGATIVE); LEUKOCYTE ESTERASE, URINE LARGE (NEGATIVE); NITRITE,URINE NEGATIVE (NEGATIVE); OCCULT BLOOD,URINE SMALL (NEGATIVE); PH,URINE 5.5 PH (5.0-7.5); PROTEIN,URINE NEGATIVE (NEGATIVE); UROBILINOGEN,URINE 0.2 (NORMAL) E.U./dL (NORMAL)
[2019-10-21 08:52] LABS: CLARITY,URINE HAZY (CLEAR)
[2019-10-21 08:53] LABS: BACTERIA,URINE Few /HPF (None Seen); RBC,URINE 0-5 /HPF (0-5); SQUAMOUS EPITHELIAL CELL,UR RARE Squamous (<= Few)
== END 2019-10-21 08:20 | disposition home or self-care (01) ==
LOC: LAB 08:19
PROVIDERS: ATTEND Urology
DX: N39.0 Urinary tract infection, site not specified (principal)
CPT/HCPCS: 81001; 87086

== ENCOUNTER 2019-10-29 07:51 | Emergency (ER) | payer MEDICARE, OTHER ==
--- NOTE | 2019-10-29 08:02 | ED Physician Documentation ---
PD HPI DYSPNEA - Stated complaint Stated Complaint: SOA - History obtained from History obtained from: Patient - History of Present Illness Timing - onset: Yesterday Timing - duration: Days (2) Timing - details: Gradual onset, Still present (worse this morning and had trouble overnight, awakening about 2 am with dyspnea.) Inciting event(s): Immobilization/travel, Other (had eaten family meal for Thanksgiving yesterday and a larger meal at restaurant the day prior to that. Started to feel the dyspnea after that, and worse overnight into today. No URI symptoms per se.). No: URI Worsened by: Exertion (just walking around her apt.), Laying flat Associated symptoms: Bilateral edema. No: Fever, Cough, Wheezing, Chest pain / discomfort, Palpitations Similar symptoms before: Has not had sx before Recently seen: Not recently seen Review of Systems Constitutional: reports: Myalgias, Fatigue. denies: Fever, Chills Nose: denies: Rhinorrhea / runny nose, Congestion Throat: denies: Sore throat Cardiac: reports: Chest pain / pressure (just feeling of tightness), Pedal edema. 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 Cardiovascular: Cardiac catheterization HEENT: Cataracts - Present Medications Home Medications: Ambulatory Orders Medication Instructions Recorded Confirmed Acetaminophen 650 mg PO Q4H PRN 10/11/17 10/11/17 Cholecalciferol [Vitamin D3] unit PO 10/11/17 Furosemide [Lasix] 40 mg PO DAILY 10/11/17 10/11/17 Levothyroxine Sodium [Synthroid] 112 mcg PO QDAC 10/11/17 10/11/17 Multivitamin [Theragran] 1 each PO DAILY 10/11/17 10/11/17 Oxybutynin Chloride [Ditropan Xl] 10 mg PO DAILY 10/11/17 10/11/17 Pravastatin [Pravachol] 40 mg PO QPM 10/11/17 10/11/17 Ubidecarenone/Vit E Acet [Co Q-10 1 cap PO DAILY 10/11/17 10/11/17 100 mg Softgel] Nitrofurantoin [Macrobid] 100 mg PO BID #13 capsule 10/12/17 Sotalol [Betapace] 40 mg PO 1200 #30 tablet 10/12/17 Aspirin 10/29/19 Famotidine 10/29/19 Furosemide [Lasix] 20 mg PO DAILY #20 tablet 10/29/19 Irbesartan 150 mg PO 10/29/19 Nitrofurantoin Macrocrystal 50 mg PO 10/29/19 [Macrodantin] - Allergies Allergies/Adverse Reactions: Allergies Allergy/AdvReac Type Severity Reaction Status Date / Time ciprofloxacin [From Cipro] Allergy Unknown Verified 10/29/19 08:05 ciprofloxacin HCl * Allergy Unknown Verified 10/29/19 08:05 [From Cipro] - Social History Does the pt smoke?: No Smoking Status: Never smoker Does the pt drink ETOH?: No Does the pt have substance abuse?: No - Immunizations Immunizations are current?: Yes PD ED PE NORMAL - Vitals Vital signs reviewed: Yes - General General: Alert and oriented X 3, No acute distress, Well developed/nourished - HEENT HEENT: Moist mucous membranes, Pharynx benign - Neck Neck: Supple, no meningeal sign, No adenopathy, No bruit, Other (JVD at 45 degrees, minimal sitting upright. l) - Cardiac Cardiac: RRR, No murmur - Respiratory Respiratory: No: Clear bilaterally (no coarse sounds nor wheezes. Has fine crackles at bases. ) - Abdomen Abdomen: Non tender - Back Back: No CVA TTP - Derm Derm: Normal color, Warm and dry - Extremities Extremities: No deformity, No tenderness to palpate, Normal ROM s pain, Other (no calf tenderness. Does have 1+ edema in both ankles. no edema at upper calves. ) - Neuro Neuro: Alert and oriented X 3, No motor deficit, No sensory deficit Results - Vitals Vitals: Vital Signs - 24 hr 10/29/19 10/29/19 10/29/19 08:00 09:46 09:55 Heart Rate 69 58 L 56 L Respiratory 20 22 22 Rate Blood Pressure 166/53 H 179/68 H 174/88 H O2 Saturation 96 95 94 11/29/19 11/29/19 11/29/19 10:00 11:00 11:24 Heart Rate 64 56 L 53 L Respiratory 23 20 16 Rate Blood Pressure 151/113 H 171/54 H 170/59 H O2 Saturation 94 97 96 Oxygen O2 Source Room air - Labs Labs: Laboratory Tests 10/29/19 10/29/19 10/29/19 08:55 08:55 08:55 WBC 9.7 RBC 3.56 L Hgb 11.0 L Hct 34.2 L MCV 96.1 MCH 30.9 MCHC 32.2 RDW 13.2 Plt Count 177 MPV 10.5 Neut # (Auto) 6.5 Lymph # (Auto) 1.0 L Pitt # (Auto) 1.2 H Eos # (Auto) 0.9 H Baso # (Auto) 0.1 Absolute Nucleated RBC 0.00 Nucleated RBC % 0.0 Sodium 141 Potassium 4.1 Chloride 108 Carbon Dioxide 26 Anion Gap 7.0 BUN 26 H Creatinine 1.2 H Estimated GFR (MDRD) 43 L Glucose 116 H Calcium 8.8 Magnesium 2.2 Total Bilirubin 1.2 H AST 20 ALT 16 Alkaline Phosphatase 51 Troponin I High Sens 13.7 B-Natriuretic Peptide Total Protein 6.6 L Albumin 3.4 Globulin 3.2 Albumin/Globulin Ratio 1.1 Lipase 25 10/29/19 08:55 WBC RBC Hgb Hct MCV MCH MCHC RDW Plt Count MPV Neut # (Auto) Lymph # (Auto) Pitt # (Auto) Eos # (Auto) Baso # (Auto) Absolute Nucleated RBC Nucleated RBC % Sodium Potassium Chloride Carbon Dioxide Anion Gap BUN Creatinine Estimated GFR (MDRD) Glucose Calcium Magnesium Total Bilirubin AST ALT Alkaline Phosphatase Troponin I High Sens B-Natriuretic Peptide 581 H Total Protein Albumin Globulin Albumin/Globulin Ratio Lipase - Rads (name of study) chest xray Radiology: Prelim report reviewed (vascular fullness c/w CHF. ), See rad report PD MEDICAL DECISION MAKING - ED course Complexity details: reviewed results, re-evaluated patient (diuresing well with IV lasix here, and not having wheeze/lung symptoms per se. Her sats are good and is breathing unlabored. I think she is stable to continue diuretics outpatient, she is agreeable. ), considered differential (heavy meals and turkey/gravy type foods, with now dyspnea/orthopnea that would be c/w some CHF. ), d/w patient Departure - Departure Disposition: 01 Home, Self Care Clinical Impression: Mild congestive heart failure Dyspnea Qualifiers: Dyspnea type: shortness of breath Qualified Code(s): R06.02 - Shortness of breath Condition: Stable Record reviewed to determine appropriate education?: Yes Instructions: ED CHF General, ED Dyspnea Shortness of Breath Follow-Up: Narinder Mcnally MD [Primary Care Provider] - Ajit Crews MD [Provider Admit Priv/Credential] - Prescriptions: Furosemide [Lasix] 20 mg PO DAILY #20 tablet Comments: It looks like you have a little fluid overload likely related to the recent diet and salt intake in the foods. At this point I think we can have you improved with using the furosemide (Lasix) daily for the next several days. Low salty foods and not too large of meals, for the next few days. Recheck if not improving well through the day today and in the next day or 2. Return if worsening. No signs of heart attack or other significant causes on your blood test EKG and chest x-ray. Discharge Date/Time: 10/29/19 11:56
[2019-10-29] MEDS ORDERED: FUROSEMIDE 40 MG/4 ML VIAL IVP STA (08:28)
--- NOTE | 2019-10-29 08:56 | XRAY Report ---
Reason: dyspnea/ cough Procedure Date: 10/29/2019 Accession Number: [id number] / [id number] Procedure: XR - Chest 2 View X-Ray CPT Code: 28747 Final Report FULL RESULT: EXAM: CHEST RADIOGRAPHY EXAM DATE: 10/29/2019 08:41 AM. CLINICAL HISTORY: Dyspnea/ cough. COMPARISON: CHEST 2 VIEW 06/14/2019 3:11 PM. TECHNIQUE: 2 views. FINDINGS: Lungs/Pleura: Diffuse interval increased vascular and interstitial prominence and mild hazy opacity at both lung bases. No dense consolidation. Probable very small right pleural effusion. No pneumothorax. Mediastinum: Stable borderline cardiac enlargement. Other: Left axillary/chest wall surgical clips redemonstrated. IMPRESSION: 1. Stable borderline enlarged cardiac enlargement. 2. New diffuse increased vascular and interstitial prominence and mild bibasilar hazy opacity and probable very small right pleural effusion. CHF is a consideration. RADIA
[2019-10-29 09:07] LABS: BASOPHILS # (AUTO) 0.1 10^3/uL (0.0-0.1); BASOPHILS % (AUTO) 0.9 %; EOSINOPHILS # (AUTO) 0.9 10^3/uL (0.0-0.7); EOSINOPHILS % (AUTO) 9.3 %; LYMPHOCYTES % (AUTO) 9.9 %; MEAN CORPUSCULAR HEMOGLOBIN 30.9 pg (27.0-31.0); MEAN CORPUSCULAR HGB CONC 32.2 g/dL (32.0-36.0); MEAN CORPUSCULAR VOLUME 96.1 fL (81.0-99.0); MEAN PLATELET VOLUME 10.5 fL (7.9-10.8); MONOCYTES # (AUTO) 1.2 10^3/uL (0.0-1.0); MONOCYTES % (AUTO) 11.9 %; NEUTROPHILS # (AUTO) 6.5 10^3/uL (1.5-6.6); NEUTROPHILS % (AUTO) 67.2 %; PLT - PLATELET COUNT 177 10^3/uL (130-450); RED BLOOD COUNT 3.56 10^6/uL (4.20-5.40); RED CELL DISTRIBUTION WIDTH 13.2 % (12.0-15.0); WHITE BLOOD COUNT 9.7 x10^3/uL (4.8-10.8)
[2019-10-29 09:22] LABS: ALBUMIN 3.4 g/dL (3.2-5.5); ALBUMIN/GLOBULIN RATIO 1.1 (1.0-2.2); BILIRUBIN,TOTAL 1.2 mg/dL (0.2-1.0); CALCIUM 8.8 mg/dL (8.5-10.3); CREATININE 1.2 mg/dL (0.4-1.0); MAGNESIUM 2.2 mg/dL (1.7-2.8); TOTAL PROTEIN 6.6 g/dL (6.7-8.2)
[2019-10-29] MEDS ORDERED: NITROGLYCERIN SL 0.4 MG TABLET SL STA (09:41)
[2019-10-29 11:29] VITALS: BP 170/59
== END 2019-10-29 11:56 | disposition home or self-care (01) ==
LOC: ED 07:51
DX: I50.9 Heart failure, unspecified (principal); I45.10 Unspecified right bundle-branch block; R00.8 Other abnormalities of heart beat; Z79.82 Long term (current) use of aspirin
CPT/HCPCS: 36415; 71046; 80053; 83690; 83735; 83880; 84484; 85025; 93005; 96374; 99284; A9270

== ENCOUNTER 2019-12-07 11:51 | Outpatient (CLI) | payer MEDICARE, OTHER ==
[2019-12-07 12:50] LABS: CALCIUM 9.5 mg/dL (8.5-10.3); CREATININE 1.3 mg/dL (0.4-1.0)
== END 2019-12-07 11:52 | disposition home or self-care (01) ==
LOC: LAB 11:51
PROVIDERS: ATTEND Internal Medicine Cardiovascular Disease
DX: I51.89 Other ill-defined heart diseases (principal)
CPT/HCPCS: 36415; 80048

== ENCOUNTER 2020-02-02 09:22 | Outpatient (CLI) | payer MEDICARE, OTHER ==
--- NOTE | 2020-02-02 15:37 | Ultrasound Report ---
Reason: RENAL INSUFFICIENCY Procedure Date: 02/02/2020 Accession Number: [id number] / [id number] Procedure: US - Retroperitoneal CPT Code: Final Report FULL RESULT: EXAM: RENAL ULTRASOUND EXAM DATE: 02/02/2020 10:41 AM. CLINICAL HISTORY: Renal insufficiency. COMPARISON: ABDOMEN/PELVIS 07/17/2017 12:16 PM COMPLETE 10/11/2017 1:15 PM. TECHNIQUE: Real-time scanning was performed with static images obtained. FINDINGS: Right Kidney: 9.8 cm. Normal echotexture with no stones, contour-deforming masses, or hydronephrosis. Left Kidney: 11.0 cm. Normal echotexture with no stones, contour-deforming masses, or hydronephrosis. Bladder: Bilateral jets seen. The prevoid bladder volume was 112 cc. The postvoid bladder volume was 52 cc. Other: None. IMPRESSION: No hydronephrosis. RADIA
== END 2020-02-02 09:23 | disposition home or self-care (01) ==
LOC: DI 09:22
PROVIDERS: ATTEND Urology
DX: N28.9 Disorder of kidney and ureter, unspecified (principal)
CPT/HCPCS: 76770

== ENCOUNTER 2020-04-28 07:01 | Outpatient (CLI) | payer MEDICARE, OTHER ==
[2020-04-28 07:31] LABS: ALBUMIN 4.1 g/dL (3.2-5.5); ALBUMIN/GLOBULIN RATIO 1.3 (1.0-2.2); ALKALINE PHOSPHATASE 60 IU/L (42-121); ALT ALANINE AMINOTRANSFERASE 14 IU/L (10-60); AST ASPARTATE AMINOTRANSFERASE 16 IU/L (10-42); BILIRUBIN,TOTAL 0.9 mg/dL (0.2-1.0); BUN - BLOOD UREA NITROGEN 45 mg/dL (6-20); CALCIUM 9.8 mg/dL (8.5-10.3); CARBON DIOXIDE - CO2 27 mmol/L (21-32); CHLORIDE 105 mmol/L (101-111); CHOL/HDL RATIO 2.7 (<4.4); CHOLESTEROL 161 mg/dL; CREATININE 1.6 mg/dL (0.4-1.0); GLUCOSE 109 mg/dL (70-100); HDL CHOLESTEROL 59 mg/dL; LDL CHOLESTEROL,CALCULATED 86 mg/dL; LDL/HDL RATIO 1.5 (<4.4); SODIUM 140 mmol/L (135-145); TOTAL PROTEIN 7.2 g/dL (6.7-8.2); VLDL CHOLESTEROL 16 mg/dL
[2020-04-28 07:44] LABS: BASOPHILS # (AUTO) 0.1 10^3/uL (0.0-0.1); BASOPHILS % (AUTO) 0.9 %; EOSINOPHILS # (AUTO) 0.4 10^3/uL (0.0-0.7); EOSINOPHILS % (AUTO) 5.5 %; LYMPHOCYTES # (AUTO) 1.3 10^3/uL (1.5-3.5); LYMPHOCYTES % (AUTO) 18.6 %; MEAN CORPUSCULAR HEMOGLOBIN 32.5 pg (27.0-31.0); MEAN CORPUSCULAR HGB CONC 33.4 g/dL (32.0-36.0); MEAN CORPUSCULAR VOLUME 97.3 fL (81.0-99.0); MEAN PLATELET VOLUME 11.2 fL (7.9-10.8); MONOCYTES # (AUTO) 0.8 10^3/uL (0.0-1.0); MONOCYTES % (AUTO) 12.1 %; NEUTROPHILS # (AUTO) 4.4 10^3/uL (1.5-6.6); NEUTROPHILS % (AUTO) 62.6 %; PLT - PLATELET COUNT 177 10^3/uL (130-450); RED CELL DISTRIBUTION WIDTH 12.7 % (12.0-15.0)
== END 2020-04-28 07:02 | disposition home or self-care (01) ==
LOC: LAB 07:01
PROVIDERS: ATTEND Family Medicine
DX: E03.9 Hypothyroidism, unspecified (principal); E78.5 Hyperlipidemia, unspecified; I48.91 Unspecified atrial fibrillation; C50.919 Malignant neoplasm of unspecified site of unspecified female breast
CPT/HCPCS: 36415; 80053; 80061; 83721; 84443; 85025

== ENCOUNTER 2020-09-04 09:56 | Outpatient (CLI) | payer MEDICARE, OTHER | END 2020-09-04 09:57 | disposition home or self-care (01) | LOC: LAB 09:56 | PROVIDERS: ATTEND Psychiatry & Neurology Neurology | DX: R41.3 Other amnesia (principal); Z74.09 Other reduced mobility | CPT/HCPCS: 36415; 82607 ==

== ENCOUNTER 2020-11-16 14:05 | Emergency (ER) | payer MEDICARE, OTHER ==
[2020-11-16 14:22] VITALS: BP 127/45
== END 2020-11-16 14:44 | disposition left against medical advice (07) ==
LOC: ED 14:05
DX: Z53.21 Procedure and treatment not carried out due to patient leaving prior to being seen by health care provider (principal)
CPT/HCPCS: 99283

== ENCOUNTER 2021-01-26 15:39 | Outpatient (CLI) | payer MEDICARE, OTHER ==
[2021-01-26 16:15] LABS: BASOPHILS # (AUTO) 0.1 10^3/uL (0.0-0.1); BASOPHILS % (AUTO) 0.7 %; EOSINOPHILS # (AUTO) 0.5 10^3/uL (0.0-0.7); EOSINOPHILS % (AUTO) 7.4 %; HCT - HEMATOCRIT 37.1 % (37.0-47.0); HGB - HEMOGLOBIN 11.9 g/dL (12.0-16.0); LYMPHOCYTES # (AUTO) 1.7 10^3/uL (1.5-3.5); LYMPHOCYTES % (AUTO) 22.9 %; MEAN CORPUSCULAR HEMOGLOBIN 31.1 pg (27.0-31.0); MEAN CORPUSCULAR HGB CONC 32.1 g/dL (32.0-36.0); MEAN CORPUSCULAR VOLUME 96.9 fL (81.0-99.0); MEAN PLATELET VOLUME 11.1 fL (7.9-10.8); MONOCYTES % (AUTO) 13.2 %; NEUTROPHILS % (AUTO) 55.4 %; PLT - PLATELET COUNT 164 10^3/uL (130-450); RED BLOOD COUNT 3.83 10^6/uL (4.20-5.40); RED CELL DISTRIBUTION WIDTH 13.3 % (12.0-15.0); WHITE BLOOD COUNT 7.3 x10^3/uL (4.8-10.8)
[2021-01-26 16:34] LABS: ALBUMIN 3.9 g/dL (3.2-5.5); ALBUMIN/GLOBULIN RATIO 1.4 (1.0-2.2); CALCIUM 9.8 mg/dL (8.5-10.3); CHOL/HDL RATIO 3.1 (<4.4); CHOLESTEROL 165 mg/dL; CREATININE 1.4 mg/dL (0.4-1.0); HDL CHOLESTEROL 53 mg/dL; LDL CHOLESTEROL,CALCULATED 81 mg/dL; LDL/HDL RATIO 1.5 (<4.4); PHOSPHORUS 3.3 mg/dL (2.5-4.6); POTASSIUM 4.6 mmol/L (3.5-5.0); TOTAL PROTEIN 6.6 g/dL (6.7-8.2); TRIGLYCERIDES 154 mg/dL; VLDL CHOLESTEROL 31 mg/dL
[2021-01-26 16:47] LABS: THYROID STIMULATING HORMONE 2.78 uIU/mL (0.34-5.60)
[2021-01-26 20:55] LABS: ESTIMATED AVERAGE GLUCOSE 114 mg/dL (70-100); HEMOGLOBIN A1c% 5.6 % (4.27-6.07)
== END 2021-01-26 15:40 | disposition home or self-care (01) ==
LOC: LAB 15:39
PROVIDERS: ATTEND Internal Medicine Nephrology
DX: I10 Essential (primary) hypertension (principal); I48.92 Unspecified atrial flutter; E53.8 Deficiency of other specified B group vitamins; R73.01 Impaired fasting glucose
CPT/HCPCS: 36415; 80053; 80061; 82043; 82570; 82607; 83036; 83721; 84100; 84443; 85025

== ENCOUNTER 2021-01-29 10:29 | Outpatient (CLI) | payer MEDICARE, OTHER ==
[2021-01-29 11:09] LABS: CREATININE,URINE 104.6 mg/dL; MICROALBUM/CREATININE RATIO,UR 3.8 ug/mg (<30.0); MICROALBUMIN,URINE 0.4 mg/dL (0-300.0)
--- NOTE | 2021-01-29 11:21 | CT Report ---
PROCEDURE: HEAD WO INDICATIONS: MEMORY LOSS TECHNIQUE: Noncontrast 4.5 mm thick angled axial sections acquired from the foramen magnum to the vertex. For r adiation dose reduction, the following was used: automated exposure control, adjustment of mA and/or kV according to patient size. COMPARISON: None. FINDINGS: Image quality: Excellent. CSF spaces: Basal cisterns are patent. No extra-axial fluid collections. Ventricles are normal in size and shape. Brain: Hypoattenuation throughout the periventricular and subcortical white matter both cerebral jameson spheres, indicative of moderate chronic microvascular ischemic change. Global cerebral volume loss. N o acute intracranial hemorrhage. No evidence of vasogenic edema. Torres-white matter differentiation is maintained. Skull and face: Calvarium and visualized facial bones are intact, without suspicious lesions. Sinuses: Visualized sinuses and mastoids are clear. IMPRESSION: Moderate global cerebral volume loss and moderate chronic microvascular ischemic change. Reviewed by: Sergey Xiong MD on 01/29/2021 11:20 AM [facility] Approved by: Sergey Xiong MD on 01/29/2021 11:20 AM PST Station ID: [id number]
== END 2021-01-29 10:30 | disposition home or self-care (01) ==
LOC: DI 10:29
PROVIDERS: ATTEND Internal Medicine
DX: R41.3 Other amnesia (principal); R73.01 Impaired fasting glucose; I12.9 Hypertensive chronic kidney disease with stage 1 through stage 4 chronic kidney disease, or unspecified chronic kidney disease; N18.30 Chronic kidney disease, stage 3 unspecified; I67.82 Cerebral ischemia
CPT/HCPCS: 82043; 82570

== ENCOUNTER 2021-02-06 10:40 | Outpatient (CLI) | payer MEDICARE, OTHER ==
[2021-02-06 11:10] LABS: ALBUMIN 4.3 g/dL (3.2-5.5); CALCIUM 9.8 mg/dL (8.5-10.3); CREATININE 1.4 mg/dL (0.4-1.0); PHOSPHORUS 3.6 mg/dL (2.5-4.6); POTASSIUM 4.5 mmol/L (3.5-5.0)
[2021-02-06 11:11] LABS: BASOPHILS # (AUTO) 0.1 10^3/uL (0.0-0.1); BASOPHILS % (AUTO) 1.2 %; EOSINOPHILS # (AUTO) 0.4 10^3/uL (0.0-0.7); EOSINOPHILS % (AUTO) 5.2 %; HCT - HEMATOCRIT 39.9 % (37.0-47.0); HGB - HEMOGLOBIN 12.9 g/dL (12.0-16.0); LYMPHOCYTES # (AUTO) 1.5 10^3/uL (1.5-3.5); MEAN CORPUSCULAR HEMOGLOBIN 31.3 pg (27.0-31.0); MEAN CORPUSCULAR HGB CONC 32.3 g/dL (32.0-36.0); MEAN CORPUSCULAR VOLUME 96.8 fL (81.0-99.0); MEAN PLATELET VOLUME 10.9 fL (7.9-10.8); MONOCYTES # (AUTO) 1.1 10^3/uL (0.0-1.0); MONOCYTES % (AUTO) 14.8 %; NEUTROPHILS # (AUTO) 4.5 10^3/uL (1.5-6.6); NEUTROPHILS % (AUTO) 58.5 %; PLT - PLATELET COUNT 184 10^3/uL (130-450); RED BLOOD COUNT 4.12 10^6/uL (4.20-5.40); RED CELL DISTRIBUTION WIDTH 13.3 % (12.0-15.0); WHITE BLOOD COUNT 7.7 x10^3/uL (4.8-10.8)
== END 2021-02-06 10:41 | disposition home or self-care (01) ==
LOC: LAB 10:40
PROVIDERS: ATTEND Internal Medicine Nephrology
DX: N18.32 Chronic kidney disease, stage 3b (principal); I48.0 Paroxysmal atrial fibrillation
CPT/HCPCS: 36415; 80069; 85025; 93005

== ENCOUNTER 2021-05-14 13:16 | Outpatient (CLI) | payer MEDICARE, OTHER | END 2021-05-14 13:17 | disposition EMS.NT | LOC: EMS 13:16 | DX: Z04.1 Encounter for examination and observation following transport accident (principal) ==

== ENCOUNTER 2021-05-21 08:37 | Outpatient (CLI) | payer MEDICARE, OTHER ==
--- NOTE | 2021-05-21 17:10 | XRAY Report ---
PROCEDURE: Thoracic Spine 2 View INDICATIONS: THORACIC BACK PX TECHNIQUE: 3 views of the thoracic spine were acquired. COMPARISON: None. FINDINGS: Bones: No fractures or dislocations. No suspicious bony lesions. 12 pairs of ribs are noted, and a ppear intact where visualized. Soft tissues: No paravertebral stripe thickening. IMPRESSION: There is mild convex leftward scoliosis centered at the thoracolumbar junction. Note is made of moder ate degenerative disc disease over the needle and lower thirds of the thoracic spine and mild such de generation more superiorly. No compression fracture or subluxation is associated. Reviewed by: Kai Vila MD on 05/21/2021 5:09 PM PDT Approved by: Kai Vila MD on 05/21/2021 5:09 PM PDT Station ID: [id number]
== END 2021-05-21 08:38 | disposition home or self-care (01) ==
LOC: DI.N 08:37
PROVIDERS: ATTEND Internal Medicine
DX: M51.34 Other intervertebral disc degeneration, thoracic region (principal)

== ENCOUNTER 2021-07-18 14:50 | Outpatient (CLI) | payer MEDICARE, OTHER ==
[2021-07-18 15:00] LABS: BASOPHILS # (AUTO) 0.1 10^3/uL (0.0-0.1); BASOPHILS % (AUTO) 0.8 %; EOSINOPHILS # (AUTO) 0.4 10^3/uL (0.0-0.7); EOSINOPHILS % (AUTO) 4.7 %; HCT - HEMATOCRIT 35.2 % (37.0-47.0); HGB - HEMOGLOBIN 11.8 g/dL (12.0-16.0); LYMPHOCYTES # (AUTO) 1.5 10^3/uL (1.5-3.5); MEAN CORPUSCULAR HEMOGLOBIN 31.9 pg (27.0-31.0); MEAN CORPUSCULAR HGB CONC 33.5 g/dL (32.0-36.0); MEAN CORPUSCULAR VOLUME 95.1 fL (81.0-99.0); MEAN PLATELET VOLUME 10.2 fL (7.9-10.8); MONOCYTES # (AUTO) 1.1 10^3/uL (0.0-1.0); MONOCYTES % (AUTO) 14.2 %; NEUTROPHILS # (AUTO) 4.4 10^3/uL (1.5-6.6); NEUTROPHILS % (AUTO) 59.8 %; PLT - PLATELET COUNT 165 10^3/uL (130-450); RED CELL DISTRIBUTION WIDTH 13.5 % (12.0-15.0); WHITE BLOOD COUNT 7.4 x10^3/uL (4.8-10.8)
[2021-07-18 15:14] LABS: ALBUMIN 3.9 g/dL (3.2-5.5); CALCIUM 9.4 mg/dL (8.5-10.3); CREATININE 1.1 mg/dL (0.4-1.0); POTASSIUM 4.5 mmol/L (3.5-5.0)
== END 2021-07-18 14:51 | disposition home or self-care (01) ==
LOC: LAB 14:50
PROVIDERS: ATTEND Internal Medicine Nephrology
DX: N18.32 Chronic kidney disease, stage 3b (principal)
CPT/HCPCS: 36415; 80069; 85025

== ENCOUNTER 2021-10-03 09:32 | Outpatient (CLI) | payer MEDICARE, OTHER ==
[2021-10-03 10:12] LABS: CALCIUM 9.5 mg/dL (8.5-10.3); CREATININE 1.5 mg/dL (0.4-1.0); POTASSIUM 4.6 mmol/L (3.5-5.0)
== END 2021-10-03 09:33 | disposition home or self-care (01) ==
LOC: LAB 09:32
PROVIDERS: ATTEND Internal Medicine Cardiovascular Disease
DX: R41.3 Other amnesia (principal); Z74.09 Other reduced mobility; I48.19 Other persistent atrial fibrillation
CPT/HCPCS: 36415; 80048; 82607; 93005

== ENCOUNTER 2022-02-08 07:38 | Outpatient (CLI) | payer MEDICARE, OTHER ==
[2022-02-08 08:10] LABS: ALBUMIN 4.1 g/dL (3.2-5.5); ALBUMIN/GLOBULIN RATIO 1.6 (1.0-2.2); ALKALINE PHOSPHATASE 53 IU/L (42-121); ALT ALANINE AMINOTRANSFERASE 14 IU/L (10-60); AST ASPARTATE AMINOTRANSFERASE 18 IU/L (10-42); BILIRUBIN,TOTAL 1.1 mg/dL (0.2-1.0); BUN - BLOOD UREA NITROGEN 23 mg/dL (6-20); CALCIUM 9.4 mg/dL (8.5-10.3); CARBON DIOXIDE - CO2 24 mmol/L (21-32); CHLORIDE 105 mmol/L (101-111); CHOL/HDL RATIO 3.1 (<4.4); CHOLESTEROL 184 mg/dL; CREATININE 1.1 mg/dL (0.4-1.0); GFR - MDRD 47 (>89); GLUCOSE 109 mg/dL (70-100); HDL CHOLESTEROL 59 mg/dL; LDL CHOLESTEROL,CALCULATED 106 mg/dL; LDL/HDL RATIO 1.8 (<4.4); POTASSIUM 4.6 mmol/L (3.5-5.0); SODIUM 138 mmol/L (135-145); TOTAL PROTEIN 6.7 g/dL (6.7-8.2); TRIGLYCERIDES 93 mg/dL; VLDL CHOLESTEROL 19 mg/dL
[2022-02-08 08:22] LABS: THYROID STIMULATING HORMONE 2.11 uIU/mL (0.34-5.60)
[2022-02-08 11:39] LABS: ESTIMATED AVERAGE GLUCOSE 105 mg/dL (70-100); HEMOGLOBIN A1c% 5.3 % (4.27-6.07)
== END 2022-02-08 07:39 | disposition home or self-care (01) ==
LOC: LAB 07:38
PROVIDERS: ATTEND Internal Medicine
DX: I11.0 Hypertensive heart disease with heart failure (principal); I50.30 Unspecified diastolic (congestive) heart failure; E03.9 Hypothyroidism, unspecified; R73.01 Impaired fasting glucose
CPT/HCPCS: 36415; 80053; 80061; 83036; 83721; 84443

== ENCOUNTER 2022-02-21 12:26 | Outpatient (CLI) | payer MEDICARE, OTHER ==
--- NOTE | 2022-02-21 13:38 | DEXA Report ---
PROCEDURE: Dexa Spine and/or Hip INDICATIONS: MENOPAUSAL STATE TECHNIQUE: Dual energy x-ray absorptiometry (DXA) was performed on a damntheradio System. Regions measur ed are the AP Spine, femoral neck, and if needed forearm. Forearm was performed secondary to extensiv e densities on spine. COMPARISON: None. 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 Patients with diagnosis of osteoporosis or osteopenia should have regular bone mineral density assess ment. For those eligible for Medicare, routine testing is allowed once every 2 years. Testing frequ ency can be increased for patients who have rapidly progressing disease or for those who are receivin g medical therapy to restore bone mass. Reviewed by: Rosette Higginbotham MD on 02/21/2022 1:37 PM PDT Approved by: Rosette Higginbotham MD on 02/21/2022 1:37 PM PDT Station ID: [id number]
== END 2022-02-21 12:27 | disposition home or self-care (01) ==
LOC: DI 12:26
PROVIDERS: ATTEND Internal Medicine
DX: M81.0 Age-related osteoporosis without current pathological fracture (principal); Z78.0 Asymptomatic menopausal state

== ENCOUNTER 2022-10-24 08:00 | Emergency (ER) | payer MEDICARE, OTHER ==
--- NOTE | 2022-10-24 09:08 | ED Physician Documentation ---
History of Present Illness - Stated complaint Stated Complaint: LUMP LT BREAST - Chief complaint Chief Complaint: General - History obtained from History obtained from: Patient, Family - History of Present Illness Timing: Yesterday Pain level max: 0 Pain level now: 0 - Additonal information Additional information: Patient is an 87-year-old female brought in by her daughter. The patient has a history of left sided breast cancer 20 to 30 years ago. She states that she noticed a left breast mass last night. Family brought her in today. No fevers. No chills. No redness. No swelling. No skin changes. Nothing makes it better or worse. No pain. 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[address]: Other Cardiovascular: Cardiac catheterization HEENT: Cataracts - Present Medications Home Medications: Ambulatory Orders Medication Instructions Recorded Confirmed Acetaminophen 650 mg PO Q4H PRN 10/11/17 10/11/17 Cholecalciferol [Vitamin D3] unit PO 10/11/17 Furosemide [Lasix] 40 mg PO DAILY 10/11/17 10/11/17 Levothyroxine Sodium [Synthroid] 112 mcg PO QDAC 10/11/17 10/11/17 Multivitamin [Theragran] 1 each PO DAILY 10/11/17 10/11/17 Oxybutynin Chloride [Ditropan Xl] 10 mg PO DAILY 10/11/17 10/11/17 Pravastatin [Pravachol] 40 mg PO QPM 10/11/17 10/11/17 Ubidecarenone/Vit E Acet [Co Q-10 1 cap PO DAILY 10/11/17 10/11/17 100 mg Softgel] Nitrofurantoin [Macrobid] 100 mg PO BID #13 capsule 10/12/17 Sotalol [Betapace] 40 mg PO 1200 #30 tablet 10/12/17 Aspirin 10/29/19 Famotidine 10/29/19 Furosemide [Lasix] 20 mg PO DAILY #20 tablet 10/29/19 Irbesartan 150 mg PO 10/29/19 Nitrofurantoin Macrocrystal 50 mg PO 10/29/19 [Macrodantin] - Allergies Allergies/Adverse Reactions: Allergies Allergy/AdvReac Type Severity Reaction Status Date / Time ciprofloxacin [From Cipro] Allergy Unknown Verified 10/24/22 08:12 ciprofloxacin HCl * Allergy Unknown Verified 10/24/22 08:12 [From Cipro] - Social History Does the pt smoke?: No Smoking Status: Never smoker Does the pt drink ETOH?: No Does the pt have substance abuse?: No - Immunizations Immunizations are current?: Yes PD ED PE NORMAL - Vitals Vital signs reviewed: Yes - General General: Alert and oriented X 3, No acute distress, Well developed/nourished - HEENT HEENT: Moist mucous membranes - Cardiac Cardiac: RRR - Respiratory Respiratory: No respiratory distress, Clear bilaterally - Derm Derm: Warm and dry, Other (Left breast - There is a 2 x 2 centimeter firm nodular mass near the 12:00 area of the left breast. No overlying skin changes. No nipple discharge. No lymphadenopathy) - Neuro Neuro: Alert and oriented X 3 - Psych Psych: Normal mood, Normal affect Results - Vitals Vitals: Vital Signs - 24 hr 10/24/22 10/24/22 08:11 09:33 Temperature 36.6 C 36.6 C Heart Rate 64 49 L Respiratory 14 16 Rate Blood Pressure 143/61 H 157/67 H O2 Saturation 100 96 Oxygen O2 Source Room air - Rads (name of study) Left breast ultrasound Radiology: Final report received, EMP read contemporaneously, See rad report PD MEDICAL DECISION MAKING - ED course Complexity details: reviewed results, re-evaluated patient, considered differential, d/w patient, d/w family ED course: 87-year-old female with a mass to the left breast. History of left-sided breast cancer. Counseled that she would require a mammogram, likely breast MRI and likely biopsy. These cannot be performed here today. She would like an ul trasound today, so this was ordered. This confirms a left-sided breast lump, complex mass with calcifications, positive vascular flow. 2.9 x 1.9 x 2.1 cm. She will follow-up with her doctor for further evaluation of the mass. Patient and family counseled regarding signs and symptoms for which I believe and urgent re-evaluation would be necessary. Patient with good understanding of and agreement to plan and is comfortable going home at this time This document was made in part using voice recognition software. While efforts are made to proofread this document, sound alike and grammatical errors may occur. IMPRESSION: Solid-appearing mass with internal vascularity. Dedicated diagnostic mammogram is recommended for further evaluation. Departure - Departure Disposition: Home, Self Care Clinical Impression: Breast mass, left Qualifiers: Breast mass location: unspecified quadrant Qualified Code(s): N63.20 - Unspecified lump in the left breast, unspecified quadrant Condition: Good Instructions: ED Breast Mass Uncertain Cause Follow-Up: Jigar Villafana MD [Primary Care Provider] - 10/28/22 Comments: Your ultrasound does show a breast mass that is approximately 2.9 x 1.9 x 2.1 cm. This is in the 12:00 area. It appears to be a complex mass with calcifications. Recommend that you have a mammogram performed, possible breast MRI and possible biopsy. Discharge Date/Time: 10/24/22 09:34
[2022-10-24 09:33] VITALS: BP 157/67
--- NOTE | 2022-10-24 09:58 | Ultrasound Report ---
PROCEDURE: Breast Unilateral Limited INDICATIONS: L breast mass TECHNIQUE: Real-time focused scanning was performed of the left breast(s), with image documentation and color Do ppler interrogation. COMPARISON: None. FINDINGS: At the 12:00 position of the left breast, 8 cm from the nipple, there is a solid-appearing heterogene ous mass, with lobulated margins. Internal vascularity can be seen. Cystic components can be seen wit hin this mass. No significant axillary abnormality is seen. IMPRESSION: Solid-appearing mass with internal vascularity. Dedicated diagnostic mammogram is recommended for further evaluation. BIRADS 0 Note: Findings and recommendations discussed by telephone with Dr. Ramsey at 8:54 AM [place] time on 12/24/2021. Reviewed by: Tejas Calderon MD on 10/24/2022 8:56 AM [place] Approved by: Tejas Calderon MD on 10/24/2022 8:56 AM [place] Station ID: [id number]
== END 2022-10-24 09:34 | disposition home or self-care (01) ==
LOC: ED 08:00
DX: N63.20 Unspecified lump in the left breast, unspecified quadrant (principal); Z85.3 Personal history of malignant neoplasm of breast
CPT/HCPCS: 99282; 99284

== ENCOUNTER 2022-10-30 10:45 | Outpatient (CLI) | payer MEDICARE, OTHER ==
--- NOTE | 2022-10-31 10:58 | Mammography Report ---
UNILATERAL LEFT DIGITAL DIAGNOSTIC MAMMOGRAM 3D/2D: 10/30/2022 CLINICAL: Routine screening. Personal history of left breast cancer. Comparison is made to exams dated: 10/24/2022 ultrasound, 03/23/2018 mammogram, and 03/19/2017 mammogr am - [facility]. The left breast is heterogeneously dense, which may obscure small masses (category c / 51-75% glandul ar tissue). There are benign post operative changes in the left breast and axilla. There is a 3.1 cm irregular high density mass with a spiculated margin in the left breast at 12 o'virgie ck posterior depth. This correlates as palpated and with ultrasound findings. No other significant masses or calcifications are seen in the breast. IMPRESSION: HIGHLY SUGGESTIVE OF MALIGNANCY The 3.1 cm irregular high density mass in the left breast is highly suggestive of malignancy. An ult rasound guided biopsy is recommended. Findings and recommendations were discussed with the patient b y the onsite radiologist, Dr. Valentino, at the time of the exam. This exam was interpreted at Station ID: [id number]. NOTE: For mammograms, a report in lay terms will be sent to the patient. Approximately 15% of breast malignancies will not be visualized mammographically. In the management of a palpable breast mass, a negative mammogram must not discourage biopsy of a clinically suspicious lesion. Electronically Signed By: Jeff anderson/armida:10/30/2022 13:23:00 ACR BI-RADS Category 5: Highly suggestive of malignancy [id number] PARENCHYMAL PATTERN: (D) - The breast(s) demonstrate(s) heterogeneously dense fibroglandular addi [place]. BI-RADS CATEGORY: (5) - 5 Biopsy [id number] Immediate follow-up LATERALITY: (L)
== END 2022-10-30 10:46 | disposition home or self-care (01) ==
LOC: DI 10:45
PROVIDERS: ATTEND Internal Medicine
DX: N63.25 Unspecified lump in the left breast, overlapping quadrants (principal)

== ENCOUNTER 2022-12-15 15:40 | Emergency (ER) | payer MEDICARE, OTHER ==
[2022-12-15 15:59] LABS: EOSINOPHILS % (AUTO) 12.7 %; HCT - HEMATOCRIT 40.1 % (37.0-47.0); HGB - HEMOGLOBIN 13.1 g/dL (12.0-16.0); LYMPHOCYTES % (AUTO) 16.1 %; MEAN CORPUSCULAR HEMOGLOBIN 31.8 pg (27.0-31.0); MEAN CORPUSCULAR HGB CONC 32.7 g/dL (32.0-36.0); MEAN CORPUSCULAR VOLUME 97.3 fL (81.0-99.0); MEAN PLATELET VOLUME 10.4 fL (7.9-10.8); MONOCYTES % (AUTO) 13.3 %; NEUTROPHILS % (AUTO) 56.5 %; PLT - PLATELET COUNT 197 10^3/uL (130-450); RED BLOOD COUNT 4.12 10^6/uL (4.20-5.40); RED CELL DISTRIBUTION WIDTH 13.2 % (12.0-15.0); WHITE BLOOD COUNT 9.8 x10^3/uL (4.8-10.8)
[2022-12-15 16:01] LABS: ABNORMAL LYMPHS % (MANUAL) 0 %
--- NOTE | 2022-12-15 16:04 | ED Physician Documentation ---
PD HPI CHEST PAIN - Stated complaint Stated Complaint: CHEST PX - Chief complaint Chief Complaint: Cardiac - History obtained from History obtained from: Patient, Family - History of Present Illness Quality: Sharp Location: Right chest Radiation: No: Jaw, Neck, Back, Abdominal, Left upper extremity, Right upper extremity Associated symptoms: No: Shortness of air, Diaphoresis, Nausea, Vomiting, Feeling faint / dizzy, General Weakness, Palpitations - Additional information Additional information: Patient is an 87-year-old female who presents to the emergency department with chest pain. This started at about 3:00 today. She states she was watching a football game. She states that the pain is sharp, on the right side of the chest. Worse with palpation and movement. No change with breathing. Denies any coughing. No nausea or vomiting. Nonradiating. She states it has been constant. Has not taken anything for the pain. No difficulty breathing. No nausea, vomiting, lightheadedness, dizziness, sweating. No cardiac history per patient. No history of stents or bypasses. She does have a recent diagnosis of breast cancer, she states that she is scheduled to start an oral pill for this. She does not know what it is but has not started it yet. 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 Cardiovascular: Cardiac catheterization HEENT: Cataracts - Present Medications Home Medications: Ambulatory Orders Medication Instructions Recorded Confirmed Acetaminophen 650 mg PO Q4H PRN 10/11/17 10/11/17 Cholecalciferol [Vitamin D3] unit PO 10/11/17 Furosemide [Lasix] 40 mg PO DAILY 10/11/17 10/11/17 Levothyroxine Sodium [Synthroid] 112 mcg PO QDAC 10/11/17 10/11/17 Multivitamin [Theragran] 1 each PO DAILY 10/11/17 10/11/17 Oxybutynin Chloride [Ditropan Xl] 10 mg PO DAILY 10/11/17 10/11/17 Pravastatin [Pravachol] 40 mg PO QPM 10/11/17 10/11/17 Ubidecarenone/Vit E Acet [Co Q-10 1 cap PO DAILY 10/11/17 10/11/17 100 mg Softgel] Nitrofurantoin [Macrobid] 100 mg PO BID #13 capsule 10/12/17 Sotalol [Betapace] 40 mg PO 1200 #30 tablet 10/12/17 Aspirin 10/29/19 Famotidine 10/29/19 Furosemide [Lasix] 20 mg PO DAILY #20 tablet 10/29/19 Irbesartan 150 mg PO 10/29/19 Nitrofurantoin Macrocrystal 50 mg PO 10/29/19 [Macrodantin] - Allergies Allergies/Adverse Reactions: Allergies Allergy/AdvReac Type Severity Reaction Status Date / Time ciprofloxacin [From Cipro] Allergy Unknown Verified 12/15/22 15:42 ciprofloxacin HCl * Allergy Unknown Verified 12/15/22 15:42 [From Cipro] - Social History Does the pt smoke?: No Smoking Status: Never smoker Does the pt drink ETOH?: No Does the pt have substance abuse?: No - Immunizations Immunizations are current?: Yes PD ED PE NORMAL - Vitals Vital signs reviewed: Yes - General General: Alert and oriented X 3, No acute distress, Well developed/nourished - HEENT HEENT: PERRL, Moist mucous membranes - Neck Neck: Supple, no meningeal sign, No JVD, No bruit - Cardiac Cardiac: RRR, No murmur, Strong equal pulses, Other (Tender to palpation across the anterior chest wall, reproduces her pain. Mainly over the ribs 6 through 8. Mostly over the costochondral cartilage.) - Respiratory Respiratory: No respiratory distress, Clear bilaterally - Abdomen Abdomen: Soft, Non tender, Non distended - Back Back: No CVA TTP, No spinal TTP - Derm Derm: Warm and dry, No rash - Extremities Extremities: No edema, No calf tenderness / cord - Neuro Neuro: Alert and oriented X 3 - Psych Psych: Normal mood, Normal affect Results - Vitals Vitals: Vital Signs - 24 hr 12/15/22 12/15/22 15:42 17:07 Temperature 37.3 C Heart Rate 66 52 L Respiratory 18 17 Rate Blood Pressure 172/63 H 172/51 H O2 Saturation 97 95 Oxygen O2 Source Room air - EKG (time done) 1551 Rate: Rate (enter#) (68) Rhythm: NSR [place]: Normal Intervals: RBBB Compare to prior EKG: Unchanged from prior EKG - Labs Labs: Laboratory Tests 12/15/22 12/15/22 12/15/22 15:50 15:50 15:50 WBC 9.8 RBC 4.12 L Hgb 13.1 Hct 40.1 MCV 97.3 MCH 31.8 H MCHC 32.7 RDW 13.2 Plt Count 197 MPV 10.4 Neut # (Auto) Not Reportable Lymph # (Auto) Not Reportable [place] # (Auto) Not Reportable Eos # (Auto) Not Reportable Baso # (Auto) Not Reportable Absolute Nucleated RBC Not Reportable Total Counted 100 Band Neuts % (Manual) 1 Abnorm Lymph % (Manual) 0 Nucleated RBC % Not Reportable Neutrophils # (Manual) 6.1 Lymphocytes # (Manual) 1.1 L Monocytes # (Manual) 1.3 H Eosinophils # (Manual) 1.4 H Basophils # (Manual) 0.0 Differential Comment MANUAL DIFFERENTIAL Platelet Estimate NORMAL (130-450,000) Platelet Morphology NORMAL APPEARANCE RBC Morph Micro Appear NORMAL APPEARANCE Sodium 139 Potassium 3.7 Chloride 102 Carbon Dioxide 28 Anion Gap 9.0 BUN 26 H Creatinine 1.1 H Estimated GFR (MDRD) 47 L Glucose 139 H Calcium 9.4 Total Bilirubin 1.0 AST 18 ALT 12 Alkaline Phosphatase 67 Troponin I High Sens 13.4 Total Protein 7.1 Albumin 3.8 Globulin 3.3 Albumin/Globulin Ratio 1.2 Lipase 27 12/15/22 17:48 WBC RBC Hgb Hct MCV MCH MCHC RDW Plt Count MPV Neut # (Auto) Lymph # (Auto) [place] # (Auto) Eos # (Auto) Baso # (Auto) Absolute Nucleated RBC Total Counted Band Neuts % (Manual) Abnorm Lymph % (Manual) Nucleated RBC % Neutrophils # (Manual) Lymphocytes # (Manual) Monocytes # (Manual) Eosinophils # (Manual) Basophils # (Manual) Differential Comment Platelet Estimate Platelet Morphology RBC Morph Micro Appear Sodium Potassium Chloride Carbon Dioxide Anion Gap BUN Creatinine Estimated GFR (MDRD) Glucose Calcium Total Bilirubin AST ALT Alkaline Phosphatase Troponin I High Sens 12.6 Total Protein Albumin Globulin Albumin/Globulin Ratio Lipase - Rads (name of study) cxr Radiology: Final report received, See rad report PD Medical Decision Making - ED course Complexity details: reviewed results, re-evaluated patient, considered differential (No ST elevation PA, no aortic dissection, no PE, no tension pneu mothorax, no aortic aneurysm), d/w patient Reviewed Lab Results: No acute findings on CBC, or abdominal panel. Negative high sensitive troponin x2. Chest x-ray shows cardiomegaly with interstitial prominence. EKG does not show any acute abnormalities. Drug Therapy Requiring Monitoring for Toxicity: Symptoms completely resolved with IV Toradol. Patient also received a dose of IV morphine, but this did not change her symptoms ED course: Patient with anterior wall chest pain, reproducible with palpation. No acute findings on laboratory testing, EKG etc. She picked up Lasix this morning but has not yet taken it for her CHF. Symptoms not consistent with pulmonary embolus. Likely costochondritis versus pleurisy. We will have her follow-up with her doctor for further care. Patient and family counseled regarding signs and symptoms for which I believe and urgent re-evaluation would be necessary. Patient with good understanding of and agreement to plan and is comfortable going home at this time This document was made in part using voice recognition software. While efforts are made to proofread this document, sound alike and grammatical errors may occur. No respiratory distress. No hypoxia. Departure - Departure Disposition: 01 Home, Self Care Clinical Impression: Chest wall pain Condition: Good Instructions: ED Chest Pain Atypical Unkn Cause, ED Chest Pain Costochondritis Follow-Up: Jigar Villafana MD [Primary Care Provider] - Within 1 week Comments: Please follow-up with your doctor for further care. Please return if you worsen. You are heart test are negative today. Your chest x-ray is consistent with congestive heart failure, you should start your Lasix when you return home. You can use Motrin or Tylenol as needed for pain.
[2022-12-15 16:16] LABS: ALBUMIN 3.8 g/dL (3.2-5.5); ALBUMIN/GLOBULIN RATIO 1.2 (1.0-2.2); CALCIUM 9.4 mg/dL (8.5-10.3); CREATININE 1.1 mg/dL (0.4-1.0); POTASSIUM 3.7 mmol/L (3.5-5.0); TOTAL PROTEIN 7.1 g/dL (6.7-8.2)
[2022-12-15 16:21] LABS: BAND NEUTROPHILS % (MANUAL) 1 %; EOSINOPHILS # (MANUAL) 1.4 10^3/uL (0-0.7); LYMPHOCYTES # (MANUAL) 1.1 10^3/uL (1.5-3.5); LYMPHOCYTES % (MANUAL) 11 %; MONOCYTES # (MANUAL) 1.3 10^3/uL (0.0-1.0); NEUTROPHILS # (MANUAL) 6.1 10^3/uL (1.5-6.6); PLATELET ESTIMATE, MANUAL NORMAL (130-450,000) (NORMAL); PLATELET MORPHOLOGY NORMAL APPEARANCE (NORMAL); RBC MORPHOLOGY (MULTIPLE) NORMAL APPEARANCE (NORMAL)
[2022-12-15 16:22] LABS: DIFFERENTIAL COMMENT MANUAL DIFFERENTIAL
--- NOTE | 2022-12-15 16:31 | XRAY Report ---
PROCEDURE: Chest 1 View X-Ray INDICATIONS: CHEST PAIN TECHNIQUE: One view of the chest was acquired. COMPARISON: None. FINDINGS: Surgical changes and devices: Left axillary clips are seen. Lungs and pleura: No large pleural effusions or pneumothorax. Generalized interstitial prominence ca n be seen. Mediastinum: Mediastinal contours appear normal. Heart size is moderately enlarged. Bones and chest wall: No suspicious bony lesions. Age-appropriate degenerative changes are seen. O verlying soft tissues appear unremarkable. IMPRESSION: Cardiomegaly and interstitial prominence. CHF is suspected. Left axillary clips noted. Reviewed by: Tejas Calderon MD on 12/15/2022 3:30 PM [facility] Approved by: Tejas Calderon MD on 12/15/2022 3:30 PM [facility] Station ID: [id number]
[2022-12-15] MEDS ORDERED: MORPHINE 2 MG/ML CARPUJECT IVP STA (16:43)
[2022-12-15] MEDS ORDERED: KETOROLAC 30 MG/ML VIAL IVP STA (17:17)
[2022-12-15 18:56] VITALS: BP 162/68
== END 2022-12-15 18:56 | disposition home or self-care (01) ==
LOC: ED 15:40
DX: R07.89 Other chest pain (principal); I50.9 Heart failure, unspecified
CPT/HCPCS: 36415; 80053; 83690; 84484; 85025; 93005; 96374; 96375; 99285

== ENCOUNTER 2023-05-19 08:15 | Outpatient (CLI) | payer MEDICARE, OTHER ==
[2023-05-19 08:42] LABS: BASOPHILS # (AUTO) 0.1 10^3/uL (0.0-0.1); BASOPHILS % (AUTO) 0.8 %; EOSINOPHILS # (AUTO) 0.5 10^3/uL (0.0-0.7); EOSINOPHILS % (AUTO) 6.2 %; HCT - HEMATOCRIT 39.1 % (37.0-47.0); LYMPHOCYTES # (AUTO) 1.3 10^3/uL (1.5-3.5); MEAN CORPUSCULAR HEMOGLOBIN 31.6 pg (27.0-31.0); MEAN CORPUSCULAR HGB CONC 33.2 g/dL (32.0-36.0); MEAN CORPUSCULAR VOLUME 95.1 fL (81.0-99.0); MONOCYTES # (AUTO) 1.1 10^3/uL (0.0-1.0); MONOCYTES % (AUTO) 14.1 %; NEUTROPHILS # (AUTO) 4.6 10^3/uL (1.5-6.6); NEUTROPHILS % (AUTO) 61.6 %; PLT - PLATELET COUNT 167 10^3/uL (130-450); RED BLOOD COUNT 4.11 10^6/uL (4.20-5.40); WHITE BLOOD COUNT 7.5 x10^3/uL (4.8-10.8)
[2023-05-19 08:58] LABS: ALBUMIN 3.7 g/dL (3.2-5.5); ALBUMIN/GLOBULIN RATIO 1.2 (1.0-2.2); ALKALINE PHOSPHATASE 68 IU/L (42-121); ALT ALANINE AMINOTRANSFERASE 13 IU/L (10-60); AST ASPARTATE AMINOTRANSFERASE 17 IU/L (10-42); BUN - BLOOD UREA NITROGEN 31 mg/dL (6-20); CALCIUM 9.2 mg/dL (8.5-10.3); CARBON DIOXIDE - CO2 27 mmol/L (21-32); CHLORIDE 107 mmol/L (101-111); CHOL/HDL RATIO 2.8 (<4.4); CHOLESTEROL 188 mg/dL; GFR - MDRD 52 (>89); GLUCOSE 93 mg/dL (70-100); HDL CHOLESTEROL 67 mg/dL; LDL CHOLESTEROL,CALCULATED 107 mg/dL; LDL/HDL RATIO 1.6 (<4.4); POTASSIUM 4.4 mmol/L (3.5-5.0); SODIUM 140 mmol/L (135-145); TOTAL PROTEIN 6.7 g/dL (6.7-8.2); TRIGLYCERIDES 70 mg/dL; VLDL CHOLESTEROL 14 mg/dL
[2023-05-19 09:09] LABS: THYROID STIMULATING HORMONE 3.88 uIU/mL (0.34-5.60)
[2023-05-19 09:38] LABS: ESTIMATED AVERAGE GLUCOSE 108 mg/dL (70-100); HEMOGLOBIN A1c% 5.4 % (4.27-6.07)
== END 2023-05-19 08:16 | disposition home or self-care (01) ==
LOC: LAB 08:15
PROVIDERS: ATTEND Internal Medicine
DX: C50.912 Malignant neoplasm of unspecified site of left female breast (principal); Z17.0 Estrogen receptor positive status [ER+]; E78.5 Hyperlipidemia, unspecified; E53.8 Deficiency of other specified B group vitamins; R73.01 Impaired fasting glucose; E03.9 Hypothyroidism, unspecified
CPT/HCPCS: 36415; 80053; 80061; 82607; 83036; 83721; 84443; 85025

== ENCOUNTER 2023-11-23 11:10 | Emergency (ER) | payer MEDICARE, OTHER ==
[2023-11-23 11:30] VITALS: BP 165/95; O2SAT 97
[2023-11-23 11:31] LABS: BILIRUBIN,URINE NEGATIVE (NEGATIVE); GLUCOSE, URINE (UA) NEGATIVE (NEGATIVE); KETONES,URINE (UA) NEGATIVE (NEGATIVE); LEUKOCYTE ESTERASE, URINE SMALL (NEGATIVE); NITRITE,URINE NEGATIVE (NEGATIVE); OCCULT BLOOD,URINE MODERATE (NEGATIVE); PROTEIN,URINE 30 mg/dL (NEGATIVE); UROBILINOGEN,URINE 0.2 (NORMAL) E.U./dL (NORMAL)
[2023-11-23 11:32] LABS: CLARITY,URINE SL. CLOUDY (CLEAR)
[2023-11-23 11:38] LABS: BACTERIA,URINE None Seen /HPF (None Seen); SQUAMOUS EPITHELIAL CELL,UR RARE Squamous (<= Few); WBC,URINE >25 /HPF (0-5)
[2023-11-23] MEDS ORDERED: cephALEXin 250 MG CAPSULE PO STA (12:38)
--- NOTE | 2023-11-23 12:38 | ED Physician Documentation ---
History of Present Illness - Stated complaint Stated Complaint: - Chief complaint Chief Complaint: UTI - Additonal information Additional information: Patient 88-year-old female presenting to the emergency department with dysuria. Woke at approximately 5 AM with frequent urination and lower pelvic discomfort. Denies vaginal discharge. Denies fever, chills, flank pain, nausea or vomiting. Reports a history of frequent urinary tract infections. 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 Cardiovascular: Cardiac catheterization HEENT: Cataracts - Present Medications Home Medications: Ambulatory Orders Medication Instructions Recorded Confirmed Cholecalciferol [Vitamin D3] 5,000 unit PO DAILY 10/11/17 09/09/23 Levothyroxine Sodium [Synthroid] 112 mcg PO QDAC 10/11/17 09/09/23 Multivitamin [Theragran] 1 each PO DAILY 10/11/17 09/09/23 Pravastatin [Pravachol] 40 mg PO QPM 10/11/17 09/09/23 Ubidecarenone/Vit E Acet [Co Q-10 1 cap PO DAILY 10/11/17 09/09/23 100 mg Softgel] Sotalol [Betapace] 40 mg PO 1200 #30 tablet 10/12/17 09/09/23 Furosemide [Lasix] 20 mg PO DAILY #20 tablet 10/29/19 09/09/23 Irbesartan 150 mg PO DAILY 10/29/19 09/09/23 cephALEXin [Keflex] 500 mg PO Q6H #20 cap 11/23/23 - Allergies Allergies/Adverse Reactions: Allergies Allergy/AdvReac Type Severity Reaction Status Date / Time ciprofloxacin [From Cipro] Allergy Unknown Verified 01/21/23 15:53 ciprofloxacin HCl * Allergy Unknown Verified 01/21/23 15:53 [From Cipro] - Social History Does the pt smoke?: No Smoking Status: Never smoker Does the pt drink ETOH?: No Does the pt have substance abuse?: No - Immunizations Immunizations are current?: Yes PD ED PE NORMAL - General General: Alert and oriented X 3, No acute distress, Well developed/nourished - HEENT HEENT: Atraumatic, PERRL, EOMI, Ears normal, Moist mucous membranes, Pharynx benign, Dentition benign - Neck Neck: Supple, no meningeal sign, No bony TTP, No adenopathy, Thyroid normal, No JVD - Cardiac Cardiac: RRR - Respiratory Respiratory: No respiratory distress - Abdomen Abdomen: Normal bowel sounds - Female Female : Deferred - Rectal Rectal: Deferred - Back Back: No CVA TTP - Derm Derm: Normal color - Extremities Extremities: No deformity - Neuro Neuro: Alert and oriented X 3, 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 CLOUDY Urine pH 6.0 Ur Specific [place] 1.020 Urine Protein 30 H Urine Glucose (UA) NEGATIVE Urine Ketones NEGATIVE Urine Occult Blood MODERATE H Urine Nitrite NEGATIVE Urine Bilirubin NEGATIVE Urine Urobilinogen 0.2 (NORMAL) Ur Leukocyte Esterase SMALL H Urine RBC 11-25 H Urine WBC >25 H Ur Squamous Epith Cells RARE Squamous Urine Bacteria None Seen Ur Microscopic Review INDICATED Urine Culture Comments INDICATED PD Medical Decision Making - ED course Complexity details: reviewed results, d/w patient ED course: Patient presents with dysuria x 1 day. Afebrile, hemodynamically stable. No CVA tenderness. Abdominal exam benign. Nothing in her clinical presentation to suggest a more significant systemic illness. Previous urine cultures reviewed. Patient frequently positive for Klebsiella urinary tract infection. The only notable antibiotic resistance is to aminopenicillins. Previous susceptibilities to cephalosporins are noted and will initiate course of Keflex here in the emergency department. Will provide prescription for same. Will encourage careful follow-up with primary care. Urine culture pending at this time. Departure - Departure Disposition: 01 Home, Self Care Clinical Impression: Urinary tract infection Qualifiers: Urinary tract infection type: acute cystitis Hematuria presence: without hematuria Qualified Code(s): N30.00 - Acute cystitis without hematuria Instructions: ED UTI Cystitis Female Prescriptions: cephALEXin [Keflex] 500 mg PO Q6H #20 cap Comments: Thank you for allowing us to care for you today [facility]. Today in the emergency department you were diagnosed with a urinary tract infection. You received your first dose of antibiotic here in the emergency department. I will send your urine for culture and further testing. If there is any concern for antibiotic resistance we will contact you directly in the next few days. A prescription for an ongoing course of antibiotics was sent to [facility]. Please fill this is soon as possible. Please be aware that pharmacies are likely to close early this afternoon for the holiday. If it anytime you develop new or worsening symptoms please not hesitate to return.
== END 2023-11-23 12:52 | disposition home or self-care (01) ==
LOC: ED 11:10
DX: N30.00 Acute cystitis without hematuria (principal)
CPT/HCPCS: 81001; 87086; 99283; A9270; 81003

== ENCOUNTER 2024-03-07 10:09 | Emergency (ER) | payer MEDICARE, OTHER ==
[2024-03-07 11:12] LABS: BILIRUBIN,URINE NEGATIVE (NEGATIVE); GLUCOSE, URINE (UA) NEGATIVE (NEGATIVE); KETONES,URINE (UA) NEGATIVE (NEGATIVE); LEUKOCYTE ESTERASE, URINE SMALL (NEGATIVE); NITRITE,URINE NEGATIVE (NEGATIVE); OCCULT BLOOD,URINE NEGATIVE (NEGATIVE); PROTEIN,URINE TRACE mg/dL (NEGATIVE); UROBILINOGEN,URINE 0.2 (NORMAL) E.U./dL (NORMAL)
[2024-03-07 11:13] LABS: CLARITY,URINE SL. CLOUDY (CLEAR)
[2024-03-07 11:14] LABS: BACTERIA,URINE Few /HPF (None Seen); CASTS, URINE 3-5 Hyaline Casts /LPF; MUCUS,URINE Few Strands; RBC,URINE 0-5 /HPF (0-5); SQUAMOUS EPITHELIAL CELL,UR MOD Squamous (<= Few)
[2024-03-07 11:23] LABS: BASOPHILS # (AUTO) 0.1 10^3/uL (0.0-0.1); BASOPHILS % (AUTO) 0.7 %; EOSINOPHILS # (AUTO) 0.5 10^3/uL (0.0-0.7); EOSINOPHILS % (AUTO) 6.1 %; HCT - HEMATOCRIT 38.6 % (37.0-47.0); HGB - HEMOGLOBIN 12.4 g/dL (12.0-16.0); LYMPHOCYTES % (AUTO) 12.8 %; MEAN CORPUSCULAR HEMOGLOBIN 31.2 pg (27.0-31.0); MEAN CORPUSCULAR HGB CONC 32.1 g/dL (32.0-36.0); MEAN CORPUSCULAR VOLUME 97.2 fL (81.0-99.0); MEAN PLATELET VOLUME 10.1 fL (7.9-10.8); MONOCYTES % (AUTO) 13.5 %; NEUTROPHILS % (AUTO) 66.8 %; PLT - PLATELET COUNT 154 10^3/uL (130-450); RED BLOOD COUNT 3.97 10^6/uL (4.20-5.40); RED CELL DISTRIBUTION WIDTH 12.9 % (12.0-15.0); WHITE BLOOD COUNT 7.5 x10^3/uL (4.8-10.8)
--- NOTE | 2024-03-07 11:36 | ED Physician Documentation ---
History of Present Illness - Stated complaint Stated Complaint: KIRTI MCKEON BK PX - Chief complaint Chief Complaint: Back Pain - History obtained from History obtained from: Patient - History of Present Illness Pain level max: 10 Pain level now: 0 - Additonal information Additional information: Patient is an 89-year-old female who presents to the emergency department complaining of right-sided flank and right lower abdominal pain intermittently for the past 2 weeks. She states that last night the pain was a "10 out of 10". She states that she was alone and did not know what to do so went back to bed. She states that this morning she did not have pain, but decided to come and get checked out today. No fevers. No chills. No cough. No congestion. No nausea, vomiting, diarrhea. No dysuria or hematuria. No numbness or tingling. No loss of bowel or bladder control. Nothing makes it better or worse. 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 Cardiovascular: Cardiac catheterization HEENT: Cataracts - Present Medications Home Medications: Ambulatory Orders Medication Instructions Recorded Confirmed Cholecalciferol [Vitamin D3] 5,000 unit PO DAILY 10/11/17 03/07/24 Levothyroxine Sodium [Synthroid] 112 mcg PO QDAC 10/11/17 03/07/24 Multivitamin [Theragran] 1 each PO DAILY 10/11/17 03/07/24 Pravastatin [Pravachol] 40 mg PO QPM 10/11/17 03/07/24 Ubidecarenone/Vit E Acet [Co Q-10 1 cap PO DAILY 10/11/17 03/07/24 100 mg Softgel] Sotalol [Betapace] 40 mg PO 1200 #30 tablet 10/12/17 03/07/24 Furosemide [Lasix] 20 mg PO DAILY #20 tablet 10/29/19 03/07/24 Irbesartan 150 mg PO DAILY 10/29/19 03/07/24 cephALEXin [Keflex] 500 mg PO Q6H #20 cap 11/23/23 03/07/24 Amlodipine Besylate [Norvasc] 5 mg PO DAILY 03/07/24 03/07/24 Anastrozole 1 tab PO DAILY 03/07/24 03/07/24 Aspirin [[place] Aspirin] 1 tab PO DAILY 03/07/24 03/07/24 Escitalopram [Lexapro] 1 tab PO DAILY 03/07/24 03/07/24 Tolterodine [Detrol LA] 1 cap PO DAILY 03/07/24 03/07/24 Torsemide 5 mg PO DAILY 03/07/24 03/07/24 - Allergies Allergies/Adverse Reactions: Allergies Allergy/AdvReac Type Severity Reaction Status Date / Time ciprofloxacin [From Cipro] Allergy Unknown Verified 01/21/23 15:53 ciprofloxacin HCl * Allergy Unknown Verified 03/07/24 10:34 [From Cipro] - Social History Does the pt smoke?: No Smoking Status: Never smoker Does the pt drink ETOH?: No Does the pt have substance abuse?: No - Immunizations Immunizations are current?: Yes PD ED PE NORMAL - Vitals Vital signs reviewed: Yes - General General: Alert and oriented X 3, No acute distress - HEENT HEENT: Moist mucous membranes - Neck Neck: Supple, no meningeal sign - Cardiac Cardiac: RRR, Strong equal pulses - Respiratory Respiratory: No respiratory distress, Clear bilaterally - Abdomen Abdomen: Soft, Non tender, Non distended - Back Back: No CVA TTP, No spinal TTP - Derm Derm: Warm and dry - Extremities Extremities: No edema, No calf tenderness / cord - Neuro Neuro: Alert and oriented X 3 - Psych Psych: Normal mood, Normal affect Results - Vitals Vitals: Vital Signs - 24 hr 03/07/24 03/07/24 03/07/24 10:23 12:34 13:19 Temperature 36.6 C Heart Rate 47 L 52 L 50 L Respiratory 14 14 14 Rate Blood Pressure 155/59 H 134/82 H 136/84 H O2 Saturation 96 98 99 Oxygen O2 Source Room air - EKG (time done) 1149 EKG releavant findings:: EKG personally interpreted by author of this note. Relevant findings are: Rate: Rate (enter#) (49) Rhythm: Sinus bradycardia [place]: Normal Intervals: Normal CA, RBBB - Labs Labs: Laboratory Tests 03/07/24 03/07/24 03/07/24 11:05 11:19 11:19 WBC 7.5 RBC 3.97 L Hgb 12.4 Hct 38.6 MCV 97.2 MCH 31.2 H MCHC 32.1 RDW 12.9 Plt Count 154 MPV 10.1 Neut # (Auto) 5.0 Lymph # (Auto) 1.0 L [place] # (Auto) 1.0 Eos # (Auto) 0.5 Baso # (Auto) 0.1 Absolute Nucleated RBC 0.00 Nucleated RBC % 0.0 Sodium 137 Potassium 4.5 Chloride 106 Carbon Dioxide 24 Anion Gap 7.0 BUN 23 H Creatinine 1.0 Estimated GFR (MDRD) 52 L Glucose 97 Calcium 9.6 Total Bilirubin 1.6 H AST 16 ALT 10 Alkaline Phosphatase 53 Total Protein 6.4 Albumin 3.9 Globulin 2.5 Albumin/Globulin Ratio 1.6 Lipase 13 Urine Color YELLOW Urine Clarity SL. CLOUDY Urine pH 6.0 Ur Specific [place] 1.020 Urine Protein TRACE Urine Glucose (UA) NEGATIVE Urine Ketones NEGATIVE Urine Occult Blood NEGATIVE Urine Nitrite NEGATIVE Urine Bilirubin NEGATIVE Urine Urobilinogen 0.2 (NORMAL) Ur Leukocyte Esterase SMALL H Urine RBC 0-5 Urine WBC 6-10 H Ur Squamous Epith Cells MOD Squamous H Urine Bacteria Few Urine Casts 3-5 Hyaline Casts Urine Mucus Few Strands Ur Microscopic Review INDICATED Urine Culture Comments NOT INDICATED - Rads (name of study) CT abd/pelvis Relevant Findings:: Final report received, See rad report PD Medical Decision Making - ED course Complexity details: reviewed results, re-evaluated patient, considered differential, d/w patient ED course: No acute findings on laboratory testing. Urinalysis appears mostly contaminated. Patient is on cephalexin nightly for UTI prevention. CT does not show any acute abnormalities. Patient is asymptomatic here. She states she does have a history of bradycardia. Abdomen is soft, nontender nondistended. Patient is asymptomatic with her mild bradycardia. She will follow-up with her doctor for this. Patient counseled regarding signs and symptoms for which I believe and urgent re-evaluation would be necessary. Patient with good understanding of and agreement to plan and is comfortable going home at this time This document was made in part using voice recognition software. While efforts are made to proofread this document, sound alike and grammatical errors may occur. Departure - Departure Disposition: 01 Home, Self Care Clinical Impression: Flank pain Condition: Good Instructions: ED Abdominal Pain Female Non-Specific Abdominal Pain Follow-Up: Jigar Villafana MD [Primary Care Provider] - Comments: The cause of your pain last night is unclear. Your laboratory testing does not show any significant abnormalities today. Please continue your current medications at home. Please return if you worsen. Your CT scan does not show any acute abnormalities as well. PROCEDURE: CT abdomen pelvis with contrast INDICATIONS: R sided abd pain TECHNIQUE: Helical axial CT of the abdomen and pelvis was obtained after intravenous contrast administration and reformatted in multiple planes. Radiation dose reduction was achieved using automated exposure control or adjustment of mA and/or kV according to patient size. COMPARISON: None FINDINGS: Lower thorax: The lung bases are clear. Heart size normal. No hiatal hernia. Liver: Hepatic parenchyma is diffusely decreased in attenuation without focal mass lesion. Biliary system: No calcified cholelithiasis or pericholecystic inflammation. No evidence of bile duct dilatation. Pancreas: Unremarkable without mass or inflammation evident. Spleen: Normal in size and density. Adrenals: Normal morphology and density. Reproductive system: Unremarkable as visualized. Urinary system: Normal renal size and attenuation. No renal calculi, hydronephrosis, or solid mass present. Urinary bladder unremarkable. Gastrointestinal system: The bowel appears unremarkable with no evidence of bowel obstruction or inflammation. The stomach appears unremarkable. Appendix: No findings to suggest acute appendicitis. Peritoneal spaces: No mesenteric or retroperitoneal adenopathy. No free air. No free fluid. Vasculature: The IVC, aorta and iliac vasculature are unremarkable. Abdominal wall: Abdominal wall is intact without evidence of ventral or inguinal hernias. Musculoskeletal: Normal bone mineralization. No acute fractures. Degenerative disc disease and arthropathy IMPRESSION: No acute CT findings in the abdomen and pelvis. Hepatic fatty infiltration. Degenerative disc disease. Discharge Date/Time: 03/07/24 13:19
[2024-03-07 11:48] LABS: ALBUMIN 3.9 g/dL (3.2-5.5); ALBUMIN/GLOBULIN RATIO 1.6 (1.0-2.2); BILIRUBIN,TOTAL 1.6 mg/dL (0.2-1.0); CALCIUM 9.6 mg/dL (8.5-10.3); POTASSIUM 4.5 mmol/L (3.5-4.5); TOTAL PROTEIN 6.4 g/dL (6.4-8.9)
[2024-03-07] MEDS ORDERED: iohexoL-300 100 ML VIAL ONE (11:53)
--- NOTE | 2024-03-07 12:33 | CT Report ---
PROCEDURE: CT abdomen pelvis with contrast INDICATIONS: R sided abd pain TECHNIQUE: Helical axial CT of the abdomen and pelvis was obtained after intravenous contrast adminis tration and reformatted in multiple planes. Radiation dose reduction was achieved using automated exp osure control or adjustment of mA and/or kV according to patient size. COMPARISON: None FINDINGS: Lower thorax: The lung bases are clear. Heart size normal. No hiatal hernia. Liver: Hepatic parenchyma is diffusely decreased in attenuation without focal mass lesion. Biliary system: No calcified cholelithiasis or pericholecystic inflammation. No evidence of bile du ct dilatation. Pancreas: Unremarkable without mass or inflammation evident. Spleen: Normal in size and density. Adrenals: Normal morphology and density. Reproductive system: Unremarkable as visualized. Urinary system: Normal renal size and attenuation. No renal calculi, hydronephrosis, or solid mass p resent. Urinary bladder unremarkable. Gastrointestinal system: The bowel appears unremarkable with no evidence of bowel obstruction or inf lammation. The stomach appears unremarkable. Appendix: No findings to suggest acute appendicitis. Peritoneal spaces: No mesenteric or retroperitoneal adenopathy. No free air. No free fluid. Vasculature: The IVC, aorta and iliac vasculature are unremarkable. Abdominal wall: Abdominal wall is intact without evidence of ventral or inguinal hernias. Musculoskeletal: Normal bone mineralization. No acute fractures. Degenerative disc disease and arth ropathy IMPRESSION: No acute CT findings in the abdomen and pelvis. Hepatic fatty infiltration. Degenerative disc disease. Reviewed by: Adithya Rust MD on 03/07/2024 11:32 AM EBEN Approved by: Adithya Rust MD on 03/07/2024 11:32 AM AKESEQUIEL Station ID: [id number]
[2024-03-07 13:28] VITALS: BP 136/84; O2SAT 99
[2024-03-07] MEDS: iohexoL-300 100 ML VIAL IVP ONE (14:27)
== END 2024-03-07 13:19 | disposition home or self-care (01) ==
LOC: ED 10:09
DX: R10.31 Right lower quadrant pain (principal); I48.91 Unspecified atrial fibrillation; E03.9 Hypothyroidism, unspecified; Z79.899 Other long term (current) drug therapy
CPT/HCPCS: 36415; 74177; 80053; 81001; 83690; 85025; 93005; 99283; 99284; Q9967; 81003; 87086

== ENCOUNTER 2024-03-12 10:38 | Outpatient (CLI) | payer MEDICARE, OTHER | END 2024-03-12 23:59 | disposition EMS.NT | LOC: EMS 10:38 | DX: M54.9 Dorsalgia, unspecified (principal); W18.30XA Fall on same level, unspecified, initial encounter; Y92.003 Bedroom of unspecified non-institutional (private) residence as the place of occurrence of the external cause ==

== ENCOUNTER 2024-03-23 11:56 | Emergency (ER) | payer MEDICARE, OTHER ==
--- NOTE | 2024-03-23 12:31 | ED Physician Documentation ---
PD HPI BACK PAIN - Stated complaint Stated Complaint: BACK PX,/GI - Chief complaint Chief Complaint: Back Pain - History obtained from History obtained from: Patient - History of Present Illness Timing - onset: How many weeks ago (2) Timing - duration: Weeks (2) Timing - details: Still present, Waxing and waning Location: Mid, Lower, Right Quality: Pain, Aching Associated symptoms: Incontinent of urine (she has noted urinary frequency and dysuria the past several days, with now also some pain right flank/renal area as well as the upper lumbar area pain to the right.). No: Fever, Weakness, Numbness Improves with: No: Rest, Meds (trying tyleonol without improvement.) Worsened by: Movement Contributing factors: Trauma (fell 2 weeks ago with some pain to right/lower back that has persisted. Recently worse and now with urinary symptoms as well.) Similar symptoms before: Diagnosis (the flank pain and dysuria comes from UTIs that she has had frequently. The lower pain from the fall is not common. Denies lower extremity weakness nor numbness.) Review of Systems Constitutional: denies: Fever, Chills Nose: denies: Rhinorrhea / runny nose, Congestion Throat: denies: Sore throat Cardiac: denies: Chest pain / pressure Respiratory: denies: Cough GI: reports: Nausea. 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 Cardiovascular: Cardiac catheterization HEENT: Cataracts - Present Medications Home Medications: Ambulatory Orders Medication Instructions Recorded Confirmed Levothyroxine Sodium [Synthroid] 112 mcg PO QDAC 10/11/17 03/09/24 Multivitamin [Theragran] 1 each PO DAILY 10/11/17 03/09/24 Pravastatin [Pravachol] 40 mg PO QPM 10/11/17 03/09/24 Ubidecarenone/Vit E Acet [Co Q-10 1 cap PO DAILY 10/11/17 03/09/24 100 mg Softgel] Sotalol [Betapace] 40 mg PO 1200 #30 tablet 10/12/17 03/09/24 Furosemide [Lasix] 20 mg PO DAILY #20 tablet 10/29/19 03/09/24 Irbesartan 150 mg PO DAILY 10/29/19 03/09/24 cephALEXin [Keflex] 500 mg PO Q6H #20 cap 11/23/23 03/09/24 Amlodipine Besylate [Norvasc] 5 mg PO DAILY 03/07/24 03/09/24 Anastrozole 1 tab PO DAILY 03/07/24 03/09/24 Aspirin [[place] Aspirin] 1 tab PO DAILY 03/07/24 03/09/24 Escitalopram [Lexapro] 1 tab PO DAILY 03/07/24 03/09/24 Tolterodine [Detrol LA] 1 cap PO DAILY 03/07/24 03/09/24 Torsemide 5 mg PO DAILY 03/07/24 03/09/24 Acetaminophen [Acetaminophen Extra 500 mg PO QID PRN #50 tablet 03/23/24 Strength] Doxycycline Hyclate 100 mg PO BID 7 Days #14 cap 03/23/24 HYDROcod/ACETAM 5/325 [[place] 5/325] 1 ea PO Q6H PRN #12 tablet 03/23/24 Meloxicam [Mobic] 7.5 mg PO BID 10 Days #20 tablet 03/23/24 - Allergies Allergies/Adverse Reactions: Allergies Allergy/AdvReac Type Severity Reaction Status Date / Time ciprofloxacin [From Cipro] Allergy Unknown Verified 03/23/24 12:11 ciprofloxacin HCl * Allergy Unknown Verified 03/23/24 12:11 [From Cipro] - Social History Does the pt smoke?: No Smoking Status: Never smoker Does the pt drink ETOH?: Yes ETOH Use: Wine Does the pt have substance abuse?: No - Immunizations Immunizations are current?: No Immunizations: Other immun not current PD ED PE NORMAL - Vitals Vital signs reviewed: Yes - General General: Alert and oriented X 3, No acute distress, Well developed/nourished - HEENT HEENT: Atraumatic - Neck Neck: Supple, no meningeal sign, No adenopathy - Cardiac Cardiac: No murmur. No: RRR (mildly irregular but good rate.) - Respiratory Respiratory: No respiratory distress, Clear bilaterally - Abdomen Abdomen: Normal bowel sounds, Soft, Non tender, Non distended - Back Back: No spinal TTP, Other (tender to right CVA percussion. No rash, sores, nor redness. ) - Derm Derm: Normal color, Warm and dry - Extremities Extremities: Normal ROM s pain, No edema, No calf tenderness / cord - Neuro Neuro: Alert and oriented X 3, No motor deficit, No sensory deficit (tested in dermatomal patterns for lower extremities. ), Normal speech Results - Vitals Vitals: Vital Signs - 24 hr 03/23/24 03/23/24 03/23/24 12:13 14:20 16:36 Temperature 37.1 C Heart Rate 56 L 51 L 62 Respiratory 18 18 18 Rate Blood Pressure 114/62 171/52 H 183/74 H O2 Saturation 95 97 97 Oxygen O2 Source Room air - Labs Labs: Laboratory Tests 03/23/24 03/23/24 03/23/24 12:59 12:59 13:32 WBC 8.5 RBC 3.89 L Hgb 12.3 Hct 37.5 MCV 96.4 MCH 31.6 H MCHC 32.8 RDW 13.2 Plt Count 174 MPV 10.5 Neut # (Auto) 5.8 Lymph # (Auto) 1.1 L [place] # (Auto) 1.2 H Eos # (Auto) 0.4 Baso # (Auto) 0.1 Absolute Nucleated RBC 0.00 Nucleated RBC % 0.0 Sodium 138 Potassium 3.8 Chloride 107 Carbon Dioxide 26 Anion Gap 5.0 L BUN 34 H Creatinine 1.2 Estimated GFR (MDRD) 42 L Glucose 143 H Calcium 9.5 Magnesium 1.9 Total Bilirubin 0.9 AST 12 ALT 8 L Alkaline Phosphatase 46 Total Protein 6.3 L Albumin 4.0 Globulin 2.3 Albumin/Globulin Ratio 1.7 Lipase 17 Urine Color YELLOW Urine Clarity CLOUDY Urine pH 6.0 Ur Specific [place] 1.020 Urine Protein 30 H Urine Glucose (UA) NEGATIVE Urine Ketones NEGATIVE Urine Occult Blood LARGE H Urine Nitrite NEGATIVE Urine Bilirubin NEGATIVE Urine Urobilinogen 0.2 (NORMAL) Ur Leukocyte Esterase MODERATE H Urine RBC 11-25 H Urine WBC >25 H Urine WBC Clumps PRESENT Ur Squamous Epith Cells RARE Squamous Urine Bacteria Few Ur Microscopic Review INDICATED Urine Culture Comments INDICATED - Rads (name of study) abd/pelvic CT Relevant Findings:: Prelim report reviewed (no kidney stones nor hydro. NO acute findings. No hydroneoprhosis nor stones. spine arthritic but no fractures. No noted canal stenosis. ), EMP independent interpretation of test PD Medical Decision Making - ED course Complexity details: reviewed results (Urine is cloudy and whitish. Most likely c/w some UTI, and will give abx. Currently on Cephalexin as prophylactic. Aller to Cipro. Prior 2 positive urine cultures both had sensitivity to Doxy. ), re- evaluated patient (having improved pain with IV meds. She still has some in lower back with ROM.), d/w patient (had fallen with some lumbar pain since. Now couple days of dysuria/frequency and right flank pain, more likely c/w UTI/pyelonephritis. ) Departure - Departure Disposition: 01 Home, Self Care Clinical Impression: Back pain, Right flank pain, UTI (urinary tract infection) Condition: Stable Record reviewed to determine appropriate education?: Yes Instructions: ED Low Back Pain Injury, ED UTI Cystitis Female Follow-Up: Jigar Villafana MD [Primary Care Provider] - Prescriptions: Acetaminophen [Acetaminophen Extra Strength] 500 mg PO QID PRN #50 tablet PRN Reason: Pain Doxycycline Hyclate 100 mg PO BID 7 Days #14 cap Meloxicam [Mobic] 7.5 mg PO BID 10 Days #20 tablet HYDROcod/ACETAM 5/325 [[place] 5/325] 1 ea PO Q6H PRN #12 tablet PRN Reason: Pain Comments: Your CT scan does not show any signs of kidney stones nor inflamed kidney, abscess, and other intestinal cause for your pain. You do have arthritic changes in the low back. No signs of acute fractures or such. The description of your pain could suggest a back related causes with muscular or arthritis of the spine. However you do have a UTI infection and that certainly can cause pain through the kidney area. I would treat your urinary infection with doxycycline for now. That we will hopefully decrease your symptoms over the next several days. Meanwhile we can go with some Tylenol 500 mg 4 times a day. To that add hydrocodone/acetaminophen if needed for worse pains. Try this to be infrequent and episodic for the pain. Looking at your renal function, could actually be reasonable to do a short-term of anti-inflammatories as well to help with your general symptoms. I wrote for 1 that is just twice a day for the next week. Regular hydration. Continue your other usual medicines. Recheck if not improving well over the next few days. Your urine culture should result in 2 days and we will see if we need to change your antibiotic choice based on that. Will call if we need to. I sent your prescriptions to your preferred pharmacy. I am prescribing a short course of narcotic pain medication for you. These are potentially dangerous and addictive medications that should be used carefully. These medications may constipate you. Take an [id number] stool softener such as docusate twice daily with plenty of water while taking these medications. If you go 24 hours without a bowel movement, take [id number] MiraLAX, per package instructions. Do not drink or drive while taking these medications. If you received narcotic or sedating medications while in the emergency department do not drive for 24 hours. Store this medication in a safe, secure place and out of reach of children. It is a violation of federal law to give or sell this medication to another person or to use in a manner other than prescribed. The ED will not refill narcotic prescriptions, including prescriptions lost or stolen. You can dispose of unwanted medications at the [facility]'s office or at several pharmacies such as [facility]. Discharge Date/Time: 03/23/24 16:38
[2024-03-23 13:06] LABS: BASOPHILS # (AUTO) 0.1 10^3/uL (0.0-0.1); BASOPHILS % (AUTO) 0.7 %; EOSINOPHILS # (AUTO) 0.4 10^3/uL (0.0-0.7); EOSINOPHILS % (AUTO) 4.1 %; HCT - HEMATOCRIT 37.5 % (37.0-47.0); HGB - HEMOGLOBIN 12.3 g/dL (12.0-16.0); LYMPHOCYTES # (AUTO) 1.1 10^3/uL (1.5-3.5); LYMPHOCYTES % (AUTO) 12.5 %; MEAN CORPUSCULAR HEMOGLOBIN 31.6 pg (27.0-31.0); MEAN CORPUSCULAR HGB CONC 32.8 g/dL (32.0-36.0); MEAN CORPUSCULAR VOLUME 96.4 fL (81.0-99.0); MEAN PLATELET VOLUME 10.5 fL (7.9-10.8); MONOCYTES # (AUTO) 1.2 10^3/uL (0.0-1.0); MONOCYTES % (AUTO) 13.6 %; NEUTROPHILS # (AUTO) 5.8 10^3/uL (1.5-6.6); PLT - PLATELET COUNT 174 10^3/uL (130-450); RED BLOOD COUNT 3.89 10^6/uL (4.20-5.40); RED CELL DISTRIBUTION WIDTH 13.2 % (12.0-15.0); WHITE BLOOD COUNT 8.5 x10^3/uL (4.8-10.8)
[2024-03-23 13:23] LABS: ALBUMIN/GLOBULIN RATIO 1.7 (1.0-2.2); BILIRUBIN,TOTAL 0.9 mg/dL (0.2-1.0); CALCIUM 9.5 mg/dL (8.5-10.3); CREATININE 1.2 mg/dL (0.6-1.3); MAGNESIUM 1.9 mg/dL (1.7-2.3); POTASSIUM 3.8 mmol/L (3.5-4.5); TOTAL PROTEIN 6.3 g/dL (6.4-8.9)
[2024-03-23 13:48] LABS: BILIRUBIN,URINE NEGATIVE (NEGATIVE); GLUCOSE, URINE (UA) NEGATIVE (NEGATIVE); KETONES,URINE (UA) NEGATIVE (NEGATIVE); LEUKOCYTE ESTERASE, URINE MODERATE (NEGATIVE); NITRITE,URINE NEGATIVE (NEGATIVE); OCCULT BLOOD,URINE LARGE (NEGATIVE); PROTEIN,URINE 30 mg/dL (NEGATIVE); UROBILINOGEN,URINE 0.2 (NORMAL) E.U./dL (NORMAL)
[2024-03-23 13:50] LABS: CLARITY,URINE CLOUDY (CLEAR)
[2024-03-23 13:51] LABS: BACTERIA,URINE Few /HPF (None Seen); SQUAMOUS EPITHELIAL CELL,UR RARE Squamous (<= Few); WBC CLUMPS,URINE PRESENT; WBC,URINE >25 /HPF (0-5)
[2024-03-23] MEDS ORDERED: iohexoL-300 100 ML VIAL ONE (13:51)
[2024-03-23] MEDS: ONDANSETRON 4 MG/2 ML VIAL IVP STA (14:02)
[2024-03-23] MEDS: DOXYCYCLINE 100 MG TABLET PO STA (14:08)
[2024-03-23] MEDS: cefTRIAXone 1 GM VIAL IVP STA (14:08)
[2024-03-23] MEDS: KETOROLAC 15 MG/ML VIAL IVP STA ×2 (14:08→14:09)
[2024-03-23] MEDS: HYDROmorphone 0.5 MG/0.5 ML SYRINGE IVP STA (14:09)
[2024-03-23] MEDS: SODIUM CHLORIDE 0.9% 1,000 ML IV STA (14:09)
[2024-03-23 14:47] VITALS: O2SAT 97
--- NOTE | 2024-03-23 15:42 | CT Report ---
PROCEDURE: Abdomen/Pelvis W INDICATIONS: lower abd to right flank pain CONTRAST: 100ml [id number] TECHNIQUE: After the administration of intravenous contrast, a CT scan of the abdomen and pelvis was performed. Images were recorded and evaluated at appropriate window settings. Reformats: coronal and sagittal. F or radiation dose reduction, the following was used: automated exposure control, adjustment of mA and /or kV according to patient size. COMPARISON: 03/07/2024, 07/17/2017 FINDINGS: Image quality: Diagnostic Lower chest: Partially visualized scattered scarring and atelectasis, with possible peripheral fibros is/reticulation, mild. Borderline cardiomegaly. Liver: Unremarkable Gallbladder and biliary system: Unremarkable, nondilated Pancreas: No ductal dilation. Mild fatty infiltration Spleen: Nonenlarged Adrenals: Small nodules and thickening again seen similar to 2017 Kidneys: Mild to moderate cortical thinning. No hydronephrosis. Vessels and lymph nodes: The main portal vein is patent. No abdominal aortic aneurysm. No pathologic lymph nodes by size criteria. Bowel and peritoneum: No evidence of small bowel obstruction. There are colonic diverticula. No patho logic ascites. Body wall: Possible small fat-containing umbilical hernia. Pelvis: Bladder is unremarkable. Possible calcified fibroid at the fundus of the uterus. Adnexal stru ctures are unremarkable. Bones: There are degenerative changes, no acute or suspicious finding. IMPRESSION: No acute abdominopelvic abnormality. Likely nonacute/incidental findings above. Reviewed by: Navjot Valentino MD on 03/23/2024 3:41 PM PDT Approved by: Navjot Valentino MD on 03/23/2024 3:41 PM PDT Station ID: [id number]
[2024-03-23 16:42] VITALS: BP 183/74
[2024-03-23] MEDS: iohexoL-300 100 ML VIAL IVP ONE (18:45)
== END 2024-03-23 16:38 | disposition home or self-care (01) ==
LOC: ED 11:56
DX: N39.0 Urinary tract infection, site not specified (principal); I10 Essential (primary) hypertension; I48.91 Unspecified atrial fibrillation
CPT/HCPCS: 36415; 74177; 80053; 81001; 83690; 83735; 85025; 87086; 96374; 96375; 99284; A9270; J1170; Q9967; 81003

== ENCOUNTER 2024-03-26 23:21 | Outpatient (CLI) | payer MEDICARE, OTHER | END 2024-03-26 23:59 | disposition critical access hospital (66) | LOC: EMS 23:21 | DX: R07.89 Other chest pain (principal); R68.84 Jaw pain | CPT/HCPCS: A0425; A0429 ==

== ENCOUNTER 2024-03-26 23:29 | Emergency (ER) | payer MEDICARE, OTHER ==
[2024-03-26 23:58] LABS: BASOPHILS # (AUTO) 0.1 10^3/uL (0.0-0.1); EOSINOPHILS # (AUTO) 0.6 10^3/uL (0.0-0.7); HCT - HEMATOCRIT 39.6 % (37.0-47.0); HGB - HEMOGLOBIN 12.7 g/dL (12.0-16.0); LYMPHOCYTES # (AUTO) 1.5 10^3/uL (1.5-3.5); LYMPHOCYTES % (AUTO) 22.1 %; MEAN CORPUSCULAR HEMOGLOBIN 31.4 pg (27.0-31.0); MEAN CORPUSCULAR HGB CONC 32.1 g/dL (32.0-36.0); MEAN PLATELET VOLUME 10.5 fL (7.9-10.8); MONOCYTES # (AUTO) 0.9 10^3/uL (0.0-1.0); MONOCYTES % (AUTO) 13.8 %; NEUTROPHILS # (AUTO) 3.6 10^3/uL (1.5-6.6); PLT - PLATELET COUNT 180 10^3/uL (130-450); RED BLOOD COUNT 4.04 10^6/uL (4.20-5.40); RED CELL DISTRIBUTION WIDTH 13.1 % (12.0-15.0); WHITE BLOOD COUNT 6.8 x10^3/uL (4.8-10.8)
[2024-03-27] LABS: BILIRUBIN,URINE NEGATIVE (NEGATIVE); GLUCOSE, URINE (UA) NEGATIVE (NEGATIVE); KETONES,URINE (UA) NEGATIVE (NEGATIVE); LEUKOCYTE ESTERASE, URINE SMALL (NEGATIVE); NITRITE,URINE NEGATIVE (NEGATIVE); OCCULT BLOOD,URINE NEGATIVE (NEGATIVE); PROTEIN,URINE NEGATIVE (NEGATIVE); UROBILINOGEN,URINE 0.2 (NORMAL) E.U./dL (NORMAL)
--- NOTE | 2024-03-27 00:07 | ED Physician Documentation ---
PD HPI CHEST PAIN - Stated complaint Stated Complaint: CP - Chief complaint Chief Complaint: Cardiac - History obtained from History obtained from: Patient - Additional information Additional information: 89-year-old woman presents with chest pain at 2240, status post 324 of aspirin, with rapid resolution. Denies shortness of breath, nausea, diaphoresis, fever, cough, leg swelling. 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 Cardiovascular: Cardiac catheterization HEENT: Cataracts - Present Medications Home Medications: Ambulatory Orders Medication Instructions Recorded Confirmed Levothyroxine Sodium [Synthroid] 112 mcg PO QDAC 10/11/17 03/09/24 Multivitamin [Theragran] 1 each PO DAILY 10/11/17 03/09/24 Pravastatin [Pravachol] 40 mg PO QPM 10/11/17 03/09/24 Ubidecarenone/Vit E Acet [Co Q-10 1 cap PO DAILY 10/11/17 03/09/24 100 mg Softgel] Sotalol [Betapace] 40 mg PO 1200 #30 tablet 10/12/17 03/09/24 Furosemide [Lasix] 20 mg PO DAILY #20 tablet 10/29/19 03/09/24 Irbesartan 150 mg PO DAILY 10/29/19 03/09/24 cephALEXin [Keflex] 500 mg PO Q6H #20 cap 11/23/23 03/09/24 Amlodipine Besylate [Norvasc] 5 mg PO DAILY 03/07/24 03/09/24 Anastrozole 1 tab PO DAILY 03/07/24 03/09/24 Aspirin [[place] Aspirin] 1 tab PO DAILY 03/07/24 03/09/24 Escitalopram [Lexapro] 1 tab PO DAILY 03/07/24 03/09/24 Tolterodine [Detrol LA] 1 cap PO DAILY 03/07/24 03/09/24 Torsemide 5 mg PO DAILY 03/07/24 03/09/24 Acetaminophen [Acetaminophen Extra 500 mg PO QID PRN #50 tablet 03/23/24 Strength] Doxycycline Hyclate 100 mg PO BID 7 Days #14 cap 03/23/24 HYDROcod/ACETAM 5/325 [[place] 5/325] 1 ea PO Q6H PRN #12 tablet 03/23/24 Meloxicam [Mobic] 7.5 mg PO BID 10 Days #20 tablet 03/23/24 - Allergies Allergies/Adverse Reactions: Allergies Allergy/AdvReac Type Severity Reaction Status Date / Time ciprofloxacin [From Cipro] Allergy Unknown Verified 03/23/24 12:11 ciprofloxacin HCl * Allergy Unknown Verified 03/23/24 12:11 [From Cipro] - Social History Does the pt smoke?: No Smoking Status: Never smoker Does the pt drink ETOH?: Yes Does the pt have substance abuse?: No - Immunizations Immunizations are current?: No Immunizations: Other immun not current PD ED PE NORMAL - Vitals Vital signs reviewed: Yes - General General: Alert and oriented X 3, No acute distress, Well developed/nourished - HEENT HEENT: Atraumatic, PERRL, EOMI, Moist mucous membranes, Pharynx benign - Neck Neck: Supple, no meningeal sign - Cardiac Cardiac: RRR - Respiratory Respiratory: No respiratory distress, Clear bilaterally - Abdomen Abdomen: Non tender, Non distended - Derm Derm: Normal color, Warm and dry - Extremities Extremities: No edema Results - Vitals Vitals: Vital Signs - 24 hr 03/26/24 03/26/24 03/27/24 23:44 23:49 01:46 Temperature 37 C Heart Rate 60 66 67 Respiratory 18 18 Rate Blood Pressure 187/66 H 181/65 H O2 Saturation 97 96 Oxygen O2 Source Room air - EKG (time done) 2345 EKG releavant findings:: EKG personally interpreted by author of this note. Relevant findings are: Rate: Rate (enter#) (54) Rhythm: NSR Intervals: RBBB Ischemia: Normal ST segments - Labs Labs: Laboratory Tests 03/26/24 03/26/24 03/26/24 23:38 23:41 23:41 WBC 6.8 RBC 4.04 L Hgb 12.7 Hct 39.6 MCV 98.0 MCH 31.4 H MCHC 32.1 RDW 13.1 Plt Count 180 MPV 10.5 Neut # (Auto) 3.6 Lymph # (Auto) 1.5 [place] # (Auto) 0.9 Eos # (Auto) 0.6 Baso # (Auto) 0.1 Absolute Nucleated RBC 0.00 Nucleated RBC % 0.0 Sodium 141 Potassium 4.1 Chloride 110 Carbon Dioxide 25 Anion Gap 6.0 BUN 29 H Creatinine 1.0 Estimated GFR (MDRD) 52 L Glucose 95 Calcium 9.7 Total Bilirubin 0.6 AST 14 ALT 9 L Alkaline Phosphatase 53 Troponin I High Sens 11.3 Total Protein 6.6 Albumin 4.2 Globulin 2.4 Albumin/Globulin Ratio 1.8 Lipase 20 Urine Color YELLOW Urine Clarity HAZY Urine pH 6.0 Ur Specific [place] 1.010 Urine Protein NEGATIVE Urine Glucose (UA) NEGATIVE Urine Ketones NEGATIVE Urine Occult Blood NEGATIVE Urine Nitrite NEGATIVE Urine Bilirubin NEGATIVE Urine Urobilinogen 0.2 (NORMAL) Ur Leukocyte Esterase SMALL H Urine RBC 0-5 Urine WBC 4-5 Ur Squamous Epith Cells RARE Squamous Urine Bacteria None Seen Urine Culture Comments INDICATED PD Medical Decision Making - ED course ED course: 89-year-old woman presents with brief resolved episode of chest pain with 2 negative troponins on workup, completely asymptomatic here in the emergency department with ekg unchanged from previous and benign cardiac monitoring. Plan to follow-up with primary care provider. Return precautions given. Departure - Departure Clinical Impression: Chest pain Condition: Stable Instructions: ED Chest Pain Atypical Unkn Cause Comments: You were seen in the emergency department for chest pain. Your ekg and labwork looked good. Please follow-up with your primary care provider and return to the emergency department if you have any new or worsening symptoms or other concerns. Forms: PCP List
[2024-03-27 00:14] LABS: ALBUMIN 4.2 g/dL (3.2-5.5); ALBUMIN/GLOBULIN RATIO 1.8 (1.0-2.2); BILIRUBIN,TOTAL 0.6 mg/dL (0.2-1.0); CALCIUM 9.7 mg/dL (8.5-10.3); POTASSIUM 4.1 mmol/L (3.5-4.5); TOTAL PROTEIN 6.6 g/dL (6.4-8.9)
[2024-03-27 00:15] LABS: BACTERIA,URINE None Seen /HPF (None Seen); CLARITY,URINE HAZY (CLEAR); RBC,URINE 0-5 /HPF (0-5); SQUAMOUS EPITHELIAL CELL,UR RARE Squamous (<= Few)
[2024-03-27 00:34] LABS: TROPONIN I HIGH SENSITIVITY 11.3 ng/L (2.3-14.8)
[2024-03-27 03:07] VITALS: BP 171/66; O2SAT 98
--- NOTE | 2024-03-27 10:14 | XRAY Report ---
PROCEDURE: Chest 2V INDICATIONS: chest pain TECHNIQUE: 2 views of the chest were acquired. COMPARISON: 12/15/2022 FINDINGS: Surgical changes and devices: Left axillary clips are seen. Lungs and pleura: No pleural effusions or pneumothorax. Lungs are clear. Mediastinum: Mediastinal contours appear normal. Heart size is at the upper limits of normal. Bones and chest wall: No suspicious bony lesions. Age-appropriate degenerative changes are seen. Overlying soft tissues appear unremarkable. IMPRESSION: No acute cardiopulmonary process. Note: No significant discrepancy from the preliminary report. Reviewed by: Tejas Calderon MD on 03/27/2024 9:13 AM EBEN Approved by: Tejas Calderon MD on 03/27/2024 9:13 AM EBEN Station ID: [id number]
== END 2024-03-27 03:18 | disposition home or self-care (01) ==
LOC: EDUNIT# → ED 23:29
DX: R07.9 Chest pain, unspecified (principal); I10 Essential (primary) hypertension; I48.91 Unspecified atrial fibrillation; E03.9 Hypothyroidism, unspecified; Z79.899 Other long term (current) drug therapy
CPT/HCPCS: 36415; 80053; 81001; 83690; 84484; 85025; 87086; 93005; 99284

== ENCOUNTER 2024-04-20 10:30 | Outpatient (CLI) | payer MEDICARE, OTHER ==
--- NOTE | 2024-04-20 17:27 | MRI Report ---
PROCEDURE: Lumbar Spine WO INDICATIONS: DJD LUMBAR SPINE TECHNIQUE: Multiplanar multisequential MRI images of the lumbar spine were obtained without intraven ous contrast. COMPARISON: 01/10/2014 FINDINGS: Alignment and Curvature: There is normal bony alignment. Bone Marrow: Marrow is of normal overall signal. No acute vertebral body compression fractures. No sacral fractures. Spinal Cord: Conus medullaris terminates at the L1 level. Visualized cord demonstrates normal signa l and size. Paraspinal Soft Tissues: Unremarkable perivertebral soft tissues. T12-L1: Disc space narrowing and arthropathy without central stenosis. Moderate right and no left fo raminal stenosis L1-L2: Disc space narrowing and arthropathy results in moderate bilateral foraminal stenosis appea r no central stenosis L2-L3: Disc space narrowing with grade 1 retrolisthesis and disc bulge. No central stenosis. Arthr opathy associated with moderate bilateral foraminal stenosis L3-L4: Disc space narrowing and disc bulge with arthropathy. No central stenosis. Moderate bilatera l foraminal stenosis L4-L5: Disc space narrowing and arthropathy. No central stenosis. Moderate bilateral foraminal sten osis L5-S1: Disc space narrowing and arthropathy. Severe right and moderate left foraminal stenosis. No central stenosis IMPRESSION: Multilevel degenerative disc disease and arthropathy results in varying degrees of central and forami nal stenosis including severe right foraminal stenosis L4-5. Moderate bilateral foraminal stenosis th roughout the exam Reviewed by: Adithya Rust MD on 04/20/2024 4:25 PM EBEN Approved by: Adithya Rust MD on 04/20/2024 4:25 PM AKESEQUIEL Station ID: [id number]
== END 2024-04-20 10:31 | disposition home or self-care (01) ==
LOC: DI 10:30
PROVIDERS: ATTEND Internal Medicine
DX: M47.814 Spondylosis without myelopathy or radiculopathy, thoracic region (principal); M48.04 Spinal stenosis, thoracic region; M47.816 Spondylosis without myelopathy or radiculopathy, lumbar region; M51.36 Other intervertebral disc degeneration, lumbar region; M48.061 Spinal stenosis, lumbar region without neurogenic claudication; M47.817 Spondylosis without myelopathy or radiculopathy, lumbosacral region; M48.07 Spinal stenosis, lumbosacral region

== ENCOUNTER 2024-05-12 14:13 | Outpatient (CLI) | payer MEDICARE, OTHER ==
--- NOTE | 2024-05-12 17:09 | Ultrasound Report ---
PROCEDURE: Carotid Doppler Complete INDICATIONS: TIA, SYNCOPE TECHNIQUE: Color and pulse Doppler interrogation was performed of both carotid systems, with image documentation and velocity measurements. COMPARISON: None. FINDINGS: Right side: Brachial blood pressure: 170/65 mm Hg. Common carotid artery peak systolic velocity: 79.2 cm/sec. Internal carotid artery peak systolic velocity: 119.1 cm/sec. Internal carotid artery end diastolic velocity: 16.8 cm/sec. External carotid artery peak systolic velocity: 102.3 cm/sec. ICA/CCA peak systolic ratio: 1.5 . Torres scale imaging description: Mild atheromatous plaque is present at the carotid bifurcation. Percent internal carotid artery stenosis: Less than 50 percent stenosis. Vertebral artery: Flow direction is antegrade. Left side: Brachial blood pressure: 174/56 mm Hg. Common carotid artery peak systolic velocity: 91.3 cm/sec. Internal carotid artery peak systolic velocity: 106.8 cm/sec. Internal carotid artery end diastolic velocity: 18.8 cm/sec. External carotid artery peak systolic velocity: 51.80 cm/sec. ICA/CCA peak systolic ratio: 1.2 . Torres scale imaging description: Mild atheromatous plaque is present in the distal common carotid art sid at the bifurcation Percent internal carotid artery stenosis: Less than 50 percent stenosis. Vertebral artery: Flow direction is antegrade. IMPRESSION: 1. In the right internal carotid artery, there is less than 50 percent stenosis based on peak systoli c velocity criteria. 2. In the left internal carotid artery, there is less than 50 percent stenosis based on peak systolic velocity criteria. 3. Antegrade blood flow within the right vertebral artery. 4. Antegrade blood flow within the left vertebral artery. The estimate of stenosis included in the report of the imaging study was calculated using the [facility]-end orsed standards of carotid artery stenosis. Reviewed by: Alivia Atkinson MD on 05/12/2024 5:08 PM PDT Approved by: Alivia Atkinson MD on 05/12/2024 5:08 PM PDT Station ID: [id number]
--- NOTE | 2024-05-12 22:43 | MRI Report ---
PROCEDURE: Brain WO INDICATIONS: TIA, SYNCOPE TECHNIQUE: Noncontrast axial T1 spin echo, axial T2 fast spin echo, sagittal and axial FLAIR, coronal T2 fast sp in echo, axial gradient echo, axial diffusion and ADC through the brain. COMPARISON: CT head 01/29/2021 FINDINGS: Image quality: Excellent. The ventricular system and cortical sulci demonstrate atrophy, consistent for patient's stated age. There is mild prominence of the ventricular system in relation to gyral and sulcal atrophy. There are areas of hyperintense T2/FLAIR signal in the periventricular and subcortical white matter. There is no acute intra or extra-axial fluid collection. No acute hemorrhage, mass lesion or midline shift. Brainstem is unremarkable. There are no areas of restricted diffusion. Globes are symmetrical. Oss eous structures are intact. Sinuses: Sinuses demonstrate minimal scattered areas of mucosal thickeni ng in the ethmoid air cells. Minimal fluid is present within the mastoid air cells, right greater nica n left. IMPRESSION: 1. No acute intracranial process. 2. Moderate atrophy and chronic microvascular ischemic changes. Mild ventricular prominence in relat ion to gyral and sulcal atrophy. While this could represent a more central atrophy pattern, recommend correlation to appropriate symptoms as normal pressure hydrocephalus cannot be definitively excluded . Reviewed by: Rosette Higginbotham MD on 05/12/2024 10:42 PM PDT Approved by: Rosette Higginbotham MD on 05/12/2024 10:42 PM PDT Station ID: [id number]
== END 2024-05-12 14:14 | disposition home or self-care (01) ==
LOC: DI 14:13
PROVIDERS: ATTEND Internal Medicine
DX: G45.9 Transient cerebral ischemic attack, unspecified (principal)
CPT/HCPCS: 93880

== ENCOUNTER 2024-06-02 07:26 | Outpatient (CLI) | payer MEDICARE, OTHER | END 2024-06-02 22:23 | disposition critical access hospital (66) | LOC: EMS 07:26 | DX: R51.9 Headache, unspecified (principal); S09.90XA Unspecified injury of head, initial encounter; W18.30XA Fall on same level, unspecified, initial encounter; Y92.002 Bathroom of unspecified non-institutional (private) residence as the place of occurrence of the external cause; I48.91 Unspecified atrial fibrillation; I10 Essential (primary) hypertension | CPT/HCPCS: A0425; A0429 ==

== ENCOUNTER 2024-06-02 07:37 | Emergency (ER) | payer MEDICARE, OTHER ==
--- NOTE | 2024-06-02 07:51 | ED Physician Documentation ---
History of Present Illness - Stated complaint Stated Complaint: GLF - History obtained from History obtained from: Patient, EMS - Additonal information Additional information: The patient is brought to the emergency department by EMS for chief complaint of ground-level fall and near syncopal episode. The patient has been having syncopal episodes for about the last 6 months and has been followed by her doctor for this. She sees Dr. Villafana for primary care. The patient has been wearing an event monitor as part of her workup for this. The patient states that this episode actually was less severe than usual. She states that usually when she has a syncopal episode, she passes out completely and has no knowledge of her fall whatsoever. She states that today, however, she got up to go to the bathroom to have a bowel movement and was walking with her walker when she suddenly had about a 3-second blank. When she got to the threshold to the bathroom. She states that she does not feel that she fully lost consciousness, as she remembers starting to go down and she remembers bumping her head on the wall as she did so. However, the patient is not exactly sure what caused her to fall. She was able to call the medics to help her get up and they brought her here. The patient is not on any anticoagulants, though she has been diagnosed previous only with A-fib. She has not had any changes in her medications or her medication doses recently. No new medications. The patient denies any pain anywhere and states she feels "fine". Medics state the patient has been stable and route with no issues with her blood pressure or blood sugar. She is rate controlled. The patient denies any neck or back pain. No hip pain. No rib pain. No upper extremity pain. No other complaints at this time. PD PAST MEDICAL HISTORY - Past Medical History Cardiovascular: Hypertension, Atrial fibrillation Respiratory: None Neuro: None Endocrine/Autoimmune: HyPOthyroidism GI: None : Chronic bladder infection HEENT: Macular degeneration, Chronic hearing loss Psych: None Musculoskeletal: Osteoarthritis Derm: None - Past Surgical History Past Surgical History: Yes /ORTHOPAEDIC GENERAL: Other Cardiovascular: Cardiac catheterization HEENT: Cataracts - Present Medications Home Medications: Ambulatory Orders Medication Instructions Recorded Confirmed Levothyroxine Sodium [Synthroid] 112 mcg PO QDAC 10/11/17 06/01/24 Multivitamin [Theragran] 1 each PO DAILY 10/11/17 06/01/24 Pravastatin [Pravachol] 40 mg PO QPM 10/11/17 06/01/24 Ubidecarenone/Vit E Acet [Co Q-10 1 cap PO DAILY 10/11/17 06/01/24 100 mg Softgel] Sotalol [Betapace] 40 mg PO 1200 #30 tablet 10/12/17 06/01/24 Furosemide [Lasix] 20 mg PO DAILY #20 tablet 10/29/19 06/01/24 Irbesartan 150 mg PO DAILY 10/29/19 06/01/24 cephALEXin [Keflex] 500 mg PO Q6H #20 cap 11/23/23 06/01/24 Amlodipine Besylate [Norvasc] 5 mg PO DAILY 03/07/24 06/01/24 Anastrozole 1 tab PO DAILY 03/07/24 06/01/24 Aspirin [[place] Aspirin] 1 tab PO DAILY 03/07/24 06/01/24 Escitalopram [Lexapro] 1 tab PO DAILY 03/07/24 06/01/24 Tolterodine [Detrol LA] 1 cap PO DAILY 03/07/24 06/01/24 Torsemide 5 mg PO DAILY 03/07/24 06/01/24 Acetaminophen [Acetaminophen Extra 500 mg PO QID PRN #50 tablet 03/23/24 06/01/24 Strength] Doxycycline Hyclate 100 mg PO BID 7 Days #14 cap 03/23/24 06/01/24 HYDROcod/ACETAM 5/325 [[place] 5/325] 1 ea PO Q6H PRN #12 tablet 03/23/24 06/01/24 Meloxicam [Mobic] 7.5 mg PO BID 10 Days #20 tablet 03/23/24 06/01/24 Gabapentin [Neurontin] 1 - 3 cap PO HS 05/21/24 06/01/24 - Allergies Allergies/Adverse Reactions: Allergies Allergy/AdvReac Type Severity Reaction Status Date / Time ciprofloxacin [From Cipro] Allergy Unknown Verified 06/02/24 07:59 ciprofloxacin HCl * Allergy Unknown Verified 06/02/24 07:59 [From Cipro] - Social History Does the pt smoke?: No Smoking Status: Never smoker Does the pt drink ETOH?: Yes Does the pt have substance abuse?: No - Immunizations Immunizations are current?: No Immunizations: Other immun not current PD ED PE NORMAL - Vitals Vital signs reviewed: Yes - General General: Alert and oriented X 3, No acute distress, Well developed/nourished - HEENT HEENT: Atraumatic, PERRL, EOMI, Moist mucous membranes - Neck Neck: Supple, no meningeal sign, No bony TTP - Cardiac Cardiac: RRR, No murmur, Strong equal pulses - Respiratory Respiratory: No respiratory distress, Clear bilaterally - Abdomen Abdomen: Soft, Non tender, Non distended - Back Back: No spinal TTP - Derm Derm: Normal color, Warm and dry, No rash - Extremities Extremities: No deformity, No tenderness to palpate, Normal ROM s pain, No edema - 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 Relevant findings are: Rate: Rate (enter#) (63) Rhythm: NSR [place]: Normal Intervals: RBBB QRS: Normal Ischemia: ST depression (Borderline) Compare to prior EKG: Old EKG unavailable Computer interpretation: Agree with computer - Labs Labs: Microbiology 06/02/24 09:05 Urine Culture - Final Urine,Random 10-50,000 COLONIES/ML Polymicrobial growth including potential pathogens. This is suggestive of skin or other contamination. Laboratory Tests 06/02/24 06/02/24 06/02/24 08:10 08:10 09:05 WBC 7.3 RBC 4.14 L Hgb 12.9 Hct 40.3 MCV 97.3 MCH 31.2 H MCHC 32.0 RDW 13.2 Plt Count 151 MPV 10.4 Neut # (Auto) 5.0 Lymph # (Auto) 0.9 L [place] # (Auto) 1.2 H Eos # (Auto) 0.2 Baso # (Auto) 0.0 Absolute Nucleated RBC 0.00 Nucleated RBC % 0.0 Sodium 141 Potassium 4.0 Chloride 110 Carbon Dioxide 25 Anion Gap 6.0 BUN 29 H Creatinine 1.2 Estimated GFR (MDRD) 42 L Glucose 100 Calcium 9.6 Total Bilirubin 0.8 AST 15 ALT 10 Alkaline Phosphatase 52 Total Protein 6.3 L Albumin 3.9 Globulin 2.4 Albumin/Globulin Ratio 1.6 Lipase 19 Urine Color DARK YELLOW Urine Clarity CLEAR Urine pH 6.0 Ur Specific [place] 1.020 Urine Protein NEGATIVE Urine Glucose (UA) NEGATIVE Urine Ketones NEGATIVE Urine Occult Blood NEGATIVE Urine Nitrite NEGATIVE Urine Bilirubin NEGATIVE Urine Urobilinogen 0.2 (NORMAL) Ur Leukocyte Esterase SMALL H Urine RBC 0-5 Urine WBC 6-10 H Ur Epithelial Cells RARE Transitional Ur Squamous Epith Cells RARE Squamous Urine Bacteria Few Urine Casts 0-2 WBC Casts Ur Microscopic Review INDICATED Urine Culture Comments INDICATED - Rads (name of study) head CT Relevant Findings:: Final report received, See rad report (nad) PD Medical Decision Making - ED course Complexity details: reviewed old records, reviewed results, re-evaluated patient, considered differential, d/w patient ED course: Patient was evaluated by myself immediately upon arrival with EMS and was well- appearing. The patient was placed on the campus monitor upon arrival in the emergency department, and was found to be in a normal sinus rhythm. The patient was started on a liter bolus of point in normal saline and worked up with labs, EKG, and CT scan of the head. She was alert, with no distracting injuries and had a completely nontender spine at all levels, with no complaints of pain. She was moving freely and I did not find evidence of a C-spine injury. Patient's workup was negative. We have discussed the need for follow-up and the usual indications for return. Departure - Departure Disposition: 01 Home, Self Care Clinical Impression: Ground-level fall Closed head injury Qualifiers: Encounter type: initial encounter Qualified Code(s): S09.90XA - Unspecified injury of head, initial encounter Condition: Stable Instructions: ED Head Injury Closed Comments: Your labs and head CT look good. Your heart is in normal rhythm at this time. Please follow-up with your primary doctor for further concerns. Forms: PCP List Discharge Date/Time: 06/02/24 10:15
[2024-06-02 08:02] VITALS: O2SAT 98
[2024-06-02] MEDS: SODIUM CHLORIDE 0.9% 1,000 ML IV STA (08:16)
[2024-06-02 08:20] LABS: BASOPHILS % (AUTO) 0.3 %; EOSINOPHILS # (AUTO) 0.2 10^3/uL (0.0-0.7); EOSINOPHILS % (AUTO) 2.9 %; HCT - HEMATOCRIT 40.3 % (37.0-47.0); HGB - HEMOGLOBIN 12.9 g/dL (12.0-16.0); LYMPHOCYTES # (AUTO) 0.9 10^3/uL (1.5-3.5); LYMPHOCYTES % (AUTO) 12.4 %; MEAN CORPUSCULAR HEMOGLOBIN 31.2 pg (27.0-31.0); MEAN CORPUSCULAR VOLUME 97.3 fL (81.0-99.0); MEAN PLATELET VOLUME 10.4 fL (7.9-10.8); MONOCYTES # (AUTO) 1.2 10^3/uL (0.0-1.0); PLT - PLATELET COUNT 151 10^3/uL (130-450); RED BLOOD COUNT 4.14 10^6/uL (4.20-5.40); RED CELL DISTRIBUTION WIDTH 13.2 % (12.0-15.0); WHITE BLOOD COUNT 7.3 x10^3/uL (4.8-10.8)
[2024-06-02 08:40] LABS: ALBUMIN 3.9 g/dL (3.2-5.5); ALBUMIN/GLOBULIN RATIO 1.6 (1.0-2.2); BILIRUBIN,TOTAL 0.8 mg/dL (0.2-1.0); CALCIUM 9.6 mg/dL (8.5-10.3); CREATININE 1.2 mg/dL (0.6-1.3); TOTAL PROTEIN 6.3 g/dL (6.4-8.9)
--- NOTE | 2024-06-02 08:40 | CT Report ---
PROCEDURE: Head WO INDICATIONS: head injury/fall TECHNIQUE: Noncontrast 4.5 mm thick angled axial sections acquired from the foramen magnum to the vertex. For r adiation dose reduction, the following was used: automated exposure control, adjustment of mA and/or kV according to patient size. COMPARISON: 01/29/2021. FINDINGS: Image quality: Excellent. Stable findings. CSF spaces: Basal cisterns are patent. No extra-axial fluid collections. Ventriculomegaly, symmetri c, somewhat out of proportion to the amount of sulcal prominence. Brain: No midline shift. No intracranial masses or hemorrhage. Torres-white matter interface is norm al. Intracranial carotid calcifications. Age-related volume loss and small vessel ischemic change. Skull and face: Calvarium and visualized facial bones are intact, without suspicious lesions. Sinuses: Visualized sinuses and mastoids are clear. IMPRESSION: 1. No acute intracranial pathology. 2. Note made of ventriculomegaly which is somewhat out of proportion to the amount of sulcal prominen ce this is chronic and stable. Reviewed by: Bony Croft MD on 06/02/2024 8:39 AM PDT Approved by: Bony Croft MD on 06/02/2024 8:39 AM PDT Station ID: [id number]
[2024-06-02 09:20] LABS: BILIRUBIN,URINE NEGATIVE (NEGATIVE); GLUCOSE, URINE (UA) NEGATIVE (NEGATIVE); KETONES,URINE (UA) NEGATIVE (NEGATIVE); LEUKOCYTE ESTERASE, URINE SMALL (NEGATIVE); NITRITE,URINE NEGATIVE (NEGATIVE); OCCULT BLOOD,URINE NEGATIVE (NEGATIVE); PROTEIN,URINE NEGATIVE (NEGATIVE); UROBILINOGEN,URINE 0.2 (NORMAL) E.U./dL (NORMAL)
[2024-06-02 09:22] LABS: CLARITY,URINE CLEAR (CLEAR)
[2024-06-02 09:37] LABS: BACTERIA,URINE Few /HPF (None Seen); CASTS, URINE 0-2 WBC Casts /LPF; EPITHELIAL CELLS,UR RARE Transitional /HPF (<= Few); RBC,URINE 0-5 /HPF (0-5); SQUAMOUS EPITHELIAL CELL,UR RARE Squamous (<= Few)
[2024-06-02 10:39] VITALS: BP 159/64
== END 2024-06-02 10:15 | disposition home or self-care (01) ==
LOC: EDUNIT# → ED 07:37
DX: S09.90XA Unspecified injury of head, initial encounter (principal); W18.39XA Other fall on same level, initial encounter; I48.91 Unspecified atrial fibrillation; I10 Essential (primary) hypertension; E03.9 Hypothyroidism, unspecified; Z79.82 Long term (current) use of aspirin; Z79.899 Other long term (current) drug therapy
CPT/HCPCS: 36415; 80053; 81001; 81003; 83690; 85025; 87086; 93005; 99283; 99284

== ENCOUNTER 2024-06-13 08:00 | Outpatient (CLI) | payer MEDICARE, OTHER | END 2024-06-13 23:59 | disposition home or self-care (01) | LOC: LAB.R 08:00 | PROVIDERS: ATTEND Internal Medicine | DX: K52.9 Noninfective gastroenteritis and colitis, unspecified (principal) | CPT/HCPCS: 87045; 87046; 87329; 87427; 87493 ==

== ENCOUNTER 2024-06-23 10:28 | Outpatient (CLI) | payer MEDICARE, OTHER | END 2024-06-23 10:29 | disposition home or self-care (01) | LOC: DI 10:28 | PROVIDERS: ATTEND Internal Medicine | DX: I35.1 Nonrheumatic aortic (valve) insufficiency (principal); R55 Syncope and collapse | CPT/HCPCS: 93307 ==